=== PATIENT | male | born 1940 | race Caucasian/White ===

== ENCOUNTER 2016-11-23 11:50 | Emergency (ER) | payer MEDICARE, MEDICAID ==
[~2016-11-23] VITALS: Ht 182.9 cm; Wt 93.0 kg
[~2016-11-23 11:50] MED LIST: DUONEB 3 MG/3 ML3 ML IH; OMEPRAZOLE20 MG PO; SPIRIVA18 MCG; VICODIN 5/500 T1 TAB PO
[2016-11-23] MEDS ORDERED: LISINOPRIL20 MG PO (12:00)
[2016-11-23] MEDS ORDERED: CLONAZEPAM0.5 M1 PO (12:00)
[2016-11-23] MEDS ORDERED: POTASSIUM CHLO10 ME1 PO (12:01)
[2016-11-23] MEDS ORDERED: ISOSORBIDE MONO30 MG PO (12:01)
[2016-11-23] MEDS ORDERED: OMEPRAZOLE40 MG PO (12:01)
[2016-11-23] MEDS ORDERED: FUROSEMIDE 20MG20 MG PO (12:01)
[2016-11-23] MEDS ORDERED: SYMBICORT1 AE1 IH (12:02)
[2016-11-23] MEDS ORDERED: ATORVASTATIN CA20 M1 PO (12:02)
[2016-11-23] MEDS ORDERED: ASPIRIN 81MG TA81 MG PO (12:02)
[2016-11-23] MEDS ORDERED: TIZANIDINE HCL 44 MG PO (12:02)
[2016-11-23] MEDS ORDERED: IPRATROPIUM 2.2.5 ML INH (12:03)
--- NOTE | 2016-11-23 12:04 | Emergency Room Report ---
See Addendum History of Present Illness Time Seen by 1200 Presenting Problem in Triage Pt arrived:Walked Presenting Problem:PT REPORTS SWELLING IN GENITAL AREA X2 DAYS. PT REPORTS HE NOTICED ITCHING IN GENITAL AREA 2 DAYS AGO AND THEN SWELLING. PT DENIES ANY KNOWN INJURY. PT DENIES URINARY SYMPTOMS Onset of symptoms date/time:11/21/16/ or onset unknown for:MEDICAL HX UNKNOWN Treatment Prior to Arrival: [employer]MENT [employer] Provided by: Sepsis Risk Assessment: Temp: 97.9 B/P: 141/88 MAP: 105 Pulse: 87 Resp: 18 Recent fever? N Clinical Suspician of Infection? N Mental Status: 1 - Regular (Normal Baseline) Sepsis Risk:Low Sepsis Risk Have you (or family members/close friends) recently traveled outside the [place]? N If Yes, where/when: Have you had exposure to infectious disease within the past month? N TB? Other? Specify: Patient reports intense itching to scrotal area with edema over the past two days. Able to urinate. Not diabetic. No fever or vomiting. No urinary sx. ALLERGIES Coded Allergies: Macrolides (08/27/11) Home Medications Reported Medications Clonazepam (Clonazepam 0.5MG) 0.5 MG PO DAILY #30 Lisinopril 20 MG PO DAILY #30 Potassium Chloride 10 MEQ PO BID #60 Furosemide (Furosemide) 20 MG PO DAILY #30 Isosorbide Mononitrate (Isosorbide Mononitrate ER) 30 MG PO DAILY #30 Omeprazole (Omeprazole 40MG) 40 MG PO DAILY #30 TIZANIDINE HCL (Tizanidine Hcl 4 Mg Tablet) 4 MG PO BID #60 BUDESONIDE/FORMOTEROL FUMARATE (Symbicort 160-4.5 Mcg Inhaler) 1 PUFF IH BID #10 Atorvastatin Calcium 20 MG PO DAILY #30 ASPIRIN (Aspirin) 81 MG PO DAILY Ipratropium [place] (Ipratropium 0.5MG Neb Soln) 0.5 MG INH TID History Medical History General CAD? No Angina: Yes [place]: No Hypertension? No Hyperlipidemia? Yes CHF? No COPD? Yes Asthma? Yes Hernia? No Thyroid Problems? No Hypothyroidism? No CVA? No Seizures? No Diabetes? No UTI? No Stones? No GB Disease: Yes Hepatitis? No Arthritis? Yes Cataracts? No Glaucoma? No TB? No Cancer? No More? No Immunization Hx DT/Tetanus > 10 YRS Flu Refused Pneumonia Received In Past Surgical Hx Previous Surgery?Y LAP POPPY Family History Family Hx Diabetes No CAD Yes Hypertension Yes Hyperlipidemia No Cancer Yes TB No Social History Smoking Hx Smoker: Current Every Day Smoker Tobacco: Yes Type Cigarettes Packs/day 1 1/2 - 2 Packs Alcohol Alcohol: No Review of Systems All Other Systems Reviewed and Negative Genitourinary see HPI. Physical Exam Vital Signs Vital Signs Date Time Temp Pulse Resp B/P Pulse O2 O2 Flow FiO2 Ox Delivery Rate 11/23 1338 72 18 139/74 94 11/23 1153 97.9 87 18 141/88 96 General Appearance normal appearance, WD/WN, no apparent distress Eye Exam - bilateral eye normal exam, bilateral eye PERRL Respiratory Status No: respiratory distress. Cardiovascular no peripheral edema Male Genitalia grossly edematous scrotum with no klaudia masses or tenderness; no abscess or streaks; diffusely erythematous without any satellite lesions; genitals are eclipsed by edematous scrotum but no d/c or lesions noted. Neurologic alert, normal exam, no motor/sensory deficits (ambulatory) Medical Decision Making LABS/Meds/Orders Pt receiving controlled substance in ED? No Results/Orders Laboratory Tests 11/23/16 1205: Urine Color YELLOW, Urine Appearance CLEAR, Urine pH 6.0, Ur Specific [place] 1.015, Urine Protein NEGATIVE, Urine Ketones NEGATIVE, Urine Blood TRACE-INTACT, Urine Nitrate NEGATIVE, Urine Bilirubin NEGATIVE, Urine Urobilinogen 0.2, Ur Leukocyte Esterase TRACE H, Urine RBC OCC, Urine WBC OCC, Ur Squamous Epith Cells 3-5, Urine Bacteria 2+, Hyaline Casts 5-10, Urine Mucus 2+, Urine Glucose NEGATIVE Orders Procedure Date/time Status CULTURE, URINE 11/23 1205 Active US SCROTUM 11/23 1201 Active URINALYSIS/COMPLETE 11/23 1201 Complete XRAY/CT/US XRAY/CT/US Ultrasound scrotal US: good flow; bilateral hydroceles plus an area that is either walled off hydrocele or spermatocele per d/w Dr. Trejo; no hernia; not at all turbid. No free fluid in the pelvis. US Interpretation by reviewed by me, discussed w/radiologist US results normal (see above) Departure Departure Time of Disposition 3 Disposition DC Home or Self Care(routine) Clinical Impression Primary Impression: Hydrocele, bilateral Condition STABLE Referrals Radha GARCÍA,Andriy Vora Patient Instructions Hydrocele Additional Instructions Rx Doxycycline; see Dr. Garcia tomorrow at specialty clinic as you need a urology consult for the fluid in the scrotal area. Use jock strap for scrotal support. Appointment is at 11 AM on November 24, 2016. Discharge Counseling Counseled pt/family regarding diagnosis, test results, medications/RX, home care, follow up needs Prescriptions Current Visit Scripts Doxycycline Hyclate 100 MG PO BID #20 CAP ED Critical Care Critical Care No at 1436
[2016-11-23 12:08] LABS: URINE BILIRUBIN - DIPSTICK NEGATIVE (NEG); URINE BLOOD TRACE-INTACT (NEG)
--- OUTSIDE RECORDS SUMMARY | 2016-11-23 12:24 | External Medical Summary Rpt ---
Author Author , NATHANIEL ARMSTRONG Address Unknown Phone [email or web address] Providers Care Sustainability Coordinator Name Role Phone AHMED ADN, AHMED ADN Unavailable Unavailable ALI AMJ, ALI AMJ Unavailable Unavailable RAHMAN, RAHMAN Unavailable Unavailable [facility] Unavailable Unavailable [facility], [facility], [facility] Unavailable Unavailable [facility], Unavailable Unavailable [facility], Unavailable Unavailable [facility], Unavailable Unavailable [facility] LAITH DOWELL, LAITH Unavailable Unavailable [facility], Unavailable Unavailable [facility] DONAHUE LEONCIO, DONAHUE LEONCIO Unavailable Unavailable DONAHUE LEONCIO, DONAHUE LEONCIO Unavailable Unavailable VANESSA JR MATIAS, VANESSA Unavailable Unavailable JR MATIAS VANESSA JR MATIAS, VANESSA Unavailable Unavailable JR MATIAS CANDELARIA ASHWINI, Unavailable Unavailable CANDELARIA ASHWINI NIDA II, NIDA II Unavailable Unavailable TREVINO EDWARD, Unavailable Unavailable TREVINO EDWARD TREVINO EDWARD, Unavailable Unavailable TREVINO EDWARD ERUM WANG, Unavailable Unavailable LIBIACHNEIDER KATHLEEN WANG, Unavailable Unavailable HAGCHDANKIDER KATHLEEN DANIELSON, Unavailable Unavailable JOSE K, LIBIACHKAREN, JOSE K [facility] Unavailable Unavailable INC, [facility] ALAINA ERNST, FOLEY Unavailable Unavailable K[facility] WILLIAN FOLEY, Unavailable Unavailable WILLIAN FOLEY [facility], Unavailable Unavailable [facility], Unavailable Unavailable [facility] Unavailable Unavailable INC, [facility] OCHOA AUD, OCHOA AUD Unavailable Unavailable [facility] Unavailable Unavailable [facility], [facility] Unavailable Unavailable [facility], [facility] Unavailable Unavailable HOLDINGS, [facility] ZULETA, ZULETA Unavailable Unavailable [facility] Unavailable Unavailable ASSOCIAT, [facility] TOBIN, TOBIN Unavailable Unavailable 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 Unavailable Unavailable CO [facility], 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, Unavailable Unavailable [facility] LEONCIO DONAHUE MD Unavailable Unavailable CONSULTING SRV, LEONCIO DONAHUE MD CONSULT[facility]V SCALF, SCALF Unavailable Unavailable SCALF KLEVER, SCALF KLEVER Unavailable Unavailable LAURA, LAURA Unavailable Unavailable [facility], Unavailable Unavailable [facility] Unavailable Unavailable [facility], [facility] Unavailable Unavailable [facility], [facility] Unavailable Unavailable PHYSICIAN SERVI, [facility] SPEACH ALB, SPEACH Unavailable Unavailable ALB SPEACH ALB, SPEACH Unavailable Unavailable ALB TAMAREN VIKRAM, TAMAREN Unavailable Unavailable VIKRAM TAMAREN VIKRAM, TAMAREN Unavailable Unavailable VIKRAM АННАCHRISTOPHERN, KIMBERLY, Unavailable Unavailable [facility] Unavailable Unavailable [facility], Unavailable [facility], Unavailable [facility]available [facility] Purpose Continuity of Care Document - 08-11-2007 through 2016 Problems Code Diagnosis DOS Provider Status J449 CHRONIC 10-01-2016 [facility] DISEASE UNS I2510 ASHD RAMAH NAVAJO CHAPTER 05-14-2016 [facility]ARY [facility] ARTERY W/O INC ANGINA PECTORIS I509 HEART 05-14-2016 [facility] FAILURE [facility] UNSPECIFIED INC I272 OTHER 04-30-2016 [facility] HYPERTENSIO N 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 INC R0600 DYSPNEA 04-30-2016 [facility] UNSPECIFIED [facility] INC R0602 SHORTNESS 04-30-2016 [facility] OF BREATH PHYSIC[facility]ANS GROUP R9439 ABNORMAL 04-30-2016 [facility] RESULT OT PHYSICIANS CARDIOVASCU GROUP LR FUNCTION STUDY I10 ESSENTIAL 04-24-2016 [facility] HYP[facility] N I209 ANGINA 04-24-2016 [facility] PECT[facility]IS [facility] UNSPECIFIED INC I739 PERIPHERAL 04-24-2016 [place] [facility] DISEASE [facility]ING ASS UNSPECIFIED R0989 OTH SPEC SX 04-24-2016 [place] & SIGNS MEDICAL INVLV THE IMAGING ASS CIRC & RESP SYS Z720 TOBACCO USE 04-24-2016 [facility] I208 OTHER FORMS 04-15-2016 [facility] ANGINA PHYSICIANS PECTORIS GROUP I340 NONRHEUMATI 04-15-2016 [facility] INSUFFICIEN CY I517 CARDIOMEGAL 04-15-2016 [facility] J440 COPD WITH 04-08-2016 [facility] RESPIRATORY INFECTION R079 CHEST PAIN 04-08-2016 [facility] U[facility]PECIFIED SERV [facility] R4182 ALTERED 02-09-2016 [facility] STATUS UNSPECIFIED A25675 OTHER LONG 01-14-2016 [facility] TERM MIGUELANGEL CURRENT HOLDINGS DRUG THERAPY I5043 ACUTE ON 06-11-2015 [facility] DONAHUE CHRONIC COMB CONSULTING SYSTOLIC & SRV DIASTOLIC CHF D696 THROMBOCYTO 06-10-2015 [facility] PH[facility]ICIAN UNSPECIFIED SERVI J111 FLU D/T 06-10-2015 [facility] UNIDENTIFIE N PHYSICIAN D FLU VIRUS SERVI W/OTH RESP MANIF J441 CHRONIC 06-10-2015 [facility] OBSTRUCTIVE N PHYSICIAN PULMONARY SERVI DZ W/EXACERBAT ION N179 ACUTE 06-10-2015 [facility] KIDNEY N PHYSICIAN FAILURE SERVI UNSPECIFIED L48744 DECREASED 06-09-2015 [facility] BLOOD [facility] CELL COUNT [facility] UNSPECIFIED E785 HYPERLIPIDE 06-09-2015 [facility] UNSPECIFIED HOSPITAL 496 CHRONIC 12-24-2014 [facility] NEC 2720 PURE 11-09-2014 LEONCIO DONAHUE HYPERCHOLES TEROLEMIA CONSULTING SRV 4019 UNSPECIFIED 11-09-2014 LEON[facility]IO DONAHUE ESSENTIAL HYPERTENSIO CONSULTING N SRV 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 RAMAH NAVAJO CHAPTER CONSULTING CORONARY SRV ARTERY 66188 OTHER 09-18-2014 [place] NONSPECIFIC MEDICAL ABNORMAL IMAGING ASS FINDING OF LUNG FIELD 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 UNSPECIFIED 3899 UNSPECIFIED 04-30-2014 [facility] LOSS 5589 OTH&UNSPEC 05-03-2013 [facility] NONINFECTIO CLINIC US GASTROENTER ITIS&COLITI S 5781 BLOOD IN 05-03-2013 [facility] STOOL [facility]INIC 68443 ABDOMINAL 05-03-2013 [facility] PAIN, CLINIC UNSPECIFIED SITE 7823 EDEMA 10-11-2012 [facility] LEONCIO 7851 PALPITATION 09-01-2012 [facility] LE[facility] S 4280 CONGESTIVE 08-31-2012 [facility] HEART 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 FAILURE [facility] UNSPECIFIED [facility]OS 4293 CARDIOMEGAL 08-31-2012 [facility], Y AGRICULT[employer] 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 [facility] 4299 UNSPECIFIED 08-31-2012 [facility] HEART AGRICULTURE 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 [place]EASE [facility] 28597 OTHER 08-02-2012 [facility] DISEASES OF [place] KATHLEEN LUNG NOT ELSEWHERE CLASSIFIED 4928 OTHER 06-09-2012 [facility] EMPHYSEMA [facility] 75949 SHORTNESS 05-05-2012 [facility], OF BREATH AGRICULTURE 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 [facility] 7862 COUGH 02-22-2012 [facility], AGRICULTURE 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 [facility] 79966 OBSTRUCTIVE 02-08-2012 [facility] CHRONIC EDWARD BRONCHITIS WITH EXACERBATIO N 605 REDUNDANT 08-27-2011 [facility] PREPUCE AND MEM [facility] PHIMOSIS INC V5866 LONG-TERM 08-27-2011 [facility] USE OF MEM [facility] ASPIRIN INC 07086 UNSPECIFIED 08-20-2011 VANESSA HOLLAND URINARY MATIAS INCONTINENC E 71907 ESOPHAGEAL 08-18-2011 [facility] REFLUX 31118 ABDOMINAL 08-18-2011 [facility] PAIN, EPIGASTRIC 5780 HEMATEMESIS 08-14-2011 TAMAREN VIKRAM 25906 OTHER 08-13-2011 [place] DISEASES OF RADIOLOGY SPLEEN ASSOCIAT 47008 DIVERTICULO 08-13-[facility] COLON ASSOCIAT 5738 OTHER 08-13-[facility] SPECIFIED RADIOLOGY DISORDERS ASSOCIAT OF LIVER 50098 OTHER 08-13-[facility] SPECIFIED RADIOLOGY DISORDERS ASSOCIAT OF BLADDER 7245 UNSPECIFIED 08-13-2011 AHMED ADN BACKACHE 85461 CHEST PAIN 08-13-2011 AHMED ADN UNSPECIFIED 486 PNEUMONIA, 07-25-2011 TAMAREN VIKRAM ORGANISM UNSPECIFIED 49305 OTHER 07-23-2011 [facility] PAIN 99160 CHILLS 07-23-2011 [facility] WITHOUT HOSPITAL FEVER 55802 CLOSED 06-25-2011 [facility], FRACTURE OF [facility] RIB, [facility] UNSPECIFIED HOS 28690 CLOSED 06-25-2011 [place] FRACTURE OF RADIOLOGY ONE RIB ASSOCIAT E8889 UNSPECIFIED 06-25-2011 [place] [facility] ASSOCIAT 47182 GEN 04-22-2011 BEL[facility] OSTEOARTHRO EDWARD SIS INVOLVING MULTIPLE SITES 4619 ACUTE 02-23-2011 [facility] SINUSITIS, CLINIC PSC UNSPECIFIED 7080 ALLERGIC 01-30-2011 [facility] URTICARIA CLINIC PSC 9951 ANGIONEUROT 04-16-2010 MIN IC EDEMA CLINIC PSC NOT ELSEWHERE CLASSIFIED 4139 OTHER AND 01-13-2010 [facility] UNSPECIFIED CLINIC PSC ANGINA PECTORIS 52895 OSTEOARTHRO 10-24-2009 MIN S UNSPEC CLINIC PSC WHETHER GEN/LOC UNSPEC SITE 05223 COR 05-29-2009 [place] [facility] UNSPEC ASSOCIATES TYPE VESSEL PSC RAMAH NAVAJO CHAPTER/JESSICA T 7931 NONSPEC 05-29-2009 [facility] OT EXAM BODY STRUCT LUNG FIELD V1582 PERS HX 05-29-2009 [facility] TOBACCO USE HOSPITAL PRESENTING [facility] 7863 HEMOPTYSIS 12-05-2008 [facility] HOSPITAL 27973 OSTEOARTHRO 07-26-2008 [facility] SIS UNSPEC CLINIC PSC WHETHER GEN/LOC LOWER LEG 490 BRONCHITIS 04-27-2008 MIN NOT CLINIC PSC SPECIFIED ACUTE OR CHRONIC 59227 OTHER 04-27-2008 [facility] [place] [address] ABDOMINAL 01-17-2008 [facility] PAIN RIGHT HOSPITAL UPPER QUADRANT V4589 OTHER 01-17-2008 [facility] L STATUS OTHER V5869 LONG-TERM 01-17-2008 [facility] (CURRENT) HOSPITAL USE OF OTHER MEDICATIONS 6918 OTHER 08-11-2007 [facility] DERMATITIS AND RELATED CONDITIONS R06.02 SHORTNESS OF BREATH R07.9 CHEST PAIN, UNSPECIFIED Medications Na ND Rx Da Fi Fi Am Da Di Ph RX Ph St me C No te ll ll ou ys ag ar # ys at rm s nt no ma ic us Or Da si cy ia de te s n re d BE 68 10 10 1 40 13 SO 38 TA Ac NZ 38 -3 -3 .0 PE 85 MA ti ON 20 RS 05 RE ve AT 24 20 20 N AT 80 11 11 FA JA E 1 MS NE 20 LY T [address] UG CA PS UL E AL 24 10 10 0 24 24 SO 38 TA Ac LE 38 -0 -0 .0 PE 62 MA ti RG 50 7- 7- 00 RS 80 RE ve Y 46 20 20 N 25 26 11 11 FA JA 2 MS NE MG LY T CA DR PS UG UL E 00 10 10 0 30 30 SO 38 TA Ac 90 -0 -0 .0 PE 62 MA ti 45 7- 7- 00 RS 81 RE ve 82 20 20 N 94 11 11 FA JA 6 MS NE LY T DR UG CL 00 09 09 2 60 30 SO 38 TA Ac ON 22 -2 -2 .0 PE 50 MA ti AZ 83 3- 3- 00 RS 53 RE ve EP 00 20 20 N AM 35 11 11 FA JA 0 MS NE 0. LY T [address] UG TA BL ET DE 50 08 08 0 12 3 SO 38 TA Ac OM 38 -0 -0 0. PE 03 MA ti ET 30 4- 4- 00 RS 83 RE ve HAMPT[place] 80 20 20 0 N ZI 41 11 11 FA JA NE 6 MS NE -C LY T OD EI DR NE UG SY RU P CL 00 07 07 2 30 30 SO 37 TA Ac ON 22 -0 -0 .0 PE 77 MA ti AZ 83 5- 5- 00 RS 43 RE ve EP 00 20 20 N AM 35 11 11 FA JA 0 MS NE 0. LY T [address] UG TA BL ET 00 07 07 0 24 4 SO 37 TA Ac 12 -0 -0 0. PE 77 MA ti 10 5- 5- 00 RS 60 RE ve 63 20 20 0 N 81 11 11 FA JA 6 MS NE LY T DR UG DE 50 06 06 0 24 6 SO 37 TA Ac OM 38 -0 -0 0. PE 51 MA ti ET 30 2- 2- 00 RS 85 RE ve HAMPTON 80 20 20 0 N ZI 41 11 11 FA JA NE 6 MS NE -C LY T OD EI DR NE UG SY RU P CL 00 02 02 2 30 30 HO 10 TA Ac ON 22 -2 -2 .0 PK 15 MA ti AZ 83 4- 4- 00 IN 30 RE ve EP 00 20 20 S 9 N AM [address] JA 0 UG NE 0. T 5 CO MG MP AN TA Y BL IN ET C CL 00 09 01 2 30 30 HO 10 TA Ac ON 22 -2 -2 .0 PK 10 MA ti AZ 83 7- 1- 00 IN 97 RE ve EP 00 20 20 S 5 N AM [address] JA 0 UG NE 0. T 5 CO MG MP AN TA Y BL IN ET C DE 00 09 09 24 6 HO 10 TA Ac OM 60 -2 -2 0. PK 10 MA ti ET 31 7- 7- 00 IN 96 RE ve [place]AM[place] 58 20 20 0 S 2 N ZI [address] JA NE 8 UG NE -C T OD CO EI MP NE AN Y SY IN RU C P CL 00 09 09 2 30 30 HO 10 TA Ac ON 22 -2 -2 .0 PK 10 MA ti AZ 83 7- 7- 00 IN 97 RE ve EP 00 20 20 S 5 N AM [address] JA 0 UG NE 0. T 5 CO MG MP AN TA Y BL IN ET C PE 00 08 [address] Ac RM 47 -0 -0 .0 PK 09 ON ti ET 25 9- 9- 00 IN 62 E ve HR 24 20 20 S 0 DI IN [address] VIVIANA 7 UG E 1% D CO LO MP TI AN ON Y IN C CL 00 06 07 2 30 30 HO 10 TA Ac ON 22 -0 -2 .0 PK 07 MA ti AZ 83 1- 9- 00 IN 83 RE ve EP 00 20 20 S 0 N AM [address] CHRIS 0 UG NE 0. T 5 CO MG MP AN TA Y BL IN ET C CL 00 06 07 2 30 30 HO 10 TA Ac ON 22 -0 -0 .0 PK 07 MA ti AZ 83 1- 1- 00 IN 83 RE ve EP 00 20 20 S 0 N AM [address] PEREZ 0 UG NE 0. T 5 CO MG MP AN TA Y BL IN ET C CL 00 06 06 2 30 30 HO 10 TA Ac ON 22 -0 -0 .0 PK 07 MA ti AZ 83 1- 1- 00 IN 83 RE ve EP 00 20 20 S 0 N AM [address] CHRIS 0 UG NE 0. T 5 CO MG MP AN TA Y BL IN ET C CL 00 11 04 2 30 30 HO 10 TA Ac ON 22 -1 -2 .0 PK 01 MA ti AZ 83 9- 3- 00 IN 76 RE ve EP 00 20 20 S 8 N AM [address] PEREZ 0 UG NE 0. T 5 CO MG MP AN TA Y BL IN ET C CL 00 11 03 2 30 30 HO 10 TA Ac ON 22 -1 -0 .0 PK 01 MA ti AZ 83 9- 3- 00 IN 76 RE ve EP 00 20 20 S 8 N AM [address] CHRIS 0 UG NE 0. T 5 CO MG MP AN TA Y BL IN ET C CL 00 11 12 00 30 30 HO 10 TA Ac ON 22 -1 -0 .0 PK 01 MA ti AZ 83 9- 3- 00 IN 76 RE ve EP 00 20 20 S 8 N AM [address] PEREZ 0 UG NE 0. T 5 CO MG IN TA C BL ET CL 00 04 08 02 30 30 HO 99 TA Ac ON 18 -0 -1 .0 PK 43 MA ti AZ 50 2- 3- 00 IN 73 RE ve EP 06 20 20 S N AM [address] PEREZ 5 UG NE 0. T 5 CO MG IN TA C BL ET 53 08 08 00 12 12 HO 99 TA Ac 01 -0 -1 0. PK 79 MA ti 40 5- 3- 00 IN 82 RE ve 54 20 20 0 S N [address] PEREZ 7 UG NE T CO IN C CL 00 04 06 01 30 30 HO 99 TA Ac ON 18 -0 -0 .0 PK 43 MA ti AZ 50 2- 4- 00 IN 73 RE ve EP 06 20 20 S N AM [address] PEREZ 5 UG NE 0. T 5 CO MG IN TA C BL ET 53 04 05 00 12 12 HO 99 TA Ac 01 -2 -0 0. PK 50 MA ti 40 3- 7- 00 IN 65 RE ve 54 20 20 0 S N [address] PERE[facility] 7 UG NE T CO IN C CL 00 04 04 00 30 30 HO 99 TA Ac ON 18 -0 -0 .0 PK 43 MA ti AZ 50 2- 9- 00 IN 73 RE ve EP 06 20 20 S N AM [address] PEREZ 5 UG NE 0. T 5 CO MG IN TA C BL ET 53 01 01 00 12 12 HO 99 TA Ac 01 -2 -3 0. PK 21 MA ti 40 2- 0- 00 IN 64 RE ve 54 20 20 0 S N [address] PEREZ 7 UG NE T CO IN C CL 00 01 01 00 15 30 HO 99 TA Ac ON 09 -0 -1 .0 PK 15 MA ti AZ 30 5- 5- 00 IN 74 RE ve EP 83 20 20 S N AM [address] PEREZ 1 1 UG NE T MG CO TA IN BL C ET 63 01 01 [address] Ac 82 -0 -1 .0 PK 15 ON ti 40 2- 5- 00 IN 18 E ve 05 20 20 S DI [address] MICHELLE 0 UG E D CO IN C CL 00 10 10 00 30 30 HO 98 No Ac ON 18 -1 -2 .0 PK 89 t ti AZ 50 6- 3- 00 IN 99 Av ve EP 06 20 20 S ai AM [address] rascon 1 UG bl 0. e 5 CO MG IN TA C BL ET CL 00 07 09 01 30 30 HO 98 No Ac ON 18 -1 -2 .0 PK 62 t ti AZ 50 7- 6- 00 IN 23 Av ve EP 06 20 20 S ai AM [address] rascon 1 UG bl 0. e 5 CO MG IN TA C BL ET CL 00 07 08 00 30 30 HO 98 No Ac ON 18 -1 -0 .0 PK 62 t ti AZ 50 7- 1- 00 IN 23 Av ve EP 06 20 20 S ai AM [address] rascon 1 UG bl 0. e 5 CO MG IN TA C BL ET BE 68 04 04 00 90 30 HO 98 No Ac NZ 38 -1 -2 .0 PK 34 t ti ON 20 7- 4- 00 IN 26 Av ve AT 24 20 20 S ai AT [address] León 1 UG bl 20 e 0 CO MG IN CA C PS UL E Procedures Procedure DOS Code Location Performer Comment ADMN SET A7003 YOUR YOUR VOL 7 PHARMACY PHARMACY NONFILTR [employer] PNEUMAT NEBULIZR DISPBL ADMN SET A7003 YOUR YOUR VOL 7 PHARMACY PHARMACY NONFIL [employer] PNEUMAT NEBULIZR DISPBL IPRATROPI J7644 YOUR YOUR UM 7 PHARMACY PHARMACY BR[facility] [employer] INHAL NON-CP U DOSE PER MG PRESSURIZ 18412 [facility] ED/NONPRE 7 [facility] SS[facility]ED [facility] INC INHALATIO N TREATMENT BRNCDILAT 36951 [facility] RSPSE 7 [facility] SPMTRY INC INC PRE&POST- BRNCDILAT ADMN GAS 49378 [facility] DILUT/WAS 7 [facility] HOUT LUNG INC INC VOL W/[place] DISTRIB VENT&[place] [address] [facility] DIFFUSING 7 [facility] CAPACITY INC INC NONINVASI 03678 [facility] VE 7 [facility] EAR/PULSE INC INC OXIMETRY MULTIPLE DETER ADMN SET A7003 YOUR YOUR VOL 7 PHARMACY PHARMACY NONFILTR [employer] PNEUMAT NEBULIZR DISPBL IPRATROPI J7644 YOUR YOUR UM 7 PHARMACY PHARMACY BR[facility]IDE [employer] INHAL NON-CP U DOSE PER MG NEBULIZER E0570 [facility] WITH 7 HOME HOME [facility] R EQUIPME EQUIPME ADMN SET A7003 YOUR YOUR VOL 7 PHARMACY PHARMACY [facility] PNEUMAT NEBULIZR DISPBL IPRATROPI J7644 YOUR YOUR UM 7 PHARMACY PHARMACY [facility] INHAL NON-CP U DOSE PER MG PHRM Q0513 YOUR YOUR DISPENSIN 7 PHARMACY PHARMACY G FEE [facility] INHALATIO N RX; PER 30 DAYS ECG 23705 [facility] ROUTINE 7 [facility] ECG INC INC W/LEAST 12 LDS TRCG ONLY W/O I&R NEBULIZER E0570 AXEL REYNA WITH 7 [facility] R EQUIPME EQUIPME LOCM Q9967 [facility] 300-399 7 [facility] MG/ML INC INC IODINE CONCENTRA TION PER ML BASIC 04973 [facility] METABOLIC 7 [facility] PANEL INC INC CALCIUM TOTAL GASES 07860 [facility] BLOOD O2 7 [facility] SATURATIO INC INC N ONLY DIRECT JOSÉ INTRDUCR/ C1894 [facility] SHEATH 7 [facility] NOT GUID INC INC INTRACARD EP NON-LASR R & L HRT 72607 [facility] CATH 7 PHYSICIAN WINJX HRT S GROUP ART& L VENTR IMG GUIDE C1769 [facility] WIRE 7 [facility] INC INC CATHETER C1725 [facility] TRANSLUMI 7 [facility] NAL INC INC ANGIOPLAS TY NON-LASER INJECTION J1644 [facility] HEPARIN 7 [facility] SODIUM INC INC PER 1000 UNITS BLOOD 44431 [facility] COUNT 7 [facility] COMPLETE INC INC AUTO&AUTO DIFRNTL WBC ECG 26170 [facility] ROUTINE 7 [facility] ECG INC INC W/LEAST 12 LDS TRCG ONLY W/O I&R NON-INVAS 14155 [place] [facility] NIC 6 MEDICAL PHYSIOLOG IMAGING IC STUDY ASS EXTREMITY 3 LEVLS DUPLEX 33714 [facility] SCAN 6 MEDICAL EXTRACRAN IMAGING IAL ART ASS COMPL BI STUDY TECHNETIU A9500 [facility] M TC-99M 6 [facility] SESTAMIBI INC INC DX PER STUDY DOSE CV STRS 86867 [facility] TST 6 [facility] XERS&/OR INC INC RX CONT ECG TRCG ONLY MYOCARDIA 21557 [facility] L SPECT 6 [facility] MULTIPLE INC INC STUDIES ECHO 07781 [facility] TTHRC R-T 6 MEM H[facility]OS[facility] 2D INC INC W/WOM-MOD E COMPL SPEC&COLR D ECHO 39655 [place] [facility] TRANSTHOR 6 MEDICAL C R-T 2D SERV W/WO FOUNDATIO M-MODE N REC F-UP/LMTD INJECTION J2785 [facility] 6 [facility] REGADENOS INC INC ON 0.1 MG NEBULIZER E0570 AXEL REYNA WITH 6 HOME HOME [facility] MEDICAL MEDICAL R EQUIPME EQUIPME ECG 45813 [facility] ROUTINE 6 [facility] ECG INC INC W/LEAST 12 LDS TRCG ONLY W/O I&R IPRATROPI J7644 YOUR YOUR UM 6 PHARMACY PHARMACY BROMIDE [employer] INHAL NON-CP U DOSE PER MG PHRM Q0513 YOUR YOUR DISPENSIN 6 PHARMACY PHARMACY G FEE [employer] INHALATIO N RX; PER 30 DAYS ADMN SET A7003 YOUR YOUR SM VOL 6 PHARMACY PHARMACY [facility] [place] [address] [facility] [place] SEBASTIAN HEAD/BRAI 6 RADIOLOGY N W/O CONTRAST MATERIAL RADIOLOGI 07196 [facility] [place] SCALF C EXAM 6 RADIOLOGY CHEST 2 VIEWS FRONTAL&L ATERAL IPRATROPI J7644 YOUR YOUR UM 6 PHARMACY PHARMACY BROMIDE [employer] INHAL NON-CP U DOSE PER MG PHRM Q0513 YOUR YOUR DISPENSIN 6 PHARMACY PHARMACY G FEE [employer] INHALATIO N RX; PER 30 DAYS ADMN SET A7003 YOUR YOUR SM VOL 6 PHARMACY PHARMACY NONFIL[employer] LLC PNEUMAT NEBULIZR DISPBL DRUG TST G0483 [facility] DEFINITV [address] [place] [employer] HOLDINGS METH P DAY 22/MORE DR TAYLOR ADMN SET A7003 AXEL REYNA SM VOL 6 HOME HOME NONFILTR MEDICAL MEDICAL PNEUMAT EQUIPME EQUIPME NEBULIZR DISPBL NEBULIZER E0570 AXEL REYNA WITH 6 HOME HOME COMPRESSO MEDICAL MEDICAL R EQUIPME EQUIPME ADMN SET A7003 YOUR OCHOA AUD SM VOL 6 PHARMACY NONFILTR LLC PNEUMAT NEBULIZR DISPBL PHRM Q0513 YOUR [place] AUD DISPENSIN 6 PHARMACY G FEE LLC INHALATIO N RX; PER 30 DAYS IPRATROPI J7644 YOUR [place]CHOA AUD UM 6 PHARMACY BROMIDE LLC INHAL NON-CP U DOSE PER MG IPRATROPI J7644 YOUR YOUR UM 6 PHARMACY PHARMACY [facility] LLC LLC INHAL NON-CP U DOSE PER MG PHRM Q0513 YOUR YOUR DISPENSIN 6 PHARMACY PHARMACY G FEE LLC LLC INHALATIO N RX; PER 30 DAYS ADMN SET A7003 YOUR YOUR VOL 6 PHARMACY PHARMACY NONFILTR LLC LLC PNEUMAT NEBULIZR [facility] [address] [facility] 6 PREMA DAY PHYSICIAN MANAGEMEN SERVI T > 30 MIN SBSQ 96431 [place] [address] PREMA CARE/DAY PHYSICIAN 25 SERVI MINUTES SBSQ 11923 [place] [address] PREMA CARE/DAY PHYSICIAN 25 SERVI MINUTES ECHO 12635 LEONCIO DONAHUE DONAHUE LEONCIO TTHRC R-T 6 2D CONSULTIN W/WOM-MOD G SRV E COMPL SPEC&COLR D SBSQ 74031 [place] [address] PREMA CARE/DAY PHYSICIAN 35 SERVI MINUTES INITIAL 36506 [facility] 6 [facility] C[facility]/DAY PHYSICIAN 70 SERVI MINUTES RADIOLOGI 27326 [facility] [place] SCALF KLEVER C EXAM 6 RADIOLOGY CHEST 2 VIEWS FRONTAL&L ATERAL IPRATROPI J7644 YOUR YOUR UM 5 PHARMACY PHARMACY [facility] LLC LLC INHAL NON-CP U DOSE PER MG PHRM Q0513 YOUR YOUR DISPENSIN 5 PHARMACY PHARMACY G FEE LLC LLC INHALATIO N RX; PER 30 DAYS PHRM Q0513 YOUR YOUR DISPENSIN 5 [facility] INHALATIO N RX; PER 30 DAYS IPRATROPI J7644 YOUR YOUR 5 [facility] INHAL NON-CP U DOSE PER MG ECG 58075 LEONCIO DONAHUE DONAHUE LEONCIO ROUTINE 5 MD ECG CONSULTIN W/LEAST G SRV 12 LDS W/I&R IPRATROPI J7644 YOUR YOUR 5 [facility] INHAL NON-CP U DOSE PER MG PHRM Q0513 YOUR YOUR DISPENSIN 5 [facility] INHALATIO N RX; PER 30 DAYS PHRM Q0513 YOUR YOUR DISPENSIN 5 [facility] INHALATIO N RX; PER 30 DAYS IPRATROPI J7644 YOUR YOUR 5 [facility] INHAL NON-CP U DOSE PER MG CT THORAX 00129 [facility] ASHWINI CONTRAST IMAGING MATERIAL ASS IPRATROPI J7644 YOUR YOUR 5 [facility] INHAL NON-CP U DOSE PER MG PHRM Q0513 YOUR YOUR DISPENSIN 5 [facility] INHALATIO N RX; PER 30 DAYS COMPRE 66401 SPEACH SPEACH AUDIOMETR 5 ALB ALB Y THRESHOLD EVAL SP RECOGNIJ COLLECTIO 69837 MIN [facility] N VENOUS 5 CLINIC CLINIC BLOOD VENIPUNCT URE IPRATROPI J7644 YOUR YOUR 4 [facility] INHAL NON-CP U DOSE PER MG PHRM Q0513 YOUR YOUR DISPENSIN 4 [facility] INHALATIO N RX; PER 30 DAYS PHRM Q0513 YOUR YOUR DISPENSIN 4 [facility] INHALATIO N RX; PER 30 DAYS IPRATROPI J7644 YOUR YOUR 4 [facility] INHAL NON-CP U DOSE PER MG IPRATROPI J7644 YOUR YOUR 4 [facility] INHAL NON-CP U DOSE PER MG PHRM Q0513 YOUR YOUR DISPENSIN 4 [facility] INHALATIO N RX; PER 30 DAYS IPRATROPI J7644 YOUR YOUR 4 [facility] INHAL NON-CP U DOSE PER MG PHRM Q0513 YOUR YOUR DISPENSIN 4 [facility] INHALATIO N RX; PER 30 DAYS IPRATROPI J7644 YOUR YOUR 4 [facility] INHAL NON-CP U DOSE PER MG PHRM Q0513 YOUR YOUR DISPENSIN 4 [facility] INHALATIO N RX; PER 30 DAYS IPRATROPI J7644 YOUR YOUR 4 [facility] INHAL NON-CP U DOSE PER MG PHRM Q0513 YOUR YOUR DISPENSIN 4 [facility] INHALATIO N RX; PER 30 DAYS IPRATROPI J7644 YOUR YOUR 4 [facility] INHAL NON-CP U DOSE PER MG PHRM Q0513 YOUR YOUR DISPENSIN 4 [facility] INHALATIO N RX; PER 30 DAYS PHRM Q0513 YOUR YOUR DISPENSIN 4 [facility] INHALATIO N RX; PER 30 DAYS IPRATROPI J7644 YOUR YOUR 4 [facility] INHAL NON-CP U DOSE PER MG ADMN SET A7003 YOUR YOUR VOL 4 [facility] PNEUMAT NEBULIZR DISPBL IPRATROPI J7644 YOUR YOUR 3 [facility] INHAL NON-CP U DOSE PER MG PHRM Q0513 YOUR YOUR DISPENSIN 3 [facility] INHALATIO N RX; PER 30 DAYS PHRM Q0513 YOUR YOUR DISPENSIN 3 [facility] INHALATIO N RX; PER 30 DAYS IPRATROPI J7644 YOUR YOUR 3 PHARMACY PHARMACY [employer] [facility] INHAL NON-CP U DOSE PER MG DUP-SCAN 82497 DONAHUE LEONCIO DONAHUE LEONCIO XTR VEINS 3 COMPLETE BILATERAL STUDY IPRATROPI J7644 YOUR YOUR 3 [facility] INHAL NON-CP U DOSE PER MG PHRM Q0513 YOUR YOUR DISPENSIN 3 PHARMACY PHARMACY [facility] INHALATIO N RX; PER 30 DAYS IPRATROPI J7644 YOUR YOUR 3 [facility] INHAL NON-CP U DOSE PER MG PHRM Q0513 YOUR YOUR DISPENSIN 3 [facility]Y [facility] INHALATIO N RX; PER 30 DAYS ECHO 85497 DONAHUE LEONCIO DONAHUE LEONCOI TTHRC R-T 3 2D W/WOM-MOD E COMPL SPEC&COLR D ECHO 58472 [employer], 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 2D PEREZ PEREZ W/WOM-MOD CO HOS CO HOS E COMPL SPEC&COLR D ECG 45779 DONAHUE LEONCIO DONAHUE LEONCIO ROUTINE 3 ECG W/LEAST 12 LDS I&R ONLY ECG 57881 [employer], ROUTINE 3 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 ECG PEREZ PEREZ W/LEAST CO HOS CO HOS 12 LDS TRCG ONLY W/O I&R IPRATROPI J7644 YOUR YOUR 3 [facility] INHAL NON-CP U DOSE PER MG PHRM Q0513 YOUR YOUR DISPENSIN 3 [facility]ARMACY PHARMAC[facility] INHALATIO N RX; PER 30 DAYS RADIOLOGI 16814 FABIAN PERALTA C EXAM 3 EIDER KATHLEEN EIDER KATHLEEN CHEST 2 VIEWS FRONTAL&L ATERAL BLOOD 38888 [employer], COUNT 3 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 COMPLETE PEREZ TODD AUTO&AUTO CO HOS CO HOS DIFRNTL WBC COMPREHEN 22581 [employer], SIVE 3 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 METABOLIC PEREZ TODD PANEL CO HOS CO HOS IPRATROPI J7644 YOUR YOUR 3 PHARMACY PHARMAC[facility] INHAL NON-CP U DOSE PER MG PHRM Q0513 YOUR YOUR DISPENSIN 3 [facility]ARMACY PHARMACY [facility] INHALATIO N RX; PER 30 DAYS 3D 69393 SHAYY LUCAS RENDERING 3 [facility] INC INC W/INTERP& POSTPROC DIFF WORK STATION CT THORAX 64218 CANDELARIA GAONA W/O 3 ASHWINI ASHWINI CONTRAST MATERIAL NONINVASI 39930 [facility] LUCAS VE 3 [facility] EAR/PULSE INC INC OXIMETRY SINGLE DETER SPMTRY 88221 SHAYY LUCAS W/VC 3 [facility] EXPIRATOR INC INC Y SHAWNA W/WO MXML VOL VNTJ RADIOLOGI 48160 LAITH OZUNA C EXAM 3 MAGALYS MAGALYS CHEST 2 VIEWS FRONTAL&L ATERAL ADMN SET A7003 YOUR YOUR SM VOL 2 PHARMACY PH[facility]ACY [facility] PNEUMAT NEBULIZR DISPBL ALBUTEROL J7620 YOUR YOUR TO 2.5 2 PHARMACY PHARMACY MG IPRATROPI UM BROM TO 0.5 MG RADIOLOGI 52147 [facility], MHC INC, C EXAM 2 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 CHEST 2 PEREZ PEREZ VIEWS CO HOS CO HOS FRONTAL&L ATERAL INJECTION J0696 BELINDA TREVINO 2 [facility] CEFTRIAXO NE SODIUM PER 250 MG INJECTION J1030 BELINDA TREVINO 2 [facility] METHYLPRE DNISOLONE ACETATE 40 MG ALBUTEROL J7620 YOUR YOUR TO 2.5 2 PHARMACY PHARMACY [facility] IPRATROPI UM BROM TO 0.5 MG ADMN SET A7003 YOUR YOUR SM VOL [address] [facility] PNEUMAT NEBULIZR DISPBL ADMN SET A7003 YOUR YOUR SM VOL [address] [facility] PNEUMAT NEBULIZR DISPBL ALBUTEROL J7620 YOUR YOUR TO 2.5 2 PHARMACY PHARMACY [facility] IPRATROPI UM BROM TO 0.5 MG ALBUTEROL J7620 YOUR YOUR TO 2.5 2 PHARMACY PHARMACY [facility] IPRATROPI UM BROM TO 0.5 MG ADMN SET A7003 YOUR YOUR SM VOL [address] [facility] PNEUMAT NEBULIZR DISPBL ALBUTEROL J7620 YOUR YOUR TO 2.5 2 PHARMACY PHARMACY [facility] IPRATROPI UM BROM TO 0.5 MG ADMN SET A7003 YOUR YOUR SM VOL 2 PHARMACY PHARMACY [facility] PNEUMAT NEBULIZR DISPBL ADMN SET A7003 YOUR YOUR SM VOL 2 [facility] PNEUMAT NEBULIZR DISPBL ALBUTEROL J7620 YOUR YOUR TO 2.5 2 PHARMACY PHARMACY [facility] IPRATROP[place] 0[place] [address] SHAYY LUCAS INFUSION 2 [facility] THERAPY/P INC INC ROPHYLAXI S /DX 1ST TO 1 HR THERAPEUT 52312 SHAYY LUCAS IC 2 [facility] INJECTION INC [place] [address] SHAYY LUCAS INFUSION 2 [facility] THERAPY INC INC PROPHYLAX IS/DX EA HOUR CIRCUMCIS 62861 SHAYY LUCAS ION AGE 2 [facility] >28 DAYS INC INC ECG 96054 DONAHUE LEONCIO DONAHUE LEONCIO ROUTINE 2 ECG W/LEAST 12 LDS I&R ONLY OBSERVATI 18897 LAUREN AGUILAR ON CARE 2 Apr DISCHARGE MANAGEMEN T RADEX ABD 17537 [facility] COMPL 2 EIDER KATHLEEN AQT ABD RADIOLOGY W/S/E/D ASSOCI[place] [place] [address] [facility] ABDOMEN & 2 MAGALYS PELVIS RADIOLOGY W/O ASSOCIAT CONTRST 1/> [facility] 01617 LAUREN AGUILAR DISCHARGE 2 Apr DAY MANAGEMEN T 30 MIN/< RADIOLOGI 93672 [facility] C 2 KLEVER EXAMINATI RADIOLOGY ON CHEST ASSOCIAT SING[place]IEW FRONTAL RADEX 38448 [facility] RIBS UNI 2 EIDER KATHLEEN W/POSTERO RADIOLOGY ANT CH ASSOCIAT MINIMUM 3 VIEWS RADIOLOGI 22517 [facility] C EXAM 2 EIDER KATHLEEN CHEST 2 RADIOLOGY VIEWS ASSOCIAT FRONTAL&L ATERAL ALBUTEROL J7620 YOUR YOUR TO 2.5 2 PHARMACY PHARMACY [facility] IPRATROPI UM BROM TO 0.5 MG ADMN SET A7003 YOUR YOUR SM VOL 2 PHARMACY PHARMACY [facility] PNEUMAT NEBULIZR DISPBL INJECTION J0696 BELINDA TREVINO 2 [facility] CEFTRIAXO NE SODIUM PER 250 MG INJECTION J1030 BELINDA TREVINO 2 [facility] METHYLPRE DNISOLONE ACETATE 40 MG ALBUTEROL J7620 YOUR YOUR TO 2.5 2 PHARMACY PHARMACY [facility] IPRATROPI UM BROM TO 0.5 MG ADMN SET A7003 YOUR YOUR SM VOL 2 PHARMACY PHARMACY [facility] PNEUMAT NEBULIZR DISPBL ADMN SET A7003 YOUR YOUR SM VOL 1 PHARMACY PHARMACY [facility] PNEUMAT NEBULIZR DISPBL ALBUTEROL J7620 YOUR YOUR TO 2.5 1 PHARMACY PHARMACY MG IPRATROPI UM BROM TO 0.5 MG INJECTION J1100 BELINDA TREVINO 1 [facility] DEXAMETHO SONE SODIUM PHOSPHATE 1 MG INJECTION J1030 BELINDA TREVINO 1 [facility] METHYLPRE DNISOLONE ACETATE 40 MG INJECTION J0696 BELINDA TREVINO 1 [facility] CEFTRIAXO NE SODIUM PER 250 MG INJECTION J1100 BELINDA TREVINO 1 [facility] DEXAMETHO SONE SODIUM PHOSPHATE 1 MG ALBUTEROL J7620 YOUR YOUR TO 2.5 1 PHARMACY PHARMACY [facility] IPRATROPI UM BROM TO 0.5 MG ADMN SET A7003 YOUR YOUR SM VOL [address] [facility] PNEUMAT NEBULIZR DISPBL ADMN SET A7003 YOUR YOUR SM VOL [address] [facility] PNEUMAT NEBULIZR DISPBL ALBUTEROL J7620 YOUR YOUR TO 2.5 1 PHARMACY PHARMACY [facility] IPRATROPI UM BROM TO 0.5 MG PHRM Q0513 YOUR YOUR DISPENSIN 1 PHARMACY PHARMACY [facility] [employer] [facility] INHALATIO N RX; PER 30 DAYS INJECTION J1100 MIN TREVINO 1 CLINIC [facility] DEXAMETHO PSC SONE SODIUM PHOSPHATE 1 MG RADIOLOGI 16342 PEREZ Stahl EXAM 1 CO CO CHEST 2 HOSPITAL HOSPITAL VIEWS FRONTAL&L ATERAL INJECTION J1100 MIN TREVINO 1 CLINIC [facility] DEXAMETHO PSC SONE SODIUM PHOSPHATE 1 MG ALBUTEROL J7620 YOUR YOUR TO 2.5 1 PHARMACY PHARMACY [facility] IPRATROPI UM BROM TO 0.5 MG ADMN SET A7003 YOUR YOUR SM VOL 1 [facility] PNEUMAT NEBULIZR DISPBL PHRM Q0513 YOUR YOUR DISPENSIN 1 PHARMACY PHARMACY [facility] INHALATIO N RX; PER 30 DAYS PHRM Q0513 YOUR YOUR DISPENSIN 1 PHARMACY PHARMACY [facility] INHALATIO N RX; PER 30 DAYS ALBUTEROL J7620 YOUR YOUR TO 2.5 1 PHARMACY PHARMACY [facility] IPRATROPI UM BROM TO 0.5 MG ADMN SET A7003 YOUR YOUR SM VOL 1 [facility] [employer] [facility] PNEUMAT NEBULIZR DISPBL ADMN SET A7003 YOUR YOUR SM VOL 0 [facility] PNEUMAT NEBULIZR DISPBL ALBUTEROL J7620 YOUR YOUR TO 2.5 0 PHARMACY PHARMACY [facility] IPRATROPI UM BROM TO 0.5 MG PHRM Q0513 YOUR YOUR DISPENSIN 0 PHARMACY PHARMACY [facility] INHALATIO N RX; PER 30 DAYS INJECTION J1030 MIN TAMAREN 0 CLINIC VIKRAM METHYLPRE PSC DNISOLONE ACETATE 40 MG INJECTION J1100 MIN TAMAREN 0 CLINIC VIKRAM DEXAMETHO PSC SONE SODIUM PHOSPHATE 1 MG ADMN SET A7003 YOUR YOUR SM VOL 0 PHARMACY PHARMACY [facility] PNEUMAT NEBULIZR DISPBL PHRM Q0513 YOUR YOUR DISPENSIN 0 PHARMACY PHARMACY [facility] INHALATIO N RX; PER 30 DAYS ALBUTEROL J7620 YOUR YOUR TO 2.5 0 PHARMACY PHARMACY [facility] IPRATROPI UM BROM TO 0.5 MG PHRM Q0513 YOUR YOUR DISPENSIN 0 PHARMACY PHARMACY [facility] INHALATIO N RX; PER 30 DAYS ALBUTEROL J7620 YOUR YOUR TO 2.5 0 PHARMACY PHARMACY MG & LLC LLC IPRATROPI UM BROM TO 0.5 MG ADMN SET A7003 YOUR YOUR SM VOL 0 PHARMACY PHARMACY NON[facility] LLC LLC PNEUMAT NEBULIZR DISPBL CREATINE 77928 PEREZ TODD KINASE 0 [facility] MYOGLOBIN 72975 [facility] BASIC 88717 [facility]EREZ TODD METABOLIC 0 [facility] CALCIUM TOTAL CREATINE 89139 PEREZ TODD KINASE MB 0 [facility] ONLY COLLECTIO 33327 PEREZ TODD N VENOUS 0 CO CO BLOOD [facility] VENIPUNCT URE BLOOD 85254 PEREZ TODD COUNT 0 CO CO SMEAR [facility] MCRSCP W/MNL DIFRNTL WBC COUNT LIPID 24054 PEREZ TODD PANEL 0 CO [place] [facility] [address] PEREZ TODD TROPONIN 0 CO CO QUANTITAT [facility] NIC BLOOD 50598 PEREZ TODD COUNT 0 CO CO COMPLETE [facility] AUTO&AUTO DIFRNTL WBC PHRM Q0513 YOUR YOUR DISPENSIN 0 PHARMACY PHARMACY G FEE INHALATIO N RX; PER 30 DAYS ADMN SET A7003 YOUR YOUR SM VOL 0 PHARMACY PHARMACY NONFILTR PNEUMAT NEBULIZR DISPBL ALBUTEROL J7620 YOUR YOUR TO 2.5 0 PHARMACY PHARMACY MG & IPRATROPI UM BROM TO 0.5 MG COLLECTIO 14767 PEREZ TODD N VENOUS 0 CO CO BLOOD [facility] VENIPUNCT URE CT THORAX 06506 PEREZ TODD 0 CO CO W/[facility] T MATERIAL 3D 01290 PEREZ TODD RENDERING 0 CO CO W/[facility] & POSTPROCE SS SUPERVISI ON ALBUTEROL J7620 YOUR YOUR TO 2.5 0 PHARMACY PHARMACY MG & IPRATROPI UM BROM TO 0.5 MG PHRM Q0513 YOUR YOUR DISPENSIN 0 PHARMACY PHARMACY G FEE INHALATIO N RX; PER 30 DAYS NEBULIZER E0570 AXEL REYNA WITH 0 HOME MED HOME MED COMPRESSO EQUIP. EQUIP. R LLC LLC NEBULIZER E0570 AXEL REYNA WITH 9 HOME MED HOME MED COMPRESSO EQUIP. EQUIP. R LLC [facility] ADMN SET A7003 AXEL REYNA VOL 9 HOME MED HOME MED NONFILTR EQUIP. EQUIP. PNEUMAT [facility] NEBULIZR DISPBL ALBUTEROL J7620 YOUR YOUR TO 2.5 9 PHARMACY PHARMACY & [employer] [facility] IPRATROPI UM BROM TO 0.5 MG PHRM Q0513 YOUR YOUR DISPENSIN 9 PHARMACY PHARMACY [facility] [employer] [facility] INHALATIO N RX; PER 30 DAYS NEBULIZER E0570 AXEL REYNA WITH 9 HOME MED HOME MED COMPRESSO EQUIP. EQUIP. R [employer] [facility] ALBUTEROL J7620 YOUR YOUR TO 2.5 9 PHARMACY PHARMACY [facility] IPRATROPI UM BROM TO 0.5 MG PHRM Q0513 YOUR YOUR DISPENSIN 9 PHARMACY PHARMACY [facility] [employer] [facility] INHALATIO N RX; PER 30 DAYS NEBULIZER E0570 AXEL REYNA WITH 9 HOME MED HOME MED COMPRESSO EQUIP. EQUIP. R [employer] [facility] ALBUTEROL J7620 YOUR YOUR TO 2.5 9 PHARMACY PHARMACY MG & IPRATROPI UM BROM TO 0.5 MG PHRM Q0513 YOUR YOUR DISPENSIN 9 PHARMACY PHARMACY [facility] INHALATIO N RX; PER 30 DAYS NEBULIZER E0570 AXEL REYNA WITH 9 HOME MED HOME MED COMPRESSO EQUIP. EQUIP. R [employer] [facility] ALBUTEROL J7620 YOUR YOUR TO 2.5 9 PHARMACY PHARMACY & [employer] [facility] IPRATROPI UM BROM TO 0.5 MG CREATININ 53118 PEREZ TODD E BLOOD 9 [facility] ADMN SET A7005 YOUR YOUR W/SM VOL 9 [facility] [place] [address] PEREZ TODD UREA 9 [facility] QUANTITAT NIC COLLECTIO 51874 PEREZ TODD N VENOUS 9 CO [facility] BLOOD [facility] VENIPUNCT URE PHRM Q0513 YOUR YOUR DISPENSIN [address] [facility] INHALATIO N RX; PER [address] THORAX 56867 PEREZ TODD 9 CO [facility] T MATERIAL 3D 52538 PEREZ TODD RENDERING 9 CO VA W/[facility] & POSTPROCE SS SUPERVISI ON RADIOLOGI 98291 Favio ALVES EXAM 9 WILLIAN S CHEST 2 RADIOLOGY VIEWS FRONTAL&L ASSOCIATE ALEXI Freeman PSC NEBULIZER E0570 AXEL AXEL WITH 9 HOME MED HOME MED COMPRESSO EQUIP. EQUIP. R [employer] LLC ALBUTEROL J7620 YOUR YOUR TO 2.5 9 PHARMACY PHARMACY [facility] IPRATROPI UM BROM TO 0.5 MG ADMN SET A7003 YOUR YOUR SM VOL 9 PHARMACY PHARMACY [facility] [employer] [facility] PNEUMAT NEBULIZR DISPBL PHRM Q0513 YOUR YOUR DISPENSIN 9 PHARMACY PHARMACY [facility] INHALATIO N RX; PER 30 DAYS NEBULIZER E0570 AXEL BANGRELL WITH 9 HOME MED HOME MED COMPRESSO EQUIP. EQUIP. R [employer] LLC ALBUTEROL J7620 YOUR YOUR TO 2.5 9 PHARMACY PHARMACY [facility] IPRATROPI UM BROM TO 0.5 MG ADMN SET A7003 YOUR YOUR SM VOL 9 [facility] [employer] [facility] PNEUMAT NEBULIZR DISPBL PHRM Q0513 YOUR YOUR DISPENSIN 9 PHARMACY PHARMACY [employer] [facility] INHALATIO N RX; PER 30 DAYS NEBULIZER E0570 AXEL REYNA WITH 9 HOME MED HOME MED COMPRESSO EQUIP. EQUIP. R LLC LLC NEBULIZER E0570 AXEL AXEL WITH 9 HOME MED HOME MED COMPRESSO EQUIP. EQUIP. R [employer] LLC ALBUTEROL J7620 YOUR YOUR TO 2.5 9 PHARMACY PHARMACY [facility] LLC IPRATROPI UM BROM TO 0.5 MG ADMN SET A7003 YOUR YOUR SM VOL 9 PHARMACY PHARMACY [facility] LLC PNEUMAT NEBULIZR DISPBL PHRM Q0513 YOUR YOUR DISPENSIN 9 PHARMACY PHARMACY [employer] LLC INHALATIO N RX; PER 30 DAYS NEBULIZER E0570 AXEL REYNA WITH 9 HOME MED HOME MED COMPRESSO EQUIP. EQUIP. R LLC LLC ADMN SET A7003 YOUR YOUR SM VOL 9 PHARMACY PHARMACY [employer] PNEUMAT NEBULIZR DISPBL ALBUTEROL J7620 YOUR YOUR TO 2.5 9 PHARMACY PHARMACY [facility] LLC IPRATROPI UM BROM TO 0.5 MG PHRM Q0513 YOUR YOUR DISPENSIN 9 PHARMACY PHARMACY [employer] LLC INHALATIO N RX; PER 30 DAYS NEBULIZER E0570 AXEL REYNA WITH 9 HOME MED HOME MED COMPRESSO EQUIP. EQUIP. R LLC LLC ADMN SET A7003 YOUR YOUR SM VOL 9 PHARMACY PHARMACY [employer] LLC PNEUMAT NEBULIZR DISPBL ALBUTEROL J7620 YOUR YOUR TO 2.5 9 PHARMACY PHARMACY [facility] LLC IPRATROPI UM BROM TO 0.5 MG PHRM Q0513 YOUR YOUR DISPENSIN 9 PHARMACY PHARMACY [employer] LLC INHALATIO N RX; PER 30 DAYS NEBULIZER E0570 AXEL REYNA WITH 9 HOME MED HOME MED COMPRESSO EQUIP. EQUIP. R LLC LLC NEBULIZER E0570 AXEL REYNA WITH 9 HOME MED HOME MED COMPRESSO EQUIP. EQUIP. R LLC LLC ADMN SET A7003 AXEL REYNA SM VOL 9 HOME MED HOME MED NONFILTR EQUIP. EQUIP. PNEUMAT [employer] LLC NEBULIZR DISPBL ALBUTEROL J7620 YOUR YOUR TO 2.5 9 PHARMACY PHARMACY [facility] [employer] LLC IPRATROPI UM BROM TO 0.5 MG PHARM G0333 YOUR YOUR DISPEN 9 PHARMACY PHARMACY FEE INHAL LLC LLC RX; [place]IT[place] [address] PEREZ TODD LIPASE 8 CO CO [facility] BASIC 77914 PEREZ TODD METABOLIC 8 CO CO [facility] [place] [address] PEREZ TODD AMYLASE 8 CO CO [facility] ANTIBODY 63182 PEREZ TODD HELICOBAC [address] [facility] PYLORI COLLECTIO 00508 PEREZ TODD N VENOUS 8 CO [facility] BLOOD [facility] VENIPUNCT URE BLOOD 25316 PEREZ TODD COUNT 8 CO CO COMPLETE [facility] AUTO&AUTO DIFRNTL WBC HEPATIC 08651 PEREZ TODD FUNCTION 8 CO CO PANEL [facility] RADEX 58990 PEREZ TODD ABDOMEN 8 CO CO [facility] W/DCBTS&/ ERC VIEWS Encounters Encounter Start End Date Code Location Performer Type Date [facility] SHAYY - 7 7 [facility] 7 7 [facility] - 7 7 [facility] - 7 7 [facility] - 6 6 [facility] - 6 6 [facility] SHAYY - 6 6 [facility] [address] [facility] 6 6 MEDICAL T VISIT SERV 25 FOUNDATIO MINUTES N EMERGENCY 22683 [facility] DEPT 6 6 PREMA VISIT EMERGENCY HIGH PHYS SEVERITY& THREAT [facility] - [address] [facility] SHAYY - 5 5 [facility]IEN [facility] CLINIC, [facility] 4 4 CLINIC HEALTH OFFICE 63493 [facility] 4 4 CLINIC T VISIT 15 MINUTES CRITICAL [facility], ACCESS 3 3 [facility]OS CR[facility]ICAL [facility], ACCESS 3 3 [facility], ACCESS 3 3 [facility] SHAYY - 3 3 [facility] SHAYY - 3 3 [facility] INC T CRITICAL [facility] ACCESS 3 3 [facility] CR[facility]ICAL [facility], ACCESS 2 2 [facility] SHAYY - 2 2 [facility] OUTPATIEN INC T OFFICE 26347 VANESSA MENDEZ JR OUTPATIEN 2 2 MATIAS MATIAS T NEW 30 MINUTES CRITICAL [facility], ACCESS 2 2 [facility] CLINIC, MIN RURAL 1 1 [facility] CLINIC, MIN RURAL 1 1 [facility] CLINIC[facility] MIN RURAL 1 1 [facility] CRITICAL PEREZ ACCESS 1 1 [facility] CLINIC, MIN RURAL 1 1 [facility] CLINIC, MIN RURAL 1 1 [facility] CLINIC, MIN RURAL 1 1 [facility] OFFICE 88133 MIN OUTPATIEN 1 1 CLINIC T VISIT PSC 15 MINUTES CLINIC, MIN RURAL 1 1 [facility] CLINIC, MIN RURAL 0 0 [facility] OFFICE 46497 MIN OUTPATIEN 0 0 CLINIC T VISIT PSC 15 MINUTES OFFICE 93345 MIN OUTPATIEN 0 0 CLINIC T VISIT PSC 15 MINUTES CLINIC, MIN RURAL 0 0 [facility] CLINIC, MIN RURAL 0 0 [facility] OFFICE 41802 MIN OUTPATIEN 0 0 CLINIC T VISIT PSC 25 MINUTES CRITICAL PEREZ ACCESS 0 0 [facility] OFFICE 65624 MIN OUTPATIEN 0 0 CLINIC T VISIT PSC 25 MINUTES CLINIC, MIN RURAL 0 0 [facility] OFFICE 54438 MIN OUTPATIEN 0 0 CLINIC T VISIT PSC 25 MINUTES OFFICE 42916 MIN OUTPATIEN 0 0 CLINIC T VISIT PSC 15 MINUTES CLINIC, MIN RURAL 0 0 [facility] CRITICAL PEREZ ACCESS 0 0 [facility] OFFICE 16432 MIN OUTPATIEN 0 0 CLINIC T VISIT PSC 15 MINUTES CLINIC, MIN RURAL 0 0 [facility] OFFICE 64104 MIN OUTPATIEN 0 0 CLINIC T VISIT PSC 15 MINUTES CLINIC, MIN RURAL 0 0 [facility] CRITICAL PEREZ ACCESS 9 9 [facility] CLINIC, MIN RURAL 9 9 [facility] OFFICE 28270 MIN TAMAREN, OUTPATIEN 9 9 CLINIC KIMBERLY T VISIT PSC 25 MINUTES CLINIC, MIN RURAL 9 9 [facility] OFFICE 11047 MIN OUTPATIEN 9 9 CLINIC T VISIT PSC 15 MINUTES OFFICE 41029 MIN TAMAREN, OUTPATIEN 9 9 CLINIC KIMBERLY T VISIT PSC 15 MINUTES OFFICE 98545 MIN TAMAREN, OUTPATIEN 9 9 CLINIC KIMBERLY T VISIT PSC 15 MINUTES OFFICE 59945 MOIRA MOFFETT 9 9 CLINIC KIMBERLY T VISIT PSC 15 MINUTES OFFICE 06808 MOIRA MOFFETT 8 8 CLINIC KIMBERLY T VISIT PSC 25 MINUTES [facility] 8 8 [facility] OFFICE 22217 MOIRA MOFFETT 8 8 CLINIC KIMBERLY T VISIT PSC 25 MINUTES OFFICE 85210 MOIRA MOFFETT 8 8 CLINIC KIMBERLY T VISIT PSC 15 MINUTES
--- OUTSIDE RECORDS SUMMARY | 2016-11-23 12:24 | External Medical Summary Rpt ---
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 Name Role Phone AHMED ADN, AHMED ADN Unavailable Unavailable ALI AMJ, ALI AMJ Unavailable Unavailable RAHMAN, RAHMAN Unavailable Unavailable [facility] Unavailable Unavailable [facility], [facility], [facility] Unavailable Unavailable [facility], Unavailable Unavailable [facility], Unavailable Unavailable [facility], Unavailable Unavailable [facility] LAITH DOWELL, LAITH Unavailable Unavailable [facility], Unavailable Unavailable [facility] DONAHUE LEONCIO, DONAHUE LEONCIO Unavailable Unavailable DONAHUE LEONCIO, DONAHUE LEONCIO Unavailable Unavailable VANESSA JR MATIAS, VANSESA Unavailable Unavailable JR MATIAS VANESSA JR MATIAS, [...] KLEVER WILLIAN FOLEY, Unavailable Unavailable WILLIAN FOLEY [facility], Unavailable Unavailable [facility], Unavailable Unavailable [facility] Unavailable Unavailable INC, [facility] OCHOA AUD, OCHOA AUD Unavailable Unavailable [facility] Unavailable Unavailable [facility], [facility] Unavailable [facility] Unavailable Unavailable [facility]INGS, [facility] ZULETA, ZULETA Unavailable Unavailable [facility] Unavailable Unavailable ASSOCIAT, [facility] TOBIN, TOBIN Unavailable Unavailable [facility] Unavailable Unavailable CO [facility], [facility], Unavailable Unavailable [facility] LEONCIO DONAHUE MD Unavailable Unavailable CONSULTING SRV, LEONCIO DONAHUE MD CONSULTING SRV SCALF, SCALF Unavailable Unavailable SCALF KLEVER, SCALF KLEVER Unavailable Unavailable LAURA, LAURA Unavailable Unavailable [facility], Unavailable Unavailable [facility] Unavailable Unavailable [facility], 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 INC R0600 DYSPNEA 04-30-2016 [facility] UNSPECIFIED [facility] INC R0602 SHORTNESS 04-30-2016 [facility] OF BREATH PHYSICIANS GROUP R9439 ABNORMAL 04-30-2016 [facility] RESULT OT PHYSICIANS CARDIOVASCU GROUP LR FUNCTION STUDY I10 ESSENTIAL 04-24-2016 [facility] [place] HYPERTENSIO IMAGING ASS N I209 ANGINA 04-24-2016 [facility] PECTORIS [facility] UNSPECIFIED INC I739 PERIPHERAL 04-24-2016 [place] VASCULAR [facility]ICAL DISEASE IMAGING ASS UNSPECIFIED R0989 OTH SPEC SX 04-24-2016 [place] & SIGNS MEDICAL INVLV THE IMAGING ASS CIRC & RESP SYS Z720 TOBACCO USE 04-24-2016 [facility] I208 OTHER FORMS 04-15-2016 [facility] OF ANGINA PHYSICIANS PECTORIS GROUP I340 NONRHEUMATI 04-15-2016 [facility] INSUFFICIEN CY I517 CARDIOMEGAL 04-15-2016 [facility] J440 COPD WITH 04-08-2016 [facility] RESPIRATORY INFECTION R079 CHEST PAIN 04-08-2016 [place] [facility]PEC[facility] SERV [facility] R4182 ALTERED 02-09-2016 [facility] [place] [facility] STATUS UNSPECIFIED V36112 OTHER LONG 01-14-2016 [facility] TERM [facility] CURRENT HOLDINGS DR[facility] THERAPY I5043 ACUTE ON 06-11-2015 LEONCIO DONAHUE CHRONIC COMB CONSULTING SYSTOLIC & SRV DIASTOLIC CHF D696 THROMBOCYTO 06-10-2015 [facility] UNSPECIF[facility] SERVI J111 FLU D/T 06-10-2015 [facility] UNIDENTIFIE N PHYSICIAN D FLU VIRUS SERVI W/OTH RESP MANIF J441 CHRONIC 06-10-2015 [facility] OBSTRUCTIVE N PHYSICIAN PULMONARY SERVI DZ W/EXACERBAT ION N179 ACUTE 06-10-2015 [facility] KIDNEY N PHYSICIAN FAILURE SERVI UNSPECIFIED K87670 DECREASED 06-09-2015 [facility] BLOOD [facility] CELL COUNT [facility] UNSPECIFIED E785 HYPERLIPIDE 06-09-2015 [facility] UNSPECIFIED HOSPITAL 496 CHRONIC 12-24-2014 [facility] NEC 2720 PURE 11-09-2014 LEONCIO DONAHUE HYPERCHOLES TEROLEMIA CONSULTING SRV 4019 UNSPECIFIED 11-09-2014 LEONCIO DONAHUE ESSENTIAL HYPERTENSIO CONSULTING N SRV 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 DONAHUE ATHEROSCLER OSIS [place] CONSULTING CORONARY SRV ARTERY 01461 OTHER 09-18-2014 [place] NONSPECIFIC MEDICAL ABNORMAL IMAGING ASS FINDING OF LUNG FIELD 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 UNSPECIFIED 3899 UNSPECIFIED 04-30-2014 [facility] LOSS 5589 OTH&UNSPEC 05-03-2013 [facility] NONINFECTIO CLINIC US GASTROENTER ITIS&COLITI S 5781 BLOOD IN 05-03-2013 [facility] STOOL [facility]INIC 41136 ABDOMINAL 05-03-2013 [facility] PAIN, CLINIC UNSPECIFIED SITE 7823 EDEMA 10-11-2012 [facility] LEONCIO 7851 PALPITATION 09-01-2012 [facility] LEONCIO S 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 [facility] UNSPECIFIED HOS 4293 CARDIOMEGAL 08-31-2012 [facility] Y CORPORATE PL[facility]NER [facility] 4299 UNSPECIFIED 08-31-2012 [facility] HEART CORPORATE PLANNER DISEASE [facility] 31895 OTHER 08-02-2012 [facility] DISEASES OF [place] KATHLEEN LUNG NOT ELSEWHERE CLASSIFIED 4928 OTHER 06-09-2012 [facility] EMPHYSEMA [facility] INC 66714 SHORTNESS 05-05-2012 [facility], OF BREATH [facility]PORATE [facility] [place] [facility] 7862 COUGH 02-22-2012 [facility] [place] [facility] 40200 OBSTRUCTIVE 02-08-2012 BELINDA CHRONIC EDWARD BRONCHITIS WITH EXACERBATIO N 605 REDUNDANT 08-27-2011 [facility] PREPUCE AND MEM [facility] PHIMOSIS INC V5866 LONG-TERM 08-27-2011 [facility] USE OF MEM [facility]IRIN INC 10823 UNSPECIFIED 08-20-2011 VANESSA HOLLAND URINARY MATIAS INCONTINENC E 68448 ESOPHAGEAL 08-18-2011 [facility] LEONCIO REFLUX 70277 ABDOMINAL 08-18-2011 [facility] LEONCIO PAIN, EPIGASTRIC 5780 HEMATEMESIS 08-14-2011 TAMAREN VIKRAM 80437 OTHER 08-13-2011 [facility] DISEASES OF RADIOLOGY SPLEEN ASSOCIAT 43033 DIVERTICULO 08-13-[facility] OF RADI[facility] COLON ASSOCIAT 5738 OTHER 08-13-[facility] SPECIFIED RADIOLOGY DISORDERS ASSOCIAT OF LIVER 63494 OTHER 08-13-[facility] SPECIFIED RADIOLOGY DISORDERS ASSOCIAT OF BLADDER 7245 UNSPECIFIED 08-13-2011 AHMED ADN BACKACHE 39911 CHEST PAIN 08-13-2011 AHMED ADN UNSPECIFIED 486 PNEUMONIA, 07-25-2011 TAMAREN VIKRAM ORGANISM UNSPECIFIED 85572 OTHER 07-23-2011 [facility] PAIN 83939 CHILLS 07-23-2011 [facility] WITHOUT [facility]OSPITAL FEVER 82924 CLOSED 06-25-2011 [facility], FRACTURE OF [facility] RIB, [facility] UNSPECIFIED HOS 00487 CLOSED 06-25-2011 [facility] FRACTURE OF RADIOLOGY ONE RIB ASSOCIAT E8889 UNSPECIFIED 06-25-2011 [facility] ASSOCIAT 97171 GEN 04-22-2011 BELINDA OSTEOARTHRO EDWARD SIS INVOLVING MULTIPLE SITES 4619 ACUTE 02-23-2011 [facility] SINUSITIS, CLINIC PSC UNSPECIFIED 7080 ALLERGIC 01-30-2011 [facility] URTICARIA [facility]INIC P[facility] 9951 ANGIONEUROT 04-16-2010 MIN IC EDEMA CLINIC PSC NOT ELSEWHERE CLASSIFIED 4139 OTHER AND 01-13-2010 [facility] UNSPECIFIED CLINIC PSC ANGINA PECTORIS 31969 OSTEOARTHRO 10-24-2009 MIN S UNSPEC CLINIC PSC WHETHER GEN/LOC UNSPEC SITE 74244 COR 05-29-2009 [facility]OSL[facility] UNSPEC ASSOCIATES TYPE VESSEL PSC [place]/JESSICA T 7931 NONSPEC 05-29-2009 [facility] OT EXAM BODY STRUCT LUNG FIELD V1582 PERS HX 05-29-2009 [facility] TOBACCO USE HOSPITAL PRESENTING [facility] 7863 HEMOPTYSIS 12-05-2008 [facility] HOSPITAL 58553 OSTEOARTHRO 07-26-2008 MIN SIS UNSPEC CLINIC PSC WHETHER GEN/LOC LOWER LEG 490 BRONCHITIS 04-27-2008 MIN NOT CLINIC PSC SPECIFIED ACUTE OR CHRONIC 31961 OTHER 04-27-2008 [facility] [place] [address] ABDOMINAL 01-17-2008 [facility] PAIN RIGHT HOSPITAL UPPER QUADRANT V4589 OTHER 01-17-2008 [facility] L STATUS OTHER V5869 LONG-TERM 01-17-2008 [facility] (CURRENT) HOSPITAL USE OF OTHER MEDICATIONS 6918 OTHER 08-11-2007 [facility] PSC DERMATITIS AND RELATED CONDITIONS [...] 80 11 11 FA JA E 1 IN NE 20 LY T [address] UG CA PS UL E AL 24 10 10 0 24 24 SO 38 TA Ac LE 38 -0 -0 .0 PE 62 MA ti RG 50 7- 7- 00 RS 80 RE ve Y 46 20 20 N 25 26 11 11 FA JA 2 IN NE MG LY T CA DR PS UG UL E 00 10 10 0 30 30 SO 38 TA Ac 90 -0 -0 .0 PE 62 MA ti 45 7- 7- 00 RS 81 RE ve 82 20 20 N 94 11 11 FA JA 6 IN NE LY T DR UG CL 00 09 09 2 60 30 SO 38 TA Ac ON 22 -2 -2 .0 PE 50 MA ti AZ 83 3- 3- 00 RS 53 RE ve EP 00 20 20 N AM 35 11 11 FA JA 0 IN NE 0. LY T [address] UG TA BL ET VA 50 08 08 0 12 3 SO 38 TA Ac OM 38 -0 -0 0. PE 03 MA ti ET 30 4- 4- 00 RS 83 RE ve [place] 80 20 20 0 N ZI 41 11 11 FA JA NE 6 IN NE -C LY T OD EI DR NE UG SY RU P CL 00 07 07 2 30 30 SO 37 TA Ac ON 22 -0 -0 .0 PE 77 MA ti AZ 83 5- 5- 00 RS 43 RE ve EP 00 20 20 N AM 35 11 11 FA JA 0 IN NE 0. LY T [address] UG TA BL ET 00 07 07 0 24 4 SO 37 TA Ac 12 -0 -0 0. PE 77 MA ti 10 5- 5- 00 RS 60 RE ve 63 20 20 0 N 81 11 11 FA JA 6 IN NE LY T DR UG VA 50 06 06 0 24 6 SO 37 TA Ac OM 38 -0 -0 0. PE 51 MA ti ET 30 2- 2- 00 RS 85 RE ve [place] 80 20 20 0 N ZI 41 11 11 FA JA NE 6 IN NE -C LY T OD EI DR [...] AN TA Y BL IN ET C VA 00 09 09 24 6 HO 10 [...] YOUR YOUR VOL 7 PHARMACY PHARMACY NONFILTR [employer] [facility] PNEUMAT NEBULIZR DISPBL ADMN SET A7003 YOUR YOUR VOL 7 PHARMACY PHARMACY NONFIL [employer] [facility] PNEUMAT NEBULIZR DISPBL IPRATROPI J7644 YOUR YOUR UM 7 PHARMACY PHARMACY [facility] [employer] [facility] INHAL NON-CP U DOSE PER MG PRESSURIZ 51192 [facility] ED/NONPRE 7 [facility] SSURIZED INC INC INHALATIO N TREATMENT BRNCDILAT 83622 [facility] RSPSE 7 [facility] SPMTRY INC INC PRE&POST- BRNCDILAT ADMN GAS 81910 [facility] DILUT/WAS 7 [facility] HOUT LUNG INC INC VOL W/[place] DISTRIB [place] [address] [facility] DIFFUSING 7 [facility] CAPACITY INC INC NONINVASI 76491 [facility] L[facility] VE 7 [facility] EAR/PULSE INC INC OXIMETRY MULTIPLE DETER ADMN SET A7003 YOUR YOUR VOL 7 PHARMACY PHARMACY NONFILTR [employer] PNEUMAT NEBULIZR DISPBL IPRATROPI J7644 YOUR YOUR UM 7 PHARMACY PHARMACY [facility] [employer] INHAL NON-CP U DOSE PER MG NEBULIZER E0570 AXEL REYNA WITH 7 HOME HOME [facility] R EQUIPME EQUIPME ADMN SET A7003 YOUR YOUR VOL 7 PHARMACY PHARMACY [employer] PNEUMAT NEBULIZR DISPBL IPRATROPI J7644 YOUR YOUR UM 7 PHARMACY PHARMACY [facility] INHAL NON-CP U DOSE PER MG PHRM Q0513 YOUR YOUR DISPENSIN 7 PHARMACY PHARMACY G FEE [facility] INHALATIO N RX; PER 30 DAYS ECG 09967 [facility] LUC[facility] ROUTINE 7 [facility] ECG INC INC W/LEAST 12 LDS TRCG ONLY W/O I&R NEBULIZER E0570 AXEL REYNA WITH 7 [facility] R EQUIPME EQUIPME LOCM Q9967 [facility] LUCAS [phone] 7 [facility] MG/ML INC INC IODINE CONCENTRA TION PER ML BASIC 05599 [facility] METABOLIC 7 [facility] PANEL INC INC CALCIUM TOTAL GASES 39885 [facility] BLOOD O2 7 [facility] SATURATIO INC INC N ONLY DIRECT JOSÉ INTRDUCR/ C1894 [facility] LUC[facility] SHEATH 7 [facility] NOT GUID INC INC INTRACARD EP NON-LASR R & L HRT 20586 [facility] CATH 7 PHYSICIAN WINJX HRT S GROUP ART& L VENTR IMG GUIDE C1769 [facility] LUCAS WIRE 7 [facility] INC INC CATHETER C1725 [facility] LUC[facility] TRANSLUMI 7 [facility] NAL INC INC ANGIOPLAS TY NON-LASER INJECTION J1644 [facility] HEPARIN 7 [facility] SODIUM INC INC PER 1000 UNITS BLOOD 12727 [facility] LUC[facility] COUNT 7 [facility] COMPLETE INC INC AUTO&AUTO DIFRNTL WBC ECG 62768 [facility] LUCAS ROUTINE 7 [facility] ECG INC INC W/LEAST 12 LDS TRCG ONLY W/O I&R NON-INVAS 28255 [place] RAHMAN NIC 6 MEDICAL PHYSIOLOG IMAGING IC STUDY ASS EXTREMITY 3 LEVLS DUPLEX 69024 [facility] SCAN 6 MEDICAL EXTRACRAN IMAGING IAL ART ASS COMPL BI STUDY TECHNETIU A9500 [facility] M TC-99M 6 [facility] SESTAMIBI INC INC DX PER STUDY DOSE CV STRS 15551 [facility] TST 6 [facility] XERS&/OR INC INC RX CONT ECG TRCG ONLY MYOCARDIA 26318 [facility] L SPECT 6 [facility] MULTIPLE INC INC STUDIES ECHO 80285 [facility] TTHRC R-T 6 [facility] 2D INC INC W/WOM-MOD E COMPL SPEC&COLR D ECHO 05424 [place] [facility] TRANSTHOR 6 MEDICAL C R-T 2D SERV W/WO FOUNDATIO M-MODE N REC F-UP/LMTD INJECTION J2785 [facility] LUCAS 6 [facility] REGADENOS INC INC ON 0.1 MG NEBULIZER E0570 AXEL REYNA WITH 6 HOME [facility]ICAL R EQUIPME EQUIPME ECG 18181 [facility] LUC[facility] ROUTINE 6 [facility] ECG INC INC W/LEAST 12 LDS TRCG ONLY W/O I&R IPRATROPI J7644 YOUR YOUR UM 6 PHARMACY PHARMACY [facility] [employer] INHAL NON-CP U DOSE PER MG PHRM Q0513 YOUR YOUR DISPENSIN 6 PHARMACY PHARMACY G FEE [employer] INHALATIO N RX; PER 30 DAYS ADMN SET A7003 YOUR YOUR SM VOL 6 PHARMACY PHARMACY [employer] [place] [address] [facility] [place] SEBASTIAN HEAD/BRAI 6 RADIOLOGY N W/O CONTRAST MATERIAL RADIOLOGI 20647 [facility] [place] SCALF C EXAM 6 RADIOLOGY CHEST 2 VIEWS FRONTAL&L ATERAL IPRATROPI J7644 YOUR YOUR UM 6 PHARMACY PHARMACY [facility] [employer] INHAL NON-CP U DOSE PER MG PHRM Q0513 YOUR YOUR DISPENSIN 6 PHARMACY PHARMACY G FEE [employer] INHALATIO N RX; PER 30 DAYS ADMN SET A7003 YOUR YOUR SM VOL 6 PHARMACY PHARMACY [employer] LLC PNEUMAT NEBULIZR DISPBL DRUG TST G0483 [...] PHARMACY PHARMACY NONFILTR LLC LLC PNEUMAT NEBULIZR [facility] [address] [facility] 6 PREMA DAY PHYSICIAN MANAGEMEN SERVI T > 30 MIN SBSQ 41146 [place] [address] PREMA CARE/DAY PHYSICIAN 25 SERVI MINUTES SBSQ 80253 [place] [address] PREMA CARE/DAY PHYSICIAN 25 SERVI MINUTES ECHO 62072 LEONCIO DONAHUE DONAHUE LEONCIO TTHRC R-T 6 2D CONSULTIN W/WOM-MOD G SRV E COMPL SPEC&COLR D SBSQ 55680 [place] [address] PREMA CARE/DAY PHYSICIAN 35 SERVI MINUTES INITIAL 44338 [facility] 6 [facility] C[facility]/DAY PHYSICIAN 70 SERVI MINUTES RADIOLOGI 35351 [facility] [place] SCALF KLEVER C EXAM 6 [...] INHAL NON-CP U DOSE PER MG ECG 20539 LEONCIO DONAHUE DONAHUE LEONCIO ROUTINE 5 MD [...] NON-CP U DOSE PER MG CT THORAX 74245 [facility] MEDICAL ASHWINI CONTRAST IMAGING MATERIAL ASS IPRATROPI J7644 YOUR YOUR 5 PHARMACY PHARMACY [facility] LLC LLC INHAL NON-CP U DOSE PER MG PHRM Q0513 YOUR YOUR DISPENSIN 5 PHARMACY PHARMACY G FEE LLC LLC INHALATIO N RX; PER 30 DAYS COMPRE 08037 SPEACH SPEACH AUDIOMETR 5 ALB ALB Y THRESHOLD EVAL SP RECOGNIJ COLLECTIO 48073 MIN COPELAND N VENOUS 5 CLINIC CLINIC [...] INHAL NON-CP U DOSE PER MG DUP-SCAN 16058 DONAHUE LEONCIO DONAHUE LEONCIO XTR VEINS 3 [...] INHALATIO N RX; PER 30 DAYS ECHO 47744 DONAHUE LEONCIO DONAHUE LEONCIO TTHRC R-T 3 2D W/WOM-MOD E COMPL SPEC&COLR D ECHO 58873 [employer], TTHRC R-T 3 CORPORATE PLANNER CORPORATE PLANNER 2D [facility] W/WOM-MOD CO HOS CO HOS E COMPL SPEC&COLR D ECG 07914 DONAHUE LEONCIO DONAHUE LEONCIO ROUTINE 3 ECG W/LEAST 12 LDS I&R ONLY ECG 48937 [employer], ROUTINE 3 CORPORATE PLANNER CORPORATE PLANNER ECG [facility] W/LEAST CO HOS CO HOS 12 LDS TRCG ONLY W/O I&R IPRATROPI J7644 YOUR YOUR 3 PHARMACY PHARMACY [facility] LLC LLC INHAL NON-CP U DOSE PER MG PHRM Q0513 YOUR YOUR DISPENSIN 3 PHARMACY PHARMACY G FEE LLC LLC INHALATIO N RX; PER 30 DAYS RADIOLOGI 11494 FABIAN PERALTA C EXAM 3 EIDER KATHLEEN EIDER KATHLEEN CHEST 2 VIEWS FRONTAL&L ATERAL BLOOD 10995 [employer], COUNT 3 CORPORATE PLANNER CORPORATE PLANNER COMPLETE [facility] TODD AUTO&AUTO CO HOS CO HOS DIFRNTL WBC COMPREHEN 46042 [employer], SIVE 3 CORPORATE PLANNER CORPORATE PLANNER METABOLIC [facility] TODD PANEL CO HOS CO HOS IPRATROPI J7644 YOUR YOUR 3 PHARMACY PHARMACY [facility] LLC LLC INHAL NON-CP U DOSE PER MG PHRM Q0513 YOUR YOUR DISPENSIN 3 PHARMACY PHARMACY G FEE LLC LLC INHALATIO N RX; PER 30 DAYS 3D 37482 [facility] RENDERING 3 [facility] INC INC W/INTERP& POSTPROC DIFF WORK STATION CT THORAX 08455 CANDELARIA GAONA W/O 3 ASHWINI ASHWINI CONTRAST MATERIAL NONINVASI 27929 [facility] VE 3 [facility] EAR/PULSE INC INC OXIMETRY SINGLE DETER SPMTRY 86591 [facility] W/VC 3 [facility] EXPIRATOR INC INC Y SHAWNA W/WO MXML VOL VNTJ RADIOLOGI 44682 LAITH OZUNA C EXAM 3 MAGALYS MAGALYS CHEST 2 VIEWS FRONTAL&L ATERAL ADMN SET A7003 YOUR YOUR SM VOL 2 PHARMACY PHARMACY [facility] PNEUMAT NEBULIZR DISPBL ALBUTEROL J7620 YOUR YOUR TO 2.5 2 PHARMACY PHARMACY MG IPRATROPI UM BROM TO 0.5 MG RADIOLOGI 31224 [facility], [facility], C EXAM 2 CORPORATE PLANNER CORPORATE PLANNER CHEST 2 [facility] VIEWS CO HOS CO HOS FRONTAL&L ATERAL INJECTION J0696 BELINDA TREVINO 2 [facility] CEFTRIAXO NE SODIUM PER 250 MG INJECTION J1030 BELINDA TREVINO 2 [facility] METHYLPRE DNISOLONE ACETATE 40 MG ALBUTEROL J7620 YOUR YOUR TO 2.5 2 PHARMACY PHARMACY [employer] [facility] IPRATROPI UM BROM TO 0.5 MG ADMN SET A7003 YOUR YOUR SM VOL 2 PHARMACY PHARMACY [facility] PNEUMAT NEBULIZR DISPBL ADMN SET A7003 YOUR YOUR SM VOL 2 PHARMACY PHARMACY [facility] PNEUMAT NEBULIZR DISPBL ALBUTEROL J7620 YOUR YOUR TO 2.5 2 PHARMACY PHARMACY [employer] [facility] IPRATROPI UM BROM TO 0.5 MG ALBUTEROL J7620 YOUR YOUR TO 2.5 2 PHARMACY PHARMACY [employer] [facility] IPRATROPI UM BROM TO 0.5 MG ADMN SET A7003 YOUR YOUR SM VOL 2 PHARMACY PHARMACY [facility] PNEUMAT NEBULIZR DISPBL ALBUTEROL J7620 YOUR YOUR TO 2.5 2 PHARMACY PHARMACY [employer] [facility] IPRATROPI UM BROM TO 0.5 MG ADMN SET A7003 YOUR YOUR SM VOL 2 PHARMACY PHARMACY [employer] [facility] PNEUMAT NEBULIZR DISPBL ADMN SET A7003 YOUR YOUR SM VOL 2 PHARMACY PHARMACY [employer] [facility] PNEUMAT NEBULIZR DISPBL ALBUTEROL J7620 YOUR YOUR TO 2.5 2 PHARMACY PHARMACY [employer] [facility] IPRATROPI [place] 0[place]5 [place] [address] SH[facility] LUCAS INFUSION 2 [facility] THERAPY/P INC INC ROPHYLAXI S /DX 1ST TO 1 HR THERAPEUT 53383 [facility] LUCAS IC 2 [facility] INJECTION [place] [address] [facility] LUCAS INFUSION 2 [facility] THERAPY INC INC PROPHYLAX IS/DX EA HOUR CIRCUMCIS 14952 [facility] LUCAS ION AGE 2 [facility] >28 DAYS INC INC ECG 39835 DONAHUE LEONCIO DONAHUE LEONCIO ROUTINE 2 ECG W/LEAST 12 LDS I&R ONLY OBSERVATI 50560 LAUREN AGUILAR ON CARE 2 Apr DISCHARGE MANAGEMEN T RADEX ABD 13744 [facility] COMPL 2 EIDER KATHLEEN AQT ABD RADIOLOGY W/S/E/D ASSOCIAT V[place] [address] [place] [address] [facility] ABDOMEN & 2 MAGALYS PELVIS RADIOLOGY W/O ASSOCIAT CONTRST 1/> BODY [facility] 01992 LAUREN AGUILAR DISCHARGE 2 Apr DAY MANAGEMEN T 30 MIN/< RADIOLOGI 48890 [facility] C 2 KLEVER EXAMINATI RADIOLOGY ON CHEST ASSOCIAT SINGLE VIEW FRONTAL RADEX 53694 [facility] RIBS UNI 2 EIDER KATHLEEN W/POSTERO RADIOLOGY ANT CH ASSOCIAT MINIMUM 3 VIEWS RADIOLOGI 34522 [facility] C EXAM 2 EIDER KATHLEEN CHEST 2 RADIOLOGY VIEWS ASSOCIAT FRONTAL&L ATERAL ALBUTEROL J7620 YOUR YOUR TO 2.5 2 PHARMACY PHARMACY [employer] [facility] IPRATROPI UM BROM TO 0.5 MG ADMN SET A7003 YOUR YOUR SM VOL 2 PHARMACY PHARMACY [employer] [facility] PNEUMAT NEBULIZR DISPBL INJECTION J0696 BELINDA TREVINO 2 [facility] CEFTRIAXO NE SODIUM PER 250 MG INJECTION J1030 BELINDA TREVINO 2 [facility] METHYLPRE DNISOLONE ACETATE 40 MG ALBUTEROL J7620 YOUR YOUR TO 2.5 2 PHARMACY PHARMACY [employer] [facility] IPRATROPI UM BROM TO 0.5 MG ADMN SET A7003 YOUR YOUR SM VOL 2 PHARMACY PHARMACY [facility] PNEUMAT NEBULIZR DISPBL ADMN SET A7003 YOUR YOUR SM VOL 1 PHARMACY PHARMACY [facility] PNEUMAT NEBULIZR DISPBL ALBUTEROL J7620 YOUR YOUR TO 2.5 1 PHARMACY PHARMACY [facility] IPRATROPI UM BROM TO 0.5 MG INJECTION J1100 EBLINDA TREVINO 1 [facility] DEXAMETHO SONE SODIUM PHOSPHATE 1 MG INJECTION J1030 BELINDA TREVINO 1 [facility] METHYLPRE DNISOLONE ACETATE 40 MG INJECTION J0696 BELINDA TREVINO 1 [facility] CEFTRIAXO NE SODIUM PER 250 MG INJECTION J1100 BELINDA TREVINO 1 [facility] DEXAMETHO SONE SODIUM PHOSPHATE 1 MG ALBUTEROL J7620 YOUR YOUR TO 2.5 1 PHARMACY PHARMACY [employer] [facility] IPRATROPI UM BROM TO 0.5 MG ADMN SET [id number] YOUR YOUR SM VOL 1 PHARMACY PHARMACY [facility] PNEUMAT NEBULIZR DISPBL ADMN SET A7003 YOUR YOUR SM VOL 1 PHARMACY PHARMACY [facility] PNEUMAT NEBULIZR DISPBL ALBUTEROL J7620 YOUR YOUR TO 2.5 1 PHARMACY PHARMACY [employer] [facility] IPRATROPI UM BROM TO 0.5 MG PHRM Q0513 YOUR YOUR DISPENSIN 1 PHARMACY PHARMACY [facility] INHALATIO N RX; PER 30 DAYS INJECTION J1100 MIN TREVINO 1 [facility] DEXAMETHO PSC SONE SODIUM PHOSPHATE 1 MG RADIOLOGI [id number] PEREZ Stahl EXAM 1 [place] [facility] VIE[facility] FRONTAL&L ATERAL INJECTION J1100 MIN TREVINO 1 [facility] DEXAMETHO PSC SONE SODIUM PHOSPHATE 1 MG ALBUTEROL J7620 YOUR YOUR TO 2.5 1 PHARMACY PHARMACY [employer] [facility] IPRATROPI UM BROM TO 0.5 MG ADMN SET [id number] YOUR YOUR SM VOL 1 [facility]UL[facility] DISPBL PHRM Q0513 YOUR YOUR DISPENSIN 1 PHARMACY PHARMACY [employer] [facility] INHALATIO N RX; PER 30 DAYS PHRM Q0513 YOUR YOUR DISPENSIN 1 PHARMACY PHARMACY [employer] [facility] INHALATIO N RX; PER 30 DAYS ALBUTEROL J7620 YOUR YOUR TO 2.5 1 PHARMACY PHARMACY [employer] [facility] IPRATROPI UM BROM TO 0.5 MG ADMN SET [id number] YOUR YOUR SM VOL 1 [facility] PNEUMAT NEBULIZR DISPBL ADMN SET A7003 YOUR YOUR SM VOL 0 PHARMACY PHARMACY [facility] PNEUMAT NEBULIZR DISPBL ALBUTEROL J7620 YOUR YOUR TO 2.5 0 PHARMACY PHARMACY [employer] [facility] IPRATROPI UM BROM TO 0.5 MG PHRM Q0513 YOUR YOUR DISPENSIN 0 PHARMACY PHARMACY [employer] [facility] INHALATIO N RX; PER 30 DAYS INJECTION J1030 MIN TAMAREN 0 CLINIC [facility] METHYLPRE PSC DNISOLONE ACETATE 40 MG INJECTION J1100 MIN TAMAREN 0 CLINIC [facility] DEXAMETHO PSC SONE SODIUM PHOSPHATE 1 MG ADMN SET [id number] YOUR YOUR SM VOL 0 PHARMACY PHARMACY [employer] [facility] PNEUMAT NEBULIZR DISPBL PHRM Q0513 YOUR YOUR DISPENSIN 0 PHARMACY PHARMACY [employer] [facility] INHALATIO N RX; PER 30 DAYS ALBUTEROL J7620 YOUR YOUR TO 2.5 0 PHARMACY PHARMACY [employer] [facility] IPRATROPI UM BROM TO 0.5 MG PHRM Q0513 YOUR YOUR DISPENSIN 0 PHARMACY PHARMACY [employer] [facility] INHALATIO N RX; PER 30 DAYS ALBUTEROL [id number] YOUR YOUR TO 2.5 0 PHARMACY PHARMACY MG & LLC LLC IPRATROPI UM BROM TO 0.5 MG ADMN SET A7003 YOUR YOUR SM VOL 0 PHARMACY PHARMACY NONFILTR LLC LLC PNEUMAT NEBULIZR DISPBL CREATINE 37984 PEREZ TODD KINASE 0 [facility] MYOGLOBIN 38268 [facility] BASIC 92778 PEREZ TODD METABOLIC 0 CO [facility] CALCIUM TOTAL CREATINE 64807 PEREZ TODD KINASE MB 0 [facility] ONLY COLLECTIO 46500 PEREZ TODD N VENOUS 0 CO CO BLOOD [facility] VENIPUNCT URE BLOOD 94207 PEREZ TODD COUNT 0 CO CO SMEAR [facility] MCRSCP W/MNL DIFRNTL WBC COUNT LIPID 55815 PEREZ TODD PANEL 0 CO CO [facility] [place] [address] PEREZ TODD TROPONIN 0 CO CO QUANTITAT [facility] NIC BLOOD 47729 PEREZ TODD COUNT 0 CO CO COMPLETE [facility] AUTO&AUTO DIFRNTL WBC PHRM Q0513 YOUR YOUR DISPENSIN 0 PHARMACY PHARMACY G FEE INHALATIO N RX; PER 30 DAYS ADMN SET A7003 YOUR YOUR SM VOL 0 PHARMACY PHARMACY NONFILTR PNEUMAT NEBULIZR DISPBL ALBUTEROL J7620 YOUR YOUR TO 2.5 0 PHARMACY PHARMACY MG & IPRATROPI UM BROM TO 0.5 MG COLLECTIO 25168 PEREZ TODD N VENOUS 0 CO CO BLOOD [facility] VENIPUNCT URE CT THORAX 02059 PEREZ TODD 0 CO CO W/[facility] MATERIAL 3D 69056 PEREZ TODD RENDERING 0 CO CO W/[facility] & POSTPROCE SS SUPERVISI ON ALBUTEROL [...] HOME MED COMPRESSO EQUIP. EQUIP. R LLC [facility] ADMN SET A7003 AXEL REYNA VOL 9 HOME MED HOME MED NONFILTR EQUIP. EQUIP. PNEUMAT [facility] NEBULIZR DISPBL ALBUTEROL J7620 YOUR YOUR TO 2.5 9 PHARMACY PHARMACY & Mems-ID [facility] IPRATROPI UM BROM TO 0.5 MG PHRM Q0513 YOUR YOUR DISPENSIN 9 PHARMACY PHARMACY [facility] Mems-ID [facility] INHALATIO N RX; PER 30 DAYS NEBULIZER E0570 AXEL REYNA WITH 9 HOME MED HOME MED COMPRESSO EQUIP. EQUIP. R Mems-ID [facility] ALBUTEROL [id number] YOUR YOUR TO 2.5 9 PHARMACY PHARMACY [employer] [facility] IPRATROPI UM BROM TO 0.5 MG PHRM Q0513 YOUR YOUR DISPENSIN 9 PHARMACY PHARMACY [facility] [employer] [facility] INHALATIO N RX; PER 30 DAYS NEBULIZER E0570 AXEL REYNA WITH 9 HOME MED HOME MED COMPRESSO EQUIP. EQUIP. R [employer] [facility] ALBUTEROL [id number] YOUR YOUR TO 2.5 9 PHARMACY PHARMACY MG & IPRATROPI UM BROM TO 0.5 MG PHRM Q0513 YOUR YOUR DISPENSIN 9 PHARMACY PHARMACY [facility] INHALATIO N RX; PER 30 DAYS NEBULIZER E0570 AXEL ERYNA WITH 9 HOME MED HOME MED COMPRESSO EQUIP. EQUIP. R [employer] [facility] ALBUTEROL [id number] YOUR YOUR TO 2.5 9 PHARMACY PHARMACY & [employer]ems[employer] [facility] IPRATROPI UM BROM TO 0.5 MG CREATININ 37845 PEREZ TODD E BLOOD 9 [facility] ADMN SET A7005 YOUR YOUR W/SM VOL 9 PHARMACY [facility] [place] [address] PEREZ TODD UREA 9 [facility] QUANTITAT NIC COLLECTIO 41917 PEREZ TODD N VENOUS 9 [place] BLOOD [facility] VENIPUNCT URE PHRM Q0513 YOUR YOUR DISPENSIN 9 PHARMACY PHARMACY [facility] INHALATIO N RX; PER [address] THORAX 60168 PEREZ TODD 9 CO CO W/[facility] T MATERIAL 3D 87962 PEREZ TODD RENDERING 9 CO [place] W/[facility] & POSTPROCE SS SUPERVISI ON RADIOLOGI 01386 Favio ALVES EXAM 9 WILLIAN S CHEST 2 RADIOLOGY VIEWS FRONTAL&L ASSOCIATE ALEXI Freeman PSC NEBULIZER E0570 AXEL AXEL WITH 9 HOME MED HOME MED COMPRESSO EQUIP. EQUIP. R [employer] LLC ALBUTEROL [id number] YOUR YOUR TO 2.5 9 PHARMACY PHARMACY [employer] [facility] IPRATROPI UM BROM TO 0.5 MG ADMN SET A7003 YOUR YOUR SM VOL 9 PHARMACY PHARMACY [facility] [employer]ems[facility]ID [facility] PNEUMAT NEBULIZR DISPBL PHRM Q0513 YOUR YOUR DISPENSIN 9 PHARMACY PHARMACY [employer] [facility] INHALATIO N RX; PER 30 DAYS NEBULIZER E0570 AXEL BANGRELL WITH 9 HOME MED HOME MED COMPRESSO EQUIP. EQUIP. R [employer] LLC ALBUTEROL [id number] YOUR YOUR TO 2.5 9 PHARMACY PHARMACY [employer] [facility] IPRATROPI UM BROM TO 0.5 MG ADMN SET A7003 YOUR YOUR SM VOL 9 PHARMACY PHARMACY [facility] PNEUMAT NEBULIZR DISPBL PHRM Q0513 YOUR YOUR DISPENSIN 9 PHARMACY PHARMACY [employer] [facility] INHALATIO N RX; PER 30 DAYS NEBULIZER E0570 AXEL REYNA WITH 9 HOME MED HOME MED COMPRESSO EQUIP. EQUIP. R LLC LLC NEBULIZER E0570 AXEL AXEL WITH 9 HOME MED HOME MED COMPRESSO EQUIP. EQUIP. R [employer] LLC ALBUTEROL [id number] YOUR YOUR TO 2.5 9 PHARMACY PHARMACY MG [employer] LLC IPRATROPI UM BROM TO 0.5 MG ADMN SET A7003 YOUR YOUR SM VOL 9 PHARMACY PHARMACY [employer] LLC PNEUMAT NEBULIZR DISPBL PHRM Q0513 YOUR YOUR DISPENSIN 9 PHARMACY PHARMACY [employer] LLC INHALATIO N RX; PER 30 DAYS NEBULIZER E0570 AXEL REYNA WITH 9 HOME MED HOME MED COMPRESSO EQUIP. EQUIP. R LLC LLC ADMN SET A7003 YOUR YOUR SM VOL 9 PHARMACY PHARMACY [employer] LLC PNEUMAT NEBULIZR DISPBL ALBUTEROL J7620 YOUR YOUR TO 2.5 9 PHARMACY PHARMACY [employer] LLC IPRATROPI UM BROM TO 0.5 MG PHRM Q0513 YOUR YOUR DISPENSIN 9 PHARMACY PHARMACY [employer] LLC INHALATIO N RX; PER 30 DAYS NEBULIZER E0570 AXEL REYNA WITH 9 HOME MED HOME MED COMPRESSO EQUIP. EQUIP. R LLC LLC ADMN SET A7003 YOUR YOUR SM VOL 9 PHARMACY PHARMACY [employer] LLC PNEUMAT NEBULIZR DISPBL ALBUTEROL J7620 YOUR YOUR TO 2.5 9 PHARMACY PHARMACY [employer] LLC IPRATROPI UM BROM TO 0.5 MG PHRM Q0513 YOUR YOUR DISPENSIN 9 PHARMACY PHARMACY [employer] LLC INHALATIO N RX; PER 30 DAYS NEBULIZER E0570 AXEL REYNA WITH 9 HOME MED HOME MED COMPRESSO EQUIP. EQUIP. R LLC LLC NEBULIZER E0570 AXEL REYNA WITH 9 HOME MED HOME MED COMPRESSO EQUIP. EQUIP. R LLC LLC ADMN SET A7003 AXEL REYNA SM VOL 9 HOME MED HOME MED NONFILTR EQUIP. EQUIP. PNEUMAT [employer] LLC NEBULIZR DISPBL ALBUTEROL J7620 YOUR YOUR TO 2.5 9 PHARMACY PHARMACY MG [employer] LLC IPRATROPI UM BROM TO 0.5 MG PHARM [id number] YOUR YOUR DISPEN 9 PHARMACY PHARMACY FEE [employer] LLC LLC RX; [place] [address] PEREZ TODD LIPASE 8 CO CO [facility] BASIC 52501 PEREZ TODD METABOLIC 8 CO CO CR[facility]ICAL [facility]ESS [place] [address] PEREZ TODD AMYLASE 8 CO CO [facility] ANTIBODY 51960 PEREZ TODD HELICOBAC [address] [facility] [place] COLLECTIO 04908 PEREZ TODD N VENOUS 8 [place] BLOOD [facility] VENIPUNCT URE BLOOD 20984 PEREZ TODD COUNT 8 CO CO COMPLETE [facility] AUTO&AUTO DIFRNTL WBC HEPATIC 02914 PEREZ TODD FUNCTION 8 CO CO PANEL [facility] RADEX 08407 PEREZ TODD ABDOMEN 8 CO CO [facility] W/DCBTS&/ ERC VIEWS Encounters Encounter Start End Date Code Location Performer Type Date [facility] - 7 7 [facility] 7 7 [facility] 7 7 [facility] 7 [facility] - 6 6 [facility] 6 6 [facility] 6 6 [facility] 11866 [facility] 6 6 MEDICAL T VISIT SERV 25 FOUNDATIO MINUTES N EMERGENCY 23653 [facility] DEPT 6 6 PREMA VISIT EMERGENCY HIGH PHYS SEVERITY& THREAT [facility] [place] - 6 6 [facility] - 5 5 [facility] OUTPATIEN [facility] 4 4 CLINIC HEALTH OFFICE 71551 [facility] 4 4 CLINIC T VISIT 15 MINUTES [facility]ICAL [facility] ACCESS 3 3 [facility] ACCESS 3 3 [facility] ACCESS 3 3 [facility] - 3 3 [facility] - 3 3 [facility] T [facility] ACCESS 3 3 [facility], ACCESS 2 2 [facility] SH[facility] - 2 2 [facility] T OFFICE 04467 VANESSA MENDEZ JR OUTPATIEN 2 2 MATIAS MATIAS T NEW 30 MINUTES [facility] ACCESS 2 2 [facility] CLINIC, MIN RURAL 1 1 [facility] CLIN[facility], [facility] 1 1 [facility] CL[facility]IC, [facility]URAL 1 1 [facility] CRITICAL PEREZ ACCESS 1 1 [facility], [facility] 1 1 [facility] CL[facility], MIN RURAL 1 1 [facility] CLINIC, MIN RURAL 1 1 [facility] OFFICE 27062 MIN OUTPATIEN 1 1 CLINIC T VISIT PSC 15 MINUTES CLINIC, MIN RURAL 1 1 [facility] CLINIC, MIN RURAL 0 0 [facility] OFFICE 26035 MIN OUTPATIEN 0 0 CLINIC T VISIT PSC 15 MINUTES OFFICE 81684 MIN OUTPATIEN 0 0 CLINIC T VISIT PSC 15 MINUT[facility] CLINIC, MIN RURAL 0 0 [facility] CLINIC, MIN RURAL 0 0 [facility] OFFICE 73734 MIN OUTPATIEN 0 0 CLINIC T VISIT PSC 25 MINUTES CRITICAL PEREZ ACCESS 0 0 [facility] OFFICE 67250 MIN OUTPATIEN 0 0 CLINIC T VISIT PSC 25 MINUTES CLINIC, MIN RURAL 0 0 [facility] OFFICE 14090 MIN OUTPATIEN 0 0 CLINIC T VISIT PSC 25 MINUTES OFFICE 92818 MIN OUTPATIEN 0 0 CLINIC T VISIT PSC 15 MINUTES CLINIC, MIN RURAL 0 0 [facility] CRITICAL PEREZ ACCESS 0 0 [facility] OFFICE 73317 MIN OUTPATIEN 0 0 CLINIC T VISIT PSC 15 MINUTES CLINIC, MIN RURAL 0 0 [facility] OFFICE 61324 MIN OUTPATIEN 0 0 CLINIC T VISIT PSC 15 MINUTES CLINIC, MIN RURAL 0 0 [facility] CRITICAL PEREZ ACCESS 9 9 [facility] CLINIC, MIN RURAL 9 9 [facility] OFFICE 02625 MIN TAMAREN, OUTPATIEN 9 9 CLINIC KIMBERLY T VISIT PSC 25 MINUTES CLINIC, MIN RURAL 9 9 [facility] OFFICE 86036 MIN OUTPATIEN 9 9 CLINIC T VISIT PSC 15 MINUTES OFFICE 27010 MIN TAMAREN, OUTPATIEN 9 9 CLINIC KIMBERLY T VISIT PSC 15 MINUTES OFFICE 44028 MIN TAMAREN, OUTPATIEN 9 9 CLINIC KIMBERLY T VISIT PSC 15 MINUTES OFFICE 31066 MOIRA MOFFETT 9 9 CLINIC KIM[facility] T VISIT PSC 15 MINUTES OFFICE 81973 MOIRA MOFFETT 8 8 CLINIC KIMBERLY T VISIT PSC 25 MINUTES [facility] 8 8 [facility] OFFICE 57271 MOIRA MOFFETT 8 8 CLINIC KIMBERLY T VISIT PSC 25 MINUTES OFFICE 62088 MOIRA MOFFETT 8 8 CLINIC KIMBERLY T VISIT PSC 15 MINUTES
--- OUTSIDE RECORDS SUMMARY | 2016-11-23 12:29 | External Medical Summary Rpt ---
Author Author , NATHANIEL ARMSTRONG Address Unknown Phone [email or web address] Care Team Providers Care Regional Airline Pilot Name Role Phone AHMED ADN, AHMED ADN Unavailable Unavailable ALI AMJ, ALI AMJ Unavailable Unavailable RAHMAN, RAHMAN Unavailable Unavailable [facility] Unavailable Unavailable [facility], [facility], [facility] Unavailable Unavailable [facility]AN [facility], Unavailable Unavailable [facility] Unavailable Unavailable [facility], Unavailable Unavailable [facility] LAITH GIRARD Unavailable Unavailable [facility], Unavailable [...] TREVINO EDWARD, Unavailable Unavailable TREVINO EDWARD ERUM KATHLEEN, Unavailable Unavailable [facility] KATHLEEN WANG, Unavailable Unavailable [facility] KATHLEEN DANIELSON, Unavailable Unavailable JOSE K, ERUM, JOSE K [facility] Unavailable Unavailable INC, [facility] ALAINA ERNST, FOLEY Unavailable Unavailable KLEVER WILLIAN FOLEY S, Unavailable Unavailable WILLIAN FOLEY [facility], Unavailable Unavailable [facility], Unavailable Unavailable [facility] Unavailable Unavailable INC, [facility] OCHOA AUD, OCHOA AUD Unavailable Unavailable [facility] Unavailable Unavailable [facility], [facility] Unavailable [facility], [facility] Unavailable Unavailable HOLDINGS, [facility] ZULETA, ZULETA Unavailable Unavailable [facility] Unavailable Unavailable ASSOCIAT, [facility] TOBIN, TOBIN Unavailable Unavailable [facility] Unavailable Unavailable [facility], [facility], Unavailable Unavailable [facility] LEONCIO DONAHUE MD Unavailable Unavailable CONSULTING SRV, LEONCIO DONAHUE MD CONSULTING SRV SCALF, SCALF Unavailable Unavailable SCALF KLEVER, SCALF KLEVER Unavailable Unavailable [facility], Unavailable Unavailable [facility] Unavailable Unavailable [facility], [facility] Unavailable Unavailable [facility], [facility] Unavailable Unavailable PHYSICIAN SERVI, [facility] SPEACH ALB, SPEACH Unavailable Unavailable ALB SPEACH ALB, SPEACH Unavailable Unavailable ALB TAMAREN VIKRAM, TAMAREN Unavailable Unavailable VIKRAM TAMAREN VIKRAM, TAMAREN Unavailable Unavailable VIKRAM JJCHRISTO KIMBERLY, Unavailable Unavailable JOCELYNEMaryjane KIMBERLY [facility] Unavailable Unavailable [facility], Unavailable [facility], Unavailable [facility]available [facility] Purpose Continuity of Care Document - 08-11-2007 through 2016 Problems Code Diagnosis DOS Provider Status J449 CHRONIC 10-01-2016 [facility] P[facility] DISEASE UNS 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 I509 HEART 05-14-2016 [facility] FAILURE [facility] UNSPECIFIED INC I272 OTHER 04-30-2016 [facility] PH[facility] PULMONARY GROUP HYPERTENSIO N 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 INC R0600 DYSPNEA 04-30-2016 [facility] UNSPECIFIED [facility] INC R0602 SHORTNESS 04-30-2016 [facility] OF BREATH PHYSICIANS GROUP R9439 ABNORMAL 04-30-2016 [facility] RESULT OT PHYSICIANS CARDIOVASCU GROUP LR FUNCTION STUDY I10 ESSENTIAL 04-24-2016 [facility] N I209 ANGINA 04-24-2016 [facility]ECT[facility]IS [facility] UNSPECIFIED INC I739 PERIPHERAL 04-24-2016 [facility] UNSPECIFIED R0989 OTH SPEC SX 04-24-2016 [facility] & [facility]NS [facility]ICAL INVLV THE IMAGING ASS CIRC & RESP SYS Z720 TOBACCO USE 04-24-2016 [facility] I208 OTHER FORMS 04-15-2016 [facility] OF ANGINA PHYSICIANS PECTORIS GROUP I340 NONRHEUMATI 04-15-2016 [facility] INSUFFICIEN CY I517 CARDIOMEGAL 04-15-2016 [facility] J440 COPD WITH 04-08-2016 [facility] RESPIRATORY INFECTION R079 CHEST PAIN 04-08-2016 [place] [facility] U[facility]PECIFIED [facility] R4182 ALTERED 02-09-2016 [facility] STATUS UNSPECIFIED B67614 OTHER LONG 01-14-2016 [facility] TERM MIGUEL[facility]EL CURRENT HOLDINGS DRUG THERAPY I5043 ACUTE ON 06-11-2015 LEONCIO DONAHUE CHRONIC COMB CONSULTING SYSTOLIC & SRV DIASTOLIC CHF D696 THROMBOCYTO 06-10-2015 [facility]NSPEC[facility] SERV[facility] J111 FLU D/T 06-10-2015 [facility] UNIDENTIFIE N PHYSICIAN D FLU VIRUS SERVI W/OTH RESP MANIF J441 CHRONIC 06-10-2015 [facility] OBSTRUCTIVE N PHYSICIAN PULMONARY SERVI DZ W/EXACERBAT ION N179 ACUTE 06-10-2015 [facility] KIDNEY N PHYSICIAN FAILURE SERVI UNSPECIFIED [id number] DECREASED 06-09-2015 [facility] BLOOD [facility] CELL COUNT [facility] UNSPECIFIED E785 HYPERLIPIDE 06-09-2015 [facility] UNSPECIFIED HOSPITAL 496 CHRONIC 12-24-2014 [facility] NEC 2720 PURE 11-09-2014 LEONCIO DONAHUE HYPERCHOLES TEROLEMIA CONSULTING SRV 4019 UNSPECIFIED 11-09-2014 ELONCIO DONAHUE ESSENTIAL HYP[place]SIO CONS[place]ING N SRV 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 44657 OTHER 09-18-2014 [facility] NONSPECIFIC MEDICAL ABNORMAL IMAGING ASS FINDING OF LUNG FIELD 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 UNSPECIFIED 3899 UNSPECIFIED 04-30-2014 [facility] LOSS 5589 OTH&UNSPEC 05-03-2013 [facility] NONINFECTIO CLINIC US GASTROENTER ITIS&COLITI S 5781 BLOOD IN 05-03-2013 [facility] STOOL [facility]INIC 48596 ABDOMINAL 05-03-2013 [facility] PAIN, CLINIC UNSPECIFIED SITE 7823 EDEMA 10-11-2012 DONAHUE LEONCIO 7851 PALPITATION 09-01-2012 [facility] LEONCIO S 4280 CONGESTIVE 08-31-2012 [facility] HEART [facility] FAILURE [facility] UNSPECIFIED HOS 4293 CARDIOMEGAL 08-31-2012 [facility] Y [facility] 4299 UNSPECIFIED 08-31-2012 [facility] HE[facility] DISEASE [facility] 34791 OTHER 08-02-2012 [facility] DISEASES OF CAMRON KATHLEEN LUNG NOT ELSEWHERE CLASSIFIED 4928 OTHER 06-09-2012 [facility] EMPHYSEMA [facility] 70908 SHORTNESS 05-05-2012 [facility] INC, OF BREATH [facility] [place] [facility] 7862 COUGH 02-22-2012 [facility] INC, PUMP RUNNER [facility] HOS 60709 OBSTRUCTIVE 02-08-2012 BELINDA CHRONIC EDWARD BRONCHITIS WITH EXACERBATIO N 605 REDUNDANT 08-27-2011 [facility] PREPUCE AND MEM [facility]P PHIMOSIS INC V5866 LONG-TERM 08-27-2011 [facility] USE OF MEM HOS[facility] ASPIRIN INC 49179 UNSPECIFIED 08-20-2011 VANESSA JR URINARY MATIAS INCONTINENC E 54887 ESOPHAGEAL 08-18-2011 [facility] LEONCIO REFLUX 63339 ABDOMINAL 08-18-2011 [facility]UE LEONCIO PAIN, EPIGASTRIC 5780 HEMATEMESIS 08-14-2011 TAMCHRISTO SUE 70001 OTHER 08-13-[facility] DISEAS[facility]OLOGY SPLEEN ASSOCIAT 02431 DIVERTICULO 08-13-2011[facility] SIS OF RADIOLOGY COLON ASSOCIAT 5738 OTHER 08-13-2011[facility] SPECIFIED RADIOLOGY DISORDERS ASSOCIAT OF LIVER 70008 OTHER 08-13-2011[facility] SPECIFIED RADIOLOGY DISORDERS ASSOCIAT OF BLADDER 7245 UNSPECIFIED 08-13-2011 AHMED ADN BACKACHE 22449 CHEST PAIN 08-13-2011 AHMED ADN UNSPECIFIED 486 PNEUMONIA, 07-25-2011 LAUREN SUE ORGANISM UNSPECIFIED 50623 OTHER 07-23-2011 [facility] PAIN 20400 CHILLS 07-23-2011 [facility] WITHOUT HOSPITAL FEVER 82918 CLOSED 06-25-2011 [facility] INC, FRACTURE OF [facility] RIB, [facility] UNSPECIFIED HOS 62799 CLOSED 06-25-2011 [facility] FRACTURE OF RADIOLOGY ONE RIB ASSOCIAT E8889 UNSPECIFIED 06-25-2011 [facility]ALL [facility] ASSOCIAT 13371 GEN 04-22-2011 BELINDA OSTEOARTHRO EDWARD SIS INVOLVING MULTIPLE SITES 4619 ACUTE 02-23-2011 [facility] SINUSITIS, CLINIC PSC UNSPECIFIED 7080 ALLERGIC 01-30-2011 [facility] URTICARIA CLINIC PSC 9951 ANGIONEUROT 04-16-2010 MIN IC EDEMA CLINIC PSC NOT ELSEWHERE CLASSIFIED 4139 OTHER AND 01-13-2010 [facility] UNSPECIFIED CLINIC PSC ANGINA PECTORIS 96278 OSTEOARTHRO 10-24-2009 MIN S UNSPEC CLINIC PSC WHETHER GEN/LOC UNSPEC SITE 02339 COR 05-29-2009[place] UNSPEC ASSOCIATES TYPE VESSEL PSC SILETZ TRIBE/JESSICA T 7931 NONSPEC 05-29-2009 [facility] OTH EXAM BODY STRUCT LUNG FIELD V1582 PERS HX 05-29-2009 [facility] TOBACCO USE HOSPITAL PRESENTING [facility] 7863 HEMOPTYSIS 12-05-2008 [facility] HOSPITAL 65177 OSTEOARTHRO 07-26-2008 MIN SIS UNSPEC CLINIC PSC WHETHER GEN/LOC LOWER LEG 490 BRONCHITIS 04-27-2008 MIN NOT CLINIC PSC SPECIFIED ACUTE OR CHRONIC 16986 OTHER 04-27-2008 [facility] DYSPNEA [facility] [place] [address] ABDOMINAL 01-17-2008 [facility] PAIN RIGHT HOSPITAL UPPER QUADRANT V4589 OTHER 01-17-2008 [facility] L STATUS OTHER V5869 LONG-TERM 01-17-2008 [facility] (CURRENT) HOSPITAL USE OF OTHER MEDICATIONS 6918 OTHER 08-11-2007 [facility] ATOPIC [facility]IN[facility] DERMATITIS AND RELATED CONDITIONS Medications Na ND Rx Da Fi Fi [...] 80 11 11 FA JA E 1 WV NE 20 LY T [address] UG CA PS UL E AL 24 10 10 0 24 24 SO 38 TA Ac LE 38 -0 -0 .0 PE 62 MA ti RG 50 7 7- RS 80 RE ve Y 46 20 20 N 25 26 11 11 FA JA 2 WV NE MG LY T CA DR PS UG UL E 00 10 10 0 30 30 SO 38 TA Ac 90 -0 -0 .0 PE 62 MA ti 45 7- 7- 00 RS 81 RE ve 82 20 20 N 94 11 11 FA JA 6 WV NE LY T DR UG CL 00 09 09 2 60 30 SO 38 TA Ac ON 22 -2 -2 .0 PE 50 MA ti AZ 83 3- 3- 00 RS 53 RE ve EP 00 20 20 N AM 35 11 11 FA JA 0 WV NE 0. LY T [address] UG TA BL ET AK 50 08 08 0 12 3 SO 38 TA Ac OM 38 -0 -0 0. PE 03 MA ti ET 30 4- 4- 00 RS 83 RE ve HAMPT[place] 80 20 20 0 N ZI 41 11 11 FA JA NE 6 WV NE -C LY T OD EI DR NE UG SY RU P CL 00 07 07 2 30 30 SO 37 TA Ac ON 22 -0 -0 .0 PE 77 MA ti AZ 83 5- 5- 00 RS 43 RE ve EP 00 20 20 N AM 35 11 11 FA JA 0 WV NE 0. LY T [address] UG TA BL ET 00 07 07 0 24 4 SO 37 TA Ac 12 -0 -0 0. PE 77 MA ti 10 5- 5- 00 RS 60 RE ve 63 20 20 0 N 81 11 11 FA JA 6 WV NE LY T DR UG AK 50 06 06 0 24 6 SO 37 TA Ac OM 38 -0 -0 0. PE 51 MA ti ET 30 2- 2- 00 RS 85 RE ve HAMPT[place] 80 20 20 0 N ZI 41 11 11 FA JA NE 6 WV NE -C LY T OD EI DR [...] AN TA Y BL IN ET C AK 00 09 09 24 6 HO 10 [...] 0 DI IN [address] XI 7 UG E 1% D CO LO [...] 0 N AM [address] JA [...] 8 N AM [address] CHRIS 0 UG NE 0. T 5 CO MG IN TA C BL ET CL 00 04 08 02 30 30 HO 99 TA Ac ON 18 -0 -1 .0 PK 43 MA ti AZ 50 2- 3- 00 IN 73 RE ve EP 06 20 20 S N AM [address] CHRIS 5 UG NE 0. T 5 CO [...] -2 .0 PK 34 t ti ON IN 26 Av ve AT 24 20 20 S ai AT [address] León 1 UG bl 20 e 0 CO MG IN CA C PS UL E Procedures Procedure DOS Code Location Performer Comment ADMN SET A7003 YOUR YOUR SM VOL 7 PHARMACY PHARMACY NONFILTR LLC LLC PNEUMAT NEBULIZR DISPBL ADMN SET A7003 YOUR YOUR SM VOL 7 PHARMACY PHARMACY NONFILTR [employer] PNEUMAT NEBULIZR DISPBL IPRATROPI J7644 YOUR YOUR UM 7 PHARMACY PHARMACY [facility] [employer] [facility] INHAL NON-CP U DOSE PER MG PRESSURIZ 83433 [facility] ED/NONPRE 7 [facility] SSURIZED INC INC INHALATIO N TREATMENT GAS 43284 [facility] DILUT/WAS 7 [facility] HOUT LUNG INC INC VOL W/WO DISTRIB VENT&[place] [address] [facility] DIFFUSING 7 [facility] CAPACITY INC INC NONINVASI 39478 [facility] VE 7 [facility] EAR/PULSE INC INC OXIMETRY MULTIPLE DETER BRNCDILAT 70795 [facility] RSPSE 7 [facility] SPMTRY INC INC PRE&POST- BRNCDILAT ADMN ADMN SET A7003 YOUR YOUR SM VOL 7 PHARMACY PHARMACY NONFILTR [employer] PNEUMAT NEBULIZR DISPBL IPRATROPI J7644 YOUR YOUR UM 7 PHARMACY PHARMACY [facility] [employer] INHAL NON-CP U DOSE PER MG NEBULIZER E0570 AXEL REYNA WITH 7 HOME HOME [facility] R EQUIPME EQUIPME PHRM Q0513 YOUR YOUR DISPENSIN 7 PHARMACY PHARMACY G FEE [employer] INHALATIO N RX; PER 30 DAYS IPRATROPI J7644 YOUR YOUR UM 7 PHARMACY PHARMACY [facility] [employer] INHAL NON-CP U DOSE PER MG ADMN SET A7003 YOUR YOUR SM VOL 7 [facility]ARM[facility]Y [facility] PNE[facility] NEBULIZR DISPBL ECG 15437 [facility] ROUTINE 7 [facility] ECG INC INC W/LEAST 12 LDS TRCG ONLY W/O I&R NEBULIZER E0570 AXEL REYNA WITH 7 HOME HOME [facility] MEDICAL R EQUIPME EQUIPME INJECTION J1644 [facility] HEPARIN 7 [facility] SODIUM INC INC PER 1000 UNITS CATHETER C1725 [facility] TRANSLUMI 7 [facility] NAL INC INC ANGIOPLAS TY NON-LASER R & L HRT 00739 [facility] CATH 7 [facility] WINJX HRT INC INC ART& L VENTR IMG GUIDE C1769 [facility]UCAS WIRE 7 [facility] INC INC BASIC 12433 [facility] METABOLIC 7 [facility] PANEL INC INC CALCIUM TOTAL GASES 74560 [facility] BLOOD O2 7 [facility] SATURATIO INC INC N ONLY DIRECT JOSÉ LOCM Q9967 [facility] L[facility] 300-399 7 [facility] MG/ML INC INC IODINE CONCENTRA TION PER ML INTRDUCR/ C1894 [facility] SHEATH 7 [facility] NOT GUID INC INC INTRACARD EP NON-LASR BLOOD 38954 [facility] LUC[facility] COUNT 7 [facility] COMPLETE INC INC AUTO&AUTO DIFRNTL WBC ECG 07636 [facility]UCAS ROUTINE 7 [facility] ECG INC INC W/LEAST 12 LDS TRCG ONLY W/O I&R DUPLEX 84330 [facility] RAHMNA SCAN 6 MEDICAL EXTRACRAN IMAGING IAL ART ASS COMPL BI STUDY NON-INVAS 21363 [place] RAHMAN NIC 6 MEDICAL PHYSIOLOG IMAGING IC STUDY ASS EXTREMITY 3 LEVLS INJECTION J2785 [facility] LUCAS 6 [facility] REGADENOS INC INC ON 0.1 MG CV STRS 96716 [facility] TST 6 [facility] XERS&/OR INC INC RX CONT ECG TRCG ONLY MYOCARDIA 46358 [facility] Martin SPECT 6 [facility] MULTIPLE INC INC STUDIES TECHNETIU A9500 [facility] Duffy TC-99M 6 [facility] SESTAMIBI INC INC DX PER STUDY DOSE ECHO 24334 [facility] TTHRC R-T 6 [facility] 2D INC INC W/WOM-MOD E COMPL SPEC&COLR D ECHO 28755 [place] [facility] TRANSTHOR 6 MEDICAL C R-T 2D SERV W/WO FOUNDATIO M-MODE N REC F-UP/LMTD NEBULIZER E0570 AXEL REYNA WITH 6 HOME HOME [facility] MEDICAL R EQUIPME EQUIPME ECG 92518 [facility] ROUTINE 6 [facility] ECG INC INC W/LEAST 12 LDS TRCG ONLY W/O I&R ADMN SET A7003 YOUR YOUR SM VOL 6 PHARMACY PHARMACY [employer] PNEUMAT NEBULIZR DISPBL IPRATROPI J7644 YOUR YOUR UM 6 PHARMACY PHARMACY [facility] [employer] [facility] INHAL NON-CP U DOSE PER MG PHRM Q0513 YOUR YOUR DISPENSIN 6 PHARMACY PHARMACY G FEE [employer] INHALATIO N RX; PER 30 DAYS RADIOLOGI 68391 [facility] [place] SCALF C EXAM 6 RADIOLOGY CHEST 2 VIEWS FRONTAL&[place] [address] [facility] [place] SEBASTIAN HEAD/BRAI 6 RADIOLOGY N W/O CONTRAST MATERIAL ADMN SET A7003 YOUR YOUR SM VOL 6 PHARMACY PHARMACY [employer] PNEUMAT NEBULIZR DISPBL IPRATROPI J7644 YOUR YOUR UM 6 PHARMACY PHARMACY [facility] [employer] [facility] INHAL NON-CP U DOSE PER MG PHRM Q0513 YOUR YOUR DISPENSIN 6 PHARMACY PHARMACY G FEE [employer] INHALATIO N RX; PER 30 DAYS DRUG TST G0483 [facility] DEFINITV [address] [facility] HOLDINGS METH P DAY 22/MORE DR TAYLOR ADMN SET A7003 AXEL REYNA SM VOL 6 HOME HOME NONFILTR MEDICAL MEDICAL PNEUMAT EQUIPME EQUIPME NEBULIZR DISPBL NEBULIZER E0570 AXEL REYNA WITH 6 HOME HOME [facility] MEDICAL R EQUIPME EQUIPME IPRATROPI J7644 YOUR OCHOA AUD UM 6 PHARMACY [facility] LLC INHAL NON-CP U DOSE PER MG PHRM Q0513 YOUR [facility] AUD DISPENSIN 6 PHARMACY G FEE LLC INHALATIO N RX; PER 30 DAYS ADMN SET A7003 YOUR [facility]CHO[facility] AUD SM VOL 6 PHARMACY NONFILTR LLC PNEUMAT NEBULIZR DISPBL ADMN SET A7003 YOUR YOUR SM VOL 6 PHARMACY PHARMACY NONFILTR LLC LLC PNEUMAT NEBULIZR DISPBL PHRM Q0513 YOUR YOUR DISPENSIN 6 PHARMACY PHARMACY G FEE LLC LLC INHALATIO N RX; PER 30 DAYS IPRATROPI J7644 YOUR YOUR UM 6 PHARMACY PHARMACY [facility] LLC INHAL NON-CP U DOSE PER [facility] 79695 [facility] 6 PREMA DAY PHYSICIAN MANAGEMEN SERVI T > 30 MIN SBSQ 56830 [facility] 6 PREMA CARE/DAY PHYSICIAN 25 SERVI MINUTES SBSQ 99215 [facility] 6 [facility] CARE/DAY PHYSICIAN 25 SERVI MINUTES ECHO 06798 LEONCIO DONAHUE DONAHUE LEONCIO TTHRC R-T 6 2D CONSULTIN W/WOM-MOD G SRV E COMPL SPEC&COLR D SBSQ 59687 [facility] 6 PREMA CARE/DAY PHYSICIAN 35 SERVI MINUTES INITIAL 02135 [facility] 6 [facility] CARE/DAY PHYSICIAN 70 SERVI MINUTES RADIOLOGI 38173 [facility] [place] SCALF KLEVER C EXAM 6 [...] PER 30 DAYS IPRATROPI J7644 YOUR YOUR UM 5 PHARMACY PHARMACY [facility] LLC INHAL NON-CP U DOSE PER MG ECG 80339 LEONCIO DONAHUE DONAHUE LEONCIO ROUTINE 5 MD [...] NON-CP U DOSE PER MG CT THORAX 33194 [place] CANDELARIA W/O 5 MEDICAL ASHWINI CONTRAST IMAGING MATERIAL ASS IPRATROPI J7644 YOUR YOUR 5 PHARMACY PHARMACY [facility] LLC INHAL NON-CP U DOSE PER MG PHRM Q0513 YOUR YOUR DISPENSIN 5 PHARMACY PHARMACY G FEE LLC LLC INHALATIO N RX; PER 30 DAYS COMPRE 90048 SPEACH SPEACH AUDIOMETR 5 ALB ALB Y THRESHOLD EVAL SP RECOGNIJ COLLECTIO 83142 MIN COPELAND N VENOUS 5 CLINIC CLINIC BLOOD VENIPUNCT URE PHRM Q0513 YOUR YOUR DISPENSIN 4 PHARMACY [...] DAYS ADMN SET A7003 YOUR YOUR VOL 4 PHARMACY PHARMACY NONFILTR LLC LLC PNEUMAT NEBULIZR DISPBL PHRM Q0513 YOUR YOUR DISPENSIN 3 PHARMACY PHARMACY G [facility] LLC LLC INHALATIO N RX; PER 30 DAYS IPRATROPI J7644 YOUR YOUR 3 PHARMACY PHARMACY [facility] LLC INHAL NON-CP U DOSE PER MG IPRATROPI J7644 YOUR YOUR UM 3 PHARMACY PHARMACY [facility] LLC INHAL NON-CP U DOSE PER MG PHRM Q0513 YOUR YOUR DISPENSIN 3 PHARMACY PHARMACY G [facility] LLC LLC INHALATIO N RX; PER 30 DAYS DUP-SCAN 66385 DONAHUE LEONCIO DONAHUE LEONCIO XTR VEINS 3 COMPLETE BILATERAL STUDY PHRM Q0513 YOUR YOUR DISPENSIN 3 PHARMACY PHARMACY G [facility] LLC LLC INHALATIO N RX; PER 30 DAYS IPRATROPI J7644 YOUR YOUR 3 PHARMACY PHARMACY [facility] LLC INHAL NON-CP U DOSE PER MG IPRATROPI J7644 YOUR YOUR UM 3 PHARMACY PHARMACY [facility] INHAL NON-CP U DOSE PER MG PHRM Q0513 YOUR YOUR DISPENSIN 3 PHARMACY PHARMACY G [facility] LLC INHALATIO N RX; PER 30 DAYS ECHO 49294 DONAHUE LEONCIO DONAHUE LEONCIO TTHRC R-T 3 2D W/WOM-MOD E COMPL SPEC&COLR D ECHO 99144 [facility], [facility], TTHRC R-T 3 PUMP RUNNER PUMP RUNNER 2D [facility] W/WOM-MOD CO HOS CO HOS E COMPL SPEC&COLR D ECG 81979 DONAHUE LEONCIO DONAHUE LEONCIO ROUTINE 3 ECG W/LEAST 12 LDS I&R ONLY ECG 33356 [facility] [employer] [facility], [facility], ROUTINE 3 PUMP RUNNER PUMP RUNNER ECG [facility] W/LEAST CO HOS CO HOS 12 LDS TRCG ONLY W/O I&R PHRM Q0513 YOUR YOUR DISPENSIN 3 PHARMACY PHARMACY G [facility] LLC LLC INHALATIO N RX; PER 30 DAYS IPRATROPI J7644 YOUR YOUR UM 3 PHARMACY PHARMACY [facility] LLC INHAL NON-CP U DOSE PER MG RADIOLOGI 71933 [facility] [employer] [facility], [facility] [employer], C EXAM 3 PUMP RUNNER PUMP RUNNER CHEST 2 [facility] TODD VIEWS CO HOS CO HOS FRONTAL&L ATERAL COMPREHEN 40860 [facility] [employer], [facility] INC, SIVE 3 PUMP RUNNER PUMP RUNNER METABOLIC [facility] TODD PANEL CO HOS CO HOS BLOOD 49123 [facility] [employer] [facility], [facility] INC, COUNT 3 PUMP RUNNER PUMP RUNNER COMPLETE [facility] TODD AUTO&AUTO CO HOS CO HOS DIFRNTL WBC IPRATROPI J7644 YOUR YOUR UM 3 PHARMACY PHARMACY [facility] LLC INHAL NON-CP U DOSE PER MG PHRM Q0513 YOUR YOUR DISPENSIN 3 PHARMACY PHARMACY G FEE LLC LLC INHALATIO N RX; PER [address] THORAX 40979 [facility] W/O 3 [facility] CONTRAST INC INC MATERIAL 3D 64711 [facility] RENDERING 3 [facility] INC INC W/INTERP& POSTPROC DIFF WORK STATION SPMTRY 06621 [facility] W/VC 3 [facility] EXPIRATOR INC INC Y SHAWNA W/WO MXML VOL VNTJ NONINVASI 55718 [facility]UC[facility] VE 3 [facility] EAR/PULSE INC INC OXIMETRY SINGLE DETER RADIOLOGI 13192 [facility], [facility] INC, C EXAM 3 PUMP RUNNER PUMP RUNNER CHEST 2 [facility] VIEWS CO HOS CO HOS FRONTAL&L ATERAL ADMN SET A7003 YOUR YOUR SM VOL 2 PHARMACY PHARMACY NONFILTR PNEUMAT NEBULIZR DISPBL ALBUTEROL J7620 YOUR YOUR TO 2.5 2 PHARMACY PHARMACY MG & IPRATROPI UM BROM TO 0.5 MG RADIOLOGI 73729 [facility], [facility] INC, C EXAM 2 PUMP RUNNER PUMP RUNNER CHEST 2 PEREZ PEREZ VIEWS CO HOS CO HOS FRONTAL&L ATERAL INJECTION J0696 BELINDA TREVINO 2 [facility] CEFTRIAXO NE SODIUM PER 250 MG INJECTION J1030 BELINDA TREVINO 2 [facility] METHYLPRE DNISOLONE ACETATE 40 MG ALBUTEROL J7620 YOUR YOUR TO 2.5 2 PHARMACY PHARMACY [employer] [facility] IPRATROPI UM BROM TO 0.5 MG ADMN SET A7003 YOUR YOUR SM VOL 2 PHARMACY PHARMACY [facility] PNEUMAT NEBULIZR DISPBL ADMN SET A7003 YOUR YOUR SM VOL 2 PHARMACY PHARMACY [facility] PNEUMAT NEBULIZR DISPBL ALBUTEROL J7620 YOUR YOUR TO 2.5 2 PHARMACY PHARMACY MG [employer] [facility] IPRATROPI UM BROM TO 0.5 MG ALBUTEROL J7620 YOUR YOUR TO 2.5 2 PHARMACY PHARMACY [employer] [facility] IPRATROPI UM BROM TO 0.5 MG ADMN SET A7003 YOUR YOUR SM VOL 2 PHARMACY PHARMACY [facility] [employer] [facility] PNEUMAT NEBULIZR DISPBL ADMN SET A7003 YOUR YOUR SM VOL 2 PHARMACY PHARMACY [facility] PNEUMAT NEBULIZR DISPBL ALBUTEROL J7620 YOUR YOUR TO 2.5 2 PHARMACY PHARMACY [employer] [facility] IPRATROPI UM BROM TO 0.5 MG ALBUTEROL J7620 YOUR YOUR TO 2.5 2 PHARMACY PHARMACY [employer] IPRATROPI UM BROM TO 0.5 MG ADMN SET A7003 YOUR YOUR SM VOL 2 PHARMACY PHARMACY [employer] [facility] [place] [address] SHAYY LUCAS INFUSION 2 [facility] THERAPY INC INC PROPHYLAX IS/DX EA HOUR CIRCUMCIS 17071 SHAYY LUCAS ION AGE 2 [facility] >28 [place] [address] SHAYY LUCAS INFUSION 2 [facility] THERAPY/P INC INC ROPHYLAXI S /DX 1ST TO 1 HR THERAPEUT 90654 SHAYY LUCAS IC 2 [facility] INJECTION INC INC IV PUSH EACH NEW DRUG ECG 33448 DONAHUE LEONCIO DONAHUE LEONCIO ROUTINE 2 ECG W/LEAST 12 LDS I&R ONLY OBSERVATI 71677 LAUREN AGUILAR ON CARE 2 Apr DISCHARGE MANAGEMEN T RADEX ABD [address] [facility] COMPL 2 EIDER KATHLEEN AQT ABD RADIOLOGY W/S/E/D ASSOCIAT VIE[address] [place] [address] [facility] ABDOMEN & 2 MAGALYS PELVIS RADIOLOGY W/O ASSOCIAT CONTRST 1/> BODY [facility] 12801 LAUREN AGUILAR DISCHARGE 2 Apr DAY MANAGEMEN T 30 MIN/< RADIOLOGI 64674 [facility] C 2 KLEVER EXAMINATI RADIOLOGY ON CHEST ASSOCIAT SINGLE VIEW FRONTAL RADEX 91236 [employer], RIBS UNI 2 PUMP RUNNER PUMP RUNNER W/POSTERO PEREZ TODD ANT CH CO HOS CO HOS MINIMUM 3 VIEWS RADIOLOGI 41357 [employer], C EXAM 2 PUMP RUNNER PUMP RUNNER CHEST 2 PEREZ PEREZ VIEWS CO HOS CO HOS FRONTAL&L ATERAL ALBUTEROL J7620 YOUR YOUR TO 2.5 2 PHARMACY PHARMACY [employer] IPRATROPI UM BROM TO 0.5 MG ADMN SET A7003 YOUR YOUR SM VOL 2 PHARMACY PHARMACY [employer] [facility] PNEUMAT NEBULIZR DISPBL INJECTION J0696 BELINDA TREVINO 2 [facility] CEFTRIAXO NE SODIUM PER 250 MG INJECTION J1030 BELINDA TREVINO 2 [facility] METHYLPRE DNISOLONE ACETATE 40 MG ALBUTEROL J7620 YOUR YOUR TO 2.5 2 PHARMACY PHARMACY [employer] [facility] IPRATROPI UM BROM TO 0.5 MG ADMN SET A7003 YOUR YOUR SM VOL 2 PHARMACY PHARMACY [facility] PNEUMAT NEBULIZR DISPBL ADMN SET A7003 YOUR YOUR SM VOL 1 PHARMACY PHARMACY [facility] PNEUMAT NEBULIZR DISPBL ALBUTEROL J7620 YOUR YOUR TO 2.5 1 PHARMACY PHARMACY [employer] [facility] IPRATROPI UM BROM TO 0.5 MG INJECTION [...] YOUR YOUR TO 2.5 1 PHARMACY PHARMACY [employer] [facility] IPRATROPI UM BROM TO 0.5 MG ADMN SET A7003 YOUR YOUR SM VOL 1 PHARMACY PHARMACY [facility] PNEUMAT NEBULIZR DISPBL ADMN SET A7003 YOUR YOUR SM VOL 1 PHARMACY PHARMACY [facility] PNEUMAT NEBULIZR DISPBL ALBUTEROL J7620 YOUR YOUR TO 2.5 1 PHARMACY PHARMACY [employer] [facility] IPRATROPI UM BROM TO 0.5 MG PHRM Q0513 YOUR YOUR DISPENSIN 1 PHARMACY PHARMACY [facility] INHALATIO N RX; PER 30 DAYS INJECTION J1100 MIN TREVINO 1 [facility] DEXAMETHO PSC SONE SODIUM PHOSPHATE [address] [facility] EXAM 1 KLEVER CHEST 2 RADIOLOGY VIEWS ASSOCIAT FRONTAL&L ATERAL INJECTION J1100 MIN TREVINO 1 [facility] DEXAMETHO PSC SONE SODIUM PHOSPHATE 1 MG ALBUTEROL J7620 YOUR YOUR TO 2.5 1 PHARMACY PHARMACY MG [employer] [facility] IPRATROPI UM BROM TO 0.5 MG ADMN SET A7003 YOUR YOUR SM VOL 1 PHARMACY PHARMACY [facility] PNEUMAT NEBULIZR DISPBL PHRM Q0513 YOUR YOUR DISPENSIN 1 PHARMACY PHARMACY [facility] INHALATIO N RX; PER 30 DAYS PHRM Q0513 YOUR YOUR DISPENSIN 1 PHARMACY PHARMACY [employer] [facility] INHALATIO N RX; PER 30 DAYS ADMN SET A7003 YOUR YOUR SM VOL 1 PHARMACY [facility] PNEUMAT NEBULIZR DISPBL ALBUTEROL J7620 YOUR YOUR TO 2.5 1 PHARMACY PHARMACY [employer] [facility] IPRATROPI UM BROM TO 0.5 MG ALBUTEROL J7620 YOUR YOUR TO 2.5 0 PHARMACY PHARMACY [employer] [facility] IPRATROPI UM BROM TO 0.5 MG ADMN SET A7003 YOUR YOUR SM VOL 0 PHARMACY PHARMACY [employer] [facility] PNEUMAT NEBULIZR DISPBL PHRM Q0513 YOUR YOUR DISPENSIN 0 PHARMACY PHARMACY [employer] [facility] INHALATIO N RX; PER 30 DAYS INJECTION J1030 MIN TAMAREN 0 CLINIC VIKRAM METHYLPRE PSC DNISOLONE ACETATE 40 MG INJECTION J1100 MIN TAMAREN 0 CLINIC VIKRAM DEXAMETHO PSC SONE SODIUM PHOSPHATE 1 MG ALBUTEROL J7620 YOUR YOUR TO 2.5 0 PHARMACY PHARMACY [employer] [facility] IPRATROPI UM BROM TO 0.5 MG ADMN SET A7003 YOUR YOUR SM VOL 0 PHARMACY PHARMACY [employer] [facility] PNEUMAT NEBULIZR DISPBL PHRM Q0513 YOUR YOUR DISPENSIN 0 PHARMACY PHARMACY [employer] [facility] INHALATIO N RX; PER 30 DAYS PHRM Q0513 YOUR YOUR DISPENSIN 0 PHARMACY PHARMACY [employer] [facility] INHALATIO N RX; PER 30 DAYS ADMN SET A7003 YOUR YOUR SM VOL 0 PHARMACY PHARMACY [employer] [facility] PNEUMAT NEBULIZR DISPBL ALBUTEROL J7620 YOUR YOUR TO 2.5 0 PHARMACY PHARMACY [employer] LLC IPRATROPI UM BROM TO 0.5 MG BLOOD 48868 PEREZ TODD COUNT 0 CO [facility] MCRSCP W/MNL DIFRNTL WBC COUNT BASIC 37407 PEREZ TODD METABOLIC 0 CO CO PANEL [facility] CALCIUM TOTAL CREATINE 60916 PEREZ TODD KINASE MB 0 CO [facility] ONLY BLOOD 65643 PEREZ TODD COUNT 0 CO CO COMPLETE [facility] AUTO&[place] [address] PEREZ TODD TROPONIN 0 CO [facility] NIC COLLECTIO 90653 PEREZ TODD N VENOUS 0 CO [place] BLOOD [facility] VENIPUNCT URE CREATINE 65793 PEREZ TODD KINASE 0 CO CO TOTAL [facility] MYOGLOBIN 69751 PEREZ TODD 0 CO [facility] LIPID 83743 PEREZ TODD PANEL 0 CO [facility] PHRM Q0513 YOUR YOUR DISPENSIN 0 PHARMACY PHARMACY G FEE INHALATIO N RX; PER 30 DAYS ALBUTEROL J7620 YOUR YOUR TO 2.5 0 PHARMACY PHARMACY MG & IPRATROPI UM BROM TO 0.5 MG ADMN SET A7003 YOUR YOUR SM VOL 0 PHARMACY PHARMACY NONFILTR PNEUMAT NEBULIZR DISPBL CT THORAX 58256 PEREZ TODD 0 CO CO W/[facility] T MATERIAL COLLECTIO 88650 PEREZ TODD N VENOUS 0 CO [facility] VENIPUNCT URE 3D 33825 PEREZ TODD RENDERING [address] [facility] & POSTPROCE SS SUPERVISI ON ALBUTEROL [...] HOME MED COMPRESSO EQUIP. EQUIP. R LLC [facility] PHRM Q0513 YOUR YOUR DISPENSIN 9 PHARMACY PHARMACY [employer] [facility] INHALATIO N RX; PER 30 DAYS ADMN SET A7003 AXEL REYNA SM VOL 9 HOME MED HOME MED NONFILTR EQUIP. EQUIP. PNEUMAT [employer] [facility] NEBULIZR DISPBL ALBUTEROL J7620 YOUR YOUR TO 2.5 9 PHARMACY PHARMACY [employer] [facility] IPRATROPI UM BROM TO 0.5 MG NEBULIZER E0570 AXEL REYNA WITH 9 HOME MED HOME MED COMPRESSO EQUIP. EQU[employer]. R LLC [facility] PHRM Q0513 YOUR YOUR DISPENSIN 9 PHARMACY PHARMACY [employer] [facility] INHALATIO N RX; PER 30 DAYS ALBUTEROL J7620 YOUR YOUR TO 2.5 9 PHARMACY PHARMACY [employer] [facility] IPRATROPI UM BROM TO 0.5 MG NEBULIZER E0570 AXEL REYNA WITH 9 HOME MED HOME MED COMPRESSO EQUIP. EQUIP. R [employer] [facility] PHRM Q0513 YOUR YOUR DISPENSIN 9 PHARMACY PHARMACY [facility] INHALATIO N RX; PER 30 DAYS ALBUTEROL J7620 YOUR YOUR TO 2.5 9 PHARMACY PHARMACY MG & IPRATROPI UM BROM TO 0.5 MG NEBULIZER E0570 AXEL REYNA WITH 9 HOME MED HOME MED COMPRESSO EQUIP. EQUIP. R [employer] [facility] PHRM Q0513 YOUR YOUR DISPENSIN 9 PHARMACY PHARMACY [employer] [facility] INHALATIO N RX; PER 30 DAYS ALBUTEROL J7620 YOUR YOUR TO 2.5 9 PHARMACY PHARMACY [employer] [facility] IPRATROPI UM BROM TO 0.5 MG CREATININ 45486 PEREZ TODD E BLOOD 9 [facility] 3D 18367 PEREZ TODD RENDERING 9 [facility] & POSTPROCE SS SUPERVISI ON ADMN SET A7005 YOUR YOUR W/SM VOL 9 PHARMACY PHARMACY [employer] [facility] NEBULIZR NON-DISPB L COLLECTIO 41052 PEREZ TODD N VENOUS 9 CO CO BLOOD [facility] VENIPUNCT URE CT THORAX 38965 PEREZ TODD 9 CO CO W/CONTRAS [facility] [place] [address] PEREZ TODD UREA 9 CO CO NITROGEN [facility] QUANTITAT NIC RADIOLOGI 67703 Favio ALVES EXAM 9 WILLIAN S CHEST 2 RADIOLOGY VIEWS FRONTAL&L ASSOCIATE ALEXI Freeman PSC NEBULIZER E0570 AXEL REYNA WITH 9 HOME MED HOME MED COMPRESSO EQUIP. EQUIP. R LLC LLC PHRM Q0513 YOUR YOUR DISPENSIN 9 PHARMACY PHARMACY [employer] [facility] INHALATIO N RX; PER 30 DAYS ALBUTEROL J7620 YOUR YOUR TO 2.5 9 PHARMACY PHARMACY [employer] [facility] IPRATROPI UM BROM TO 0.5 MG ADMN SET A7003 YOUR YOUR SM VOL 9 PHARMACY PHARMACY [employer] [facility] PNEUMAT NEBULIZR DISPBL NEBULIZER E0570 AXEL REYNA WITH 9 HOME MED HOME MED COMPRESSO EQUIP. EQUIP. R LLC LLC PHRM Q0513 YOUR YOUR DISPENSIN 9 PHARMACY PHARMACY [employer] [facility] INHALATIO N RX; PER 30 DAYS ADMN SET A7003 YOUR YOUR SM VOL 9 PHARMACY PHARMACY [employer] [facility] PNEUMAT NEBULIZR DISPBL ALBUTEROL J7620 YOUR YOUR TO 2.5 9 PHARMACY PHARMACY [employer] [facility] IPRATROPI UM BROM TO 0.5 MG NEBULIZER E0570 AXEL REYNA WITH 9 HOME MED HOME MED COMPRESSO EQUIP. EQUIP. R LLC LLC NEBULIZER E0570 AXEL AXEL WITH 9 HOME MED HOME MED COMPRESSO EQUIP. EQUIP. R [employer] LLC PHRM Q0513 YOUR YOUR DISPENSIN 9 PHARMACY PHARMACY [employer] [facility] INHALATIO N RX; PER 30 DAYS ADMN SET A7003 YOUR YOUR SM VOL 9 PHARMACY PHARMACY [employer] [facility] PNEUMAT NEBULIZR DISPBL ALBUTEROL J7620 YOUR YOUR TO 2.5 9 PHARMACY PHARMACY [employer] [facility] IPRATROPI UM BROM TO 0.5 MG NEBULIZER E0570 AXEL REYNA WITH 9 HOME MED HOME MED COMPRESSO EQUIP. EQUIP. R LLC LLC PHRM Q0513 YOUR YOUR DISPENSIN 9 PHARMACY PHARMACY [employer] [facility] INHALATIO N RX; PER 30 DAYS ADMN SET A7003 YOUR YOUR SM VOL 9 PHARMACY PHARMACY [employer] [facility] PNEUMAT NEBULIZR DISPBL ALBUTEROL J7620 YOUR YOUR TO 2.5 9 PHARMACY PHARMACY [employer] [facility] IPRATROPI UM BROM TO 0.5 MG NEBULIZER E0570 AXEL REYNA WITH 9 HOME MED HOME MED COMPRESSO EQUIP. EQUIP. R LLC LLC PHRM Q0513 YOUR YOUR DISPENSIN 9 PHARMACY PHARMACY [employer] INHALATIO N RX; PER 30 DAYS ALBUTEROL J7620 YOUR YOUR TO 2.5 9 PHARMACY PHARMACY [employer] LLC IPRATROPI UM BROM TO 0.5 MG ADMN SET A7003 YOUR YOUR SM VOL 9 PHARMACY PHARMACY [employer] [facility] PNEUMAT NEBULIZR DISPBL NEBULIZER E0570 AXEL REYNA WITH 9 HOME MED HOME MED COMPRESSO EQUIP. EQUIP. R LLC LLC NEBULIZER E0570 AXEL REYNA WITH 9 HOME MED HOME MED COMPRESSO EQUIP. EQU[employer]. R [employer] LLC ADMN SET A7003 AXEL REYNA SM VOL 9 HOME MED HOME MED NONFILTR EQUIP. EQUIP. PNEUMAT [employer] NEBULIZR DISPBL ALBUTEROL J7620 YOUR YOUR TO 2.5 9 PHARMACY PHARMACY [employer] [facility] IPRATROPI UM BROM TO 0.5 MG PHARM [id number] YOUR YOUR DISPEN 9 PHARMACY PHARMACY FEE INHAL [employer] RX; INITIAL 30-DAY SUPPLY RADEX 68585 PEREZ TODD ABDOMEN 8 CO CO [facility] W/DCBTS&/ ERC VIEWS ANTIBODY 34899 PEREZ TODD HELICOBAC 8 CO CO [facility] PYLORI COLLECTIO 34943 PEREZ PEREZ Wesley VENOUS 8 CO CO BLOOD [facility] [place] [address] PEREZ PEREZ AMYLASE 8 CO [facility] BASIC 29899 PEREZ TODD METABOLIC 8 CO CO PANEL [facility] [place] [address] PEREZ PEREZ LIPASE 8 CO [facility] BLOOD 84706 PEREZ TODD COUNT 8 CO [facility] AUTO&AUTO DIFRNTL WBC HEPATIC 27651 PEREZ PEREZ FUNCTION 8 CO [facility] Encounters Encounter Start End Date Code Location Performer Type Date [facility] - 7 7 [facility] 7 [facility] - 7 7 [facility] - 7 7 [facility] 6 6 [facility] 6 6 [facility] 6 6 [facility] [address] [place] [facility] OUTPATIEN 6 6 MEDICAL T VISIT SERV 25 FOUNDATIO MINUTES [facility] [address]32 [facility] 6 [facility] VISIT EMERGENCY HIGH PHYS SEVERITY& THREAT [facility] SH[facility] - 5 5 [facility] 79755 MIN [facility] 4 4 CLINIC T [facility]ISIT 15 MINUTES CLINIC, MIN [facility] 4 4 CLINIC HEALTH CRITICAL [facility], ACCESS 3 3 [facility], ACCESS 3 3 [facility], ACCESS 3 3 [facility] SHAY[facility] - 3 3 [facility] - 3 3 [facility] T [facility] ACCESS 3 3 [facility] CR[facility], ACCESS 2 2 [facility] SHAYY - 2 2 [facility] T OFFICE 87386 VANESSA MENDEZ JR OUTPATIEN 2 2 MATIAS MATIAS T NEW 30 MINUTES CR[facility]ICAL [facility], ACCESS 2 2 [facility] CLINIC, MIN RURAL 1 1 [facility] CL[facility], MIN RURAL 1 1 [facility], MIN RURAL 1 1 [facility] CRITICAL PEREZ ACCESS 1 1 [facility] CLINIC, MIN RURAL 1 1 [facility], MIN RURAL 1 1 [facility], MIN RURAL 1 1 [facility] OFFICE 44104 MIN OUTPATIEN 1 1 CLINIC T VISIT PSC 15 MINUTES CLINIC, MIN RURAL 1 1 [facility] CLINIC, MIN RURAL 0 0 [facility] 25684 MIN OUTPATIEN 0 0 CLINIC T VISIT PSC 15 MINUTES OFFICE 73477 MIN OUTPATIEN 0 0 CLINIC T VISIT PSC 15 MINUTES CLINIC, MIN RURAL 0 0 [facility] OFFICE 51867 MIN OUTPATIEN 0 0 CLINIC T VISIT PSC 25 MINUTES CLINIC, MIN RURAL 0 0 [facility]INIC HEALTH PSC CRITICAL PEREZ ACCESS 0 0 [facility] OFFICE 59898 MIN OUTPATIEN 0 0 CLINIC T VISIT PSC 25 MINUTES OFFICE 49244 MIN OUTPATIEN 0 0 CLINIC T VISIT PSC 25 MINUTES CLINIC, MIN RURAL 0 0 [facility] OFFICE 84492 MIN OUTPATIEN 0 0 CLINIC T VISIT PSC 15 MINUTES CLINIC, MIN RURAL 0 0 [facility] CRITICAL PEREZ ACCESS 0 0 [facility] OFFICE 73979 MIN OUTPATIEN 0 0 CLINIC T VISIT PSC 15 MINUTES CLINIC[facility] MIN RURAL 0 0 [facility] CLINIC, MIN RURAL 0 0 [facility] OFFICE 25395 MIN OUTPATIEN 0 0 CLINIC T VISIT PSC 15 MINUTES CRITICAL PEREZ ACCESS 9 9 [facility] OFFICE 76457 MIN OUTPATIEN 9 9 CLINIC T VISIT PSC 25 MINUTES CLINIC, MIN RURAL 9 9 [facility] HEALTH PSC CLINIC, MIN RURAL 9 9 [facility] OFFICE 65883 MIN OUTPATIEN 9 9 CLINIC T VISIT PSC 15 MINUTES OFFICE 01561 MIN TAMAREN, OUTPATIEN 9 9 CLINIC KIMBERLY T VISIT PSC 15 MINUTES OFFICE 80917 MIN TAMAREN, OUTPATIEN 9 9 CLINIC [facility] T VISIT PSC 15 MINUTES OFFICE 81061 MOIRA MOFFETT 9 9 CLINIC [facility] T VISIT PSC 15 MINUTES OFFICE 59387 MOIRA MOFFETT 8 8 CLINIC [facility]IM[facility] T VISIT PSC 25 MINUTES [facility] 8 8 [facility] OFFICE 17678 MOIRA MOFFETT 8 8 CLINIC KIMBERLY T VISIT PSC 25 MINUTES OFFICE 20536 MOIRA MOFFETT 8 8 CLINIC KIMBERLY T VISIT PSC 15 MINUTES
--- OUTSIDE RECORDS SUMMARY | 2016-11-23 12:29 | External Medical Summary Rpt ---
Author Author , NATHANIEL ARMSTRONG Address Unknown Phone [email or web address] Mobile Care Team Providers Care Lock Technician Name Role Phone AHMED ADN, AHMED ADN Unavailable Unavailable ALI AMJ, ALI AMJ Unavailable Unavailable RAHMAN, RAHMAN Unavailable Unavailable [facility] Unavailable Unavailable [facility], [facility], [facility] Unavailable Unavailable [facility], Unavailable Unavailable [facility] Unavailable Unavailable [facility], Unavailable Unavailable [facility] LAITH GIRARD Unavailable Unavailable [facility], Unavailable Unavailable [facility] [place] [...] WILLIAN FOLEY S, Unavailable Unavailable WILLIAN FOLEY [facility], Unavailable Unavailable [facility], Unavailable Unavailable [facility] Unavailable Unavailable INC, [facility] OCHOA AUD, OCHOA AUD Unavailable Unavailable [facility] Unavailable Unavailable [facility], [facility] Un[facility], [facility] Unavailable Unavailable HOLDINGS, [facility] ZULETA, ZULETA Unavailable Unavailable [facility] Unavailable Unavailable ASSOCIAT, [facility] TOBIN, TOBIN Unavailable Unavailable [facility], AIR CONDITIONING MANAGER [facility] Unavailable Unavailable CO [facility], [facility] AIR CONDITIONING MANAGER [facility], Unavailable Unavailable [facility] LEONCIO DONAHUE MD Unavailable Unavailable CONSULTING SRV, LEONCIO DONAHUE MD CONSULTING SRV SCALF, SCALF Unavailable Unavailable SCALF KLEVER, SCALF KLEVER Unavailable Unavailable [facility], Unavailable Unavailable [facility] Unavailable Unavailable [facility], 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 INC R0600 DYSPNEA 04-30-2016 [facility] UNSPECIFIED [facility] INC R0602 SHORTNESS 04-30-2016 [facility] GROUP R9439 ABNORMAL 04-30-2016 [facility] RESULT OT PHYSICIANS CARDIOVASCU GROUP LR FUNCTION STUDY I10 ESSENTIAL 04-24-2016 [facility] N I209 ANGINA 04-24-2016 [facility] PECTORIS [facility] UNSPECIFIED INC I739 PERIPHERAL 04-24-2016 [facility] UNSPECIFIED R0989 OTH SPEC SX 04-24-2016 [facility] THE [facility]ING ASS CIRC & RESP SYS Z720 TOBACCO USE 04-24-2016 [facility] I208 OTHER FORMS 04-15-2016 [facility] PHYSICIANS PECTORIS GROUP 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 [facility] INSUFFICIEN CY I517 CARDIOMEGAL 04-15-2016 [facility] J440 COPD WITH 04-08-2016 [facility] RESPIRATORY INFECTION R079 CHEST PAIN 04-08-2016 [facility]PEC[facility] R4182 ALTERED 02-09-2016 [facility] STATUS UNSPECIFIED U99113 OTHER LONG 01-14-2016 [facility] CURRENT [facility]INGS DR[facility] THERAPY I5043 ACUTE ON 06-11-2015 LEONCIO DONAHUE CHRONIC COMB CONSULTING SYSTOLIC & SRV DIASTOLIC CHF D696 THROMBOCYTO 06-10-2015 [facility] UNSPECIFIED SERVI J111 FLU D/T 06-10-2015 [facility] UNIDENTIFIE N PHYSICIAN D FLU VIRUS SERVI W/OTH RESP MANIF J441 CHRONIC 06-10-2015 [facility] OBSTRUCTIVE N PHYSICIAN PULMONARY SERVI DZ W/EXACERBAT ION N179 ACUTE 06-10-2015 [facility] KIDNEY N PHYSICIAN FAILURE SERVI UNSPECIFIED G88026 DECREASED 06-09-2015 [facility] BLOOD [facility] CELL COUNT [facility] UNSPECIFIED E785 HYPERLIPIDE 06-09-2015 [facility] UNSPECIFIED HOSPITAL 496 CHRONIC 12-24-2014 [facility] NEC 2720 PURE 11-09-2014 LEONCIO DONAHUE HYPERCHOLES TEROLEMIA CONSULTING SRV 4019 UNSPECIFIED 11-09-2014 LEONCIO DONAHUE ESSENTIAL HYPERTENSIO CONSULTING N SRV 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 ATHEROSCLER OSIS SQUAXIN CONSULTING CORONARY SRV ARTERY 42515 OTHER 09-18-2014 [facility] NONSPECIFIC MEDICAL ABNORMAL [facility]AGING ASS FINDING OF LUNG FIELD 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 UNSPECIFIED 3899 UNSPECIFIED 04-30-2014 [facility] LOSS 5589 OTH&UNSPEC 05-03-2013 [facility] NONINFECTIO CLINIC US GASTROENTER ITIS&COLITI S 5781 BLOOD IN 05-03-2013 [facility] STOOL CLINIC 26238 ABDOMINAL 05-03-2013 [facility] PAIN, CLINIC UNSPECIFIED SITE 7823 EDEMA 10-11-2012 [facility] LEONCIO 7851 PALPITATION 09-01-2012 [facility] LEONCIO S 4280 CONGESTIVE 08-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 [facility], HEART AIR CONDITIONING MANAGER FAILURE [facility] UNSPECIFIED HOS 4293 CARDIOMEGAL 08-31-2012 [facility], Y AIR CONDITIONING MANAGER [facility] 4299 UNSPECIFIED 08-31-2012 [facility], HEART AIR CONDITIONING MANAGER [place] [facility] 92130 OTHER 08-02-2012 [facility] DISEASES OF [place] KATHLEEN LUNG NOT ELSEWHERE CLASSIFIED 4928 OTHER 06-09-2012 [facility] EMPHYSEMA [facility] INC 33580 SHORTNESS 05-05-2012 [facility], OF BREATH AIR CONDITIONING MANAGER [facility] 7862 COUGH 02-22-2012 [facility], AIR CONDITIONING MANAGER [facility] HOS 91443 OBSTRUCTIVE 02-08-2012 BELINDA CHRONIC EDWARD BRONCHITIS WITH EXACERBATIO N 605 REDUNDANT 08-27-2011 [facility] PREPUCE AND MEM [facility]P PHIMOSIS INC V5866 LONG-TERM 08-27-2011 [facility] USE OF MEM [facility] ASPIRIN INC 40995 UNSPECIFIED 08-20-2011 VANESSA JR URINARY MATIAS INCONTINENC E 63205 ESOPHAGEAL 08-18-2011 DON[facility] LEONCIO REFLUX 38613 ABDOMINAL 08-18-2011 [facility] LEONCIO PAIN, EPIGASTRIC 5780 HEMATEMESIS 08-14-2011 TAMCHRISTO SUE 99683 OTHER 08-13-[facility] SPLEEN ASSOCIAT 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 ASSOCIAT 5738 OTHER 08-13-2011[facility] SPECIFIED RADIOLOGY DISORDERS ASSOCIAT OF LIVER 16118 OTHER 08-13-2011[facility] SPECIFIED RADIOLOGY DISORDERS ASSOCIAT OF BLADDER 7245 UNSPECIFIED 08-13-2011 AHMED ADN BACKACHE 27220 CHEST PAIN 08-13-2011 AHMED ADN UNSPECIFIED 486 PNEUMONIA, 07-25-2011 LAUREN SUE ORGANISM UNSPECIFIED 21717 OTHER 07-23-2011 [facility] PAIN 14498 CHILLS 07-23-2011 [facility] WITHOUT HOSPITAL FEVER 75360 CLOSED 06-25-2011 [facility], FRACTURE OF [facility] RIB, [facility] UNSPECIFIED HOS 66135 CLOSED 06-25-2011 [facility] FRACTURE OF RADIOLOGY ONE RIB ASSOCIAT E8889 UNSPECIFIED 06-25-2011 [facility] ASS[facility]IAT 12962 GEN 04-22-2011 BELINDA OSTEOARTHRO EDWARD SIS INVOLVING MULTIPLE SITES 4619 ACUTE 02-23-2011 [facility] SINUSITIS, CLINIC [facility] UNSPECIFIED 7080 ALLERGIC 01-30-2011 [facility] URTICARIA CLINIC [facility] 9951 ANGIONEUROT 04-16-2010 MIN IC EDEMA CLINIC [facility] NOT ELSEWHERE CLASSIFIED 4139 OTHER AND 01-13-2010 [facility] UNSPECIFIED CLINIC PSC ANGINA PECTORIS 28286 OSTEOARTHRO 10-24-2009 MIN S UNSPEC CLINIC P[facility] WHETHER GEN/LOC UNSPEC SITE 28712 COR 05-29-2009[facility] UNSPEC ASSOCIATES TYPE VESSEL P[facility] SQUAXIN/JESSICA T 7931 NONSPEC 05-29-2009 [facility] O[facility] EXAM BODY STRUCT LUNG FIELD V1582 PERS HX 05-29-2009 [facility] TOBACCO USE HOSPITAL PRESENTING [facility] 7863 HEMOPTYSIS 12-05-2008 [facility] 89082 OSTEOARTHRO 07-26-2008 MIN SIS UNSPEC CLINIC PSC WHETHER GEN/LOC LOWER LEG 490 BRONCHITIS 04-27-2008 MIN NOT CLINIC PSC SPECIFIED ACUTE OR CHRONIC 73868 OTHER 04-27-2008 [facility] [place] [address] ABDOMINAL 01-17-2008 [facility] PAIN RIGHT HOSPITAL UPPER QUADRANT V4589 OTHER 01-17-2008 [facility] L STATUS OTHER V5869 LONG-TERM 01-17-2008 [facility] (CURRENT) HOSPITAL USE OF OTHER MEDICATIONS 6918 OTHER 08-11-2007 [facility] DERMATITIS AND RELATED CONDITIONS [...] 80 11 11 FA JA E 1 CA NE 20 LY T [address] UG CA PS UL E AL 24 10 10 0 24 24 SO 38 TA Ac LE 38 -0 -0 .0 PE 62 MA ti RG 50 7 7- RS 80 RE ve Y 46 20 20 N 25 26 11 11 FA JA 2 CA NE MG LY T CA DR PS UG UL E 00 10 10 0 30 30 SO 38 TA Ac 90 -0 -0 .0 PE 62 MA ti 45 7- 7- 00 RS 81 RE ve 82 20 20 N 94 11 11 FA JA 6 CA NE LY T DR UG CL 00 09 09 2 60 30 SO 38 TA Ac ON 22 -2 -2 .0 PE 50 MA ti AZ 83 3- 3- 00 RS 53 RE ve EP 00 20 20 N AM 35 11 11 FA JA 0 CA NE 0. LY T [address] UG TA BL ET TN 50 08 08 0 12 3 SO 38 TA Ac OM 38 -0 -0 0. PE 03 MA ti ET 30 4- 4- 00 RS 83 RE ve [place] 80 20 20 0 N ZI 41 11 11 FA JA NE 6 CA NE -C LY T OD EI DR NE UG SY RU P CL 00 07 07 2 30 30 SO 37 TA Ac ON 22 -0 -0 .0 PE 77 MA ti AZ 83 5- 5- 00 RS 43 RE ve EP 00 20 20 N AM 35 11 11 FA JA 0 CA NE 0. LY T [address] UG TA BL ET 00 07 07 0 24 4 SO 37 TA Ac 12 -0 -0 0. PE 77 MA ti 10 5- 5- 00 RS 60 RE ve 63 20 20 0 N 81 11 11 FA JA 6 CA NE LY T DR UG TN 50 06 06 0 24 6 SO 37 TA Ac OM 38 -0 -0 0. PE 51 MA ti ET 30 2- 2- 00 RS 85 RE ve [place] 80 20 20 0 N ZI 41 11 11 FA JA NE 6 CA NE -C LY T OD EI DR [...] AN TA Y BL IN ET C TN 00 09 09 24 6 HO 10 [...] YOUR SM VOL 7 PHARMACY PHARMACY NONFILTR [facility] PNEUMAT NEBULIZR DISPBL IPRATROPI J7644 YOUR YOUR UM 7 PHARMACY PHARMACY [facility] INHAL NON-CP U DOSE PER MG PRESSURIZ 57936 [facility] ED/NONPRE 7 [facility] SSURIZED INC INC INHALATIO N TREATMENT GAS 78711 [facility] LUC[facility] DILUT/WAS 7 [facility] HOUT LUNG INC INC VOL W/[place] DISTRIB VENT&[place] [address] [facility] LUCAS DIFFUSING 7 [facility] CAPACITY INC INC NONINVASI 16374 [facility] LUC[facility] VE 7 [facility] EAR/PULSE INC INC OXIMETRY MULTIPLE DETER BRNCDILAT 16386 [facility] RSPSE 7 [facility] SPMTRY INC INC PRE&POST- BRNCDILAT ADMN ADMN SET A7003 YOUR YOUR SM VOL 7 PHARMACY PHARMACY NONFILTR ASSURED PHARMACY LLC PNEUMAT NEBULIZR DISPBL IPRATROPI J7644 YOUR YOUR UM 7 PHARMACY PHARMACY [facility] INHAL NON-CP U DOSE PER MG NEBULIZER E0570 AX[facility] REYNA WITH 7 [facility] R EQUIPME EQUIPME PHRM Q0513 YOUR YOUR DISPENSIN 7 PHARMACY PHARMACY [facility] INHALATIO N RX; PER 30 DAYS IPRATROPI J7644 YOUR YOUR UM 7 PHARMACY PHARMACY [facility] INHAL NON-CP U DOSE PER MG ADMN SET A7003 YOUR YOUR SM VOL 7 PHARMACY [facility] PNEUMAT NEBULIZR DISPBL ECG 91472 [facility] ROUTINE 7 [facility] ECG INC INC W/LEAST 12 LDS TRCG ONLY W/O I&R NEBULIZER E0570 AXEL REYNA WITH 7 [facility] R EQUIPME EQUIPME INJECTION J1644 [facility] HEPARIN 7 [facility] SODIUM INC INC PER 1000 UNITS CATHETER C1725 [facility] TRANSLUMI 7 [facility] NAL INC INC ANGIOPLAS TY NON-LASER R & L HRT 89078 [facility] LUCAS CATH 7 [facility] WINJX HRT INC INC ART& L VENTR IMG GUIDE C1769 [facility] LUCAS WIRE 7 [facility] INC INC BASIC 35196 [facility] METABOLIC 7 [facility] PANEL INC INC CALCIUM TOTAL GASES 18981 [facility] BLOOD O2 7 [facility] SATURATIO INC INC N ONLY DIRECT JOSÉ LOCM Q9967 [facility] LUCAS 300-399 7 [facility] MG/ML INC INC IODINE CONCENTRA TION PER ML INTRDUCR/ C1894 [facility] LUC[facility] SHEATH 7 [facility] NOT GUID INC INC INTRACARD EP NON-LASR BLOOD 28812 [facility] LUCAS COUNT 7 [facility] COMPLETE INC INC AUTO&AUTO DIFRNTL WBC ECG 10554 [facility] LUCAS ROUTINE 7 [facility] ECG INC INC W/LEAST 12 LDS TRCG ONLY W/O I&R DUPLEX 87967 [facility] SCAN 6 MEDICAL EXTRACRAN IMAGING IAL ART ASS COMPL BI STUDY NON-INVAS 04853 [place] [facility] NIC 6 MEDICAL PHYSIOLOG IMAGING IC STUDY ASS EXTREMITY 3 LEVLS INJECTION J2785 [facility] LUCAS 6 [facility] REGADENOS INC INC ON 0.1 MG CV STRS 62358 [facility] TST 6 [facility] XERS&/OR INC INC RX CONT ECG TRCG ONLY MYOCARDIA 45596 [facility] Martin SPECT 6 [facility] MULTIPLE INC INC STUDIES TECHNETIU A9500 [facility] Duffy TC-99M 6 [facility] SESTAMIBI INC INC DX PER STUDY DOSE ECHO 87699 [facility] LUCAS TTHRC R-T 6 [facility] 2D INC INC W/WOM-MOD E COMPL SPEC&COLR D ECHO 47458 [place] [facility] TRANSTHOR 6 MEDICAL C R-T 2D SERV W/WO FOUNDATIO M-MODE N REC F-UP/LMTD NEBULIZER E0570 AXEL REYNA WITH 6 [facility] R EQUIPME EQUIPME ECG 92848 [facility] LUCAS ROUTINE 6 [facility] ECG INC INC W/LEAST 12 LDS TRCG ONLY W/O I&R ADMN SET A7003 YOUR YOUR SM VOL 6 PHARMACY PHARMACY [facility] PNEUMAT NEBULIZR DISPBL IPRATROPI J7644 YOUR YOUR UM 6 PHARMACY PHARMACY [facility] INHAL NON-CP U DOSE PER MG PHRM Q0513 YOUR YOUR DISPENSIN 6 PHARMACY PHARMACY [facility] INHALATIO N RX; PER 30 DAYS RADIOLOGI 98313 [facility] [place] SCALF C EXAM 6 RADIOLOGY CHEST 2 VIEWS FRONTAL&[place] [address] [facility] [place] SEBASTIAN HEAD/BRAI 6 RADIOLOGY N W/O CONTRAST MATERIAL ADMN SET A7003 YOUR YOUR SM VOL 6 PHARMACY PHARMACY [facility] PNEUMAT NEBULIZR DISPBL IPRATROPI J7644 YOUR YOUR UM 6 PHARMACY PHARMACY [facility] INHAL NON-CP U DOSE PER MG PHRM Q0513 YOUR YOUR DISPENSIN 6 PHARMACY PHARMACY [facility] INHALATIO N RX; PER 30 DAYS [...] INHAL NON-CP U DOSE PER MG [facility] [address] [facility] 6 PREMA DAY PHYSICIAN MANAGEMEN SERVI T > 30 MIN SBSQ 03931 [facility] CARE/DAY PHYSICIAN 25 SERVI MINUTES SBSQ 60937 [facility] 6 [facility] CARE/DAY PHYSICIAN 25 SERVI MINUTES ECHO 79825 LEONCIO DONAHUE DONAHUE LEONCIO TTHRC R-T 6 2D CONSULTIN W/WOM-MOD G SRV E COMPL SPEC&COLR D SBSQ 65134 [facility] 6 PREMA CARE/DAY PHYSICIAN 35 SERVI MINUTES INITIAL 11036 [facility] 6 [facility] CARE/DAY PHYSICIAN 70 SERVI MINUTES RADIOLOGI 06931 [facility] [place] SCALF KLEVER C EXAM 6 [...] INHAL NON-CP U DOSE PER MG ECG 36276 LEONCIO DONAHUE DONAHUE LEONCIO ROUTINE 5 MD [...] NON-CP U DOSE PER MG CT THORAX 15936 [place] [facility] W/O 5 MEDICAL ASHWINI CONTRAST IMAGING MATERIAL ASS IPRATROPI J7644 YOUR YOUR 5 PHARMACY PHARMACY [facility] LLC INHAL NON-CP U DOSE PER MG PHRM Q0513 YOUR YOUR DISPENSIN 5 PHARMACY PHARMACY [facility] LLC INHALATIO N RX; PER 30 DAYS COMPRE 41695 SPE[facility] SPEACH AUDIOMETR 5 ALB ALB Y THRESHOLD EVAL SP RECOGNIJ COLLECTIO 01929 MIN [place] N VENOUS 5 CLINIC CLINIC [...] INHALATIO N RX; PER 30 DAYS DUP-SCAN 25128 DONAHUE LEONCIO DONAHUE LEONCIO XTR VEINS 3 [...] INHALATIO N RX; PER 30 DAYS ECHO 17126 DONAHUE LEONCIO DONAHUE LEONCIO TTHRC R-T 3 2D W/WOM-MOD E COMPL SPEC&COLR D ECHO 06583 [facility] [employer], [facility], TTHRC R-T 3 AIR CONDITIONING MANAGER AIR CONDITIONING MANAGER 2D [facility] W/WOM-MOD CO HOS CO HOS E COMPL SPEC&COLR D ECG 26249 DONAHUE LEONCIO DONAHUE LEONCIO ROUTINE 3 ECG W/LEAST 12 LDS I&R ONLY ECG 10916 [facility] [employer], [facility], ROUTINE 3 AIR CONDITIONING MANAGER AIR CONDITIONING MANAGER ECG PEREZ [facility]Z W/LEAST CO HOS CO HOS 12 LDS TRCG ONLY W/O I&R PHRM Q0513 YOUR YOUR DISPENSIN 3 PHARMACY PHARMACY [facility] LLC INHALATIO N RX; PER 30 DAYS IPRATROPI J7644 YOUR YOUR UM 3 PHARMACY PHARMACY [facility] LLC INHAL NON-CP U DOSE PER MG RADIOLOGI 90727 [facility] [employer], [facility] [employer], C EXAM 3 AIR CONDITIONING MANAGER AIR CONDITIONING MANAGER CHEST 2 [facility] TODD VIEWS CO HOS CO HOS FRONTAL&L ATERAL COMPREHEN 93786 [facility] [employer], [facility], SIVE 3 AIR CONDITIONING MANAGER AIR CONDITIONING MANAGER METABOLIC [facility] TODD PANEL CO HOS CO HOS BLOOD 31498 [facility] [employer], [facility], COUNT 3 AIR CONDITIONING MANAGER AIR CONDITIONING MANAGER COMPLETE [facility] TODD AUTO&AUTO CO HOS CO HOS DIFRNTL WBC IPRATROPI J7644 YOUR YOUR UM 3 PHARMACY PHARMACY [facility] LLC INHAL NON-CP U DOSE PER MG PHRM Q0513 YOUR YOUR DISPENSIN 3 PHARMACY PHARMACY [facility] LLC INHALATIO N RX; PER [address] THORAX 44640 [facility] LUCAS W/O 3 [facility] CONTRAST INC INC MATERIAL 3D 67434 [facility] LUCAS RENDERING 3 [facility] INC INC W/INTERP& POSTPROC DIFF WORK STATION SPMTRY 50138 [facility] LUC[facility] W/VC 3 [facility] EXPIRATOR INC INC Y SHAWNA W/WO MXML VOL VNTJ NONINVASI 88223 [facility] LUCAS VE 3 [facility] EAR/PULSE INC INC OXIMETRY SINGLE DETER RADIOLOGI 13102 [facility], [facility], C EXAM 3 AIR CONDITIONING MANAGER AIR CONDITIONING MANAGER CHEST 2 [facility] VIEWS CO HOS CO HOS FRONTAL&L ATERAL ADMN SET A7003 YOUR YOUR SM VOL 2 PHARMACY PHARMACY NONFILTR PNEUMAT NEBULIZR DISPBL ALBUTEROL J7620 YOUR YOUR TO 2.5 2 PHARMACY PHARMACY MG & IPRATROPI UM BROM TO 0.5 MG RADIOLOGI 87703 [facility], [facility], C EXAM 2 AIR CONDITIONING MANAGER AIR CONDITIONING MANAGER CHEST 2 [facility] VIEWS CO HOS CO HOS FRONTAL&L ATERAL INJECTION J0696 BELINDA TREVINO 2 [facility] CEFTRIAXO NE SODIUM PER 250 MG INJECTION J1030 BELINDA TREVINO 2 [facility] METHYLPRE DNISOLONE ACETATE 40 MG ALBUTEROL J7620 YOUR YOUR TO 2.5 2 PHARMACY PHARMACY [employer] [facility] IPRATROPI UM BROM TO 0.5 MG ADMN SET A7003 YOUR YOUR SM VOL 2 PHARMACY PHARMACY [facility] PNEUMAT NEBULIZR DISPBL ADMN SET A7003 YOUR YOUR SM VOL 2 PHARMACY PHARMACY [facility] PNEUMAT NEBULIZR DISPBL ALBUTEROL J7620 YOUR YOUR TO 2.5 2 PHARMACY PHARMACY MG [facility] [facility] IPRATROPI UM BROM TO 0.5 MG ALBUTEROL J7620 YOUR YOUR TO 2.5 2 PHARMACY PHARMACY [employer] [facility] IPRATROPI UM BROM TO 0.5 MG ADMN SET A7003 YOUR YOUR SM VOL 2 PHARMACY PHARMACY [facility] ASSURED PHARMACY [facility] PNEUMAT NEBULIZR DISPBL ADMN SET A7003 YOUR YOUR SM VOL 2 PHARMACY PHARMACY [facility] PNEUMAT NEBULIZR DISPBL ALBUTEROL J7620 YOUR YOUR TO 2.5 2 PHARMACY PHARMACY [employer] [facility] IPRATROPI UM BROM TO 0.5 MG ALBUTEROL J7620 YOUR YOUR TO 2.5 2 PHARMACY PHARMACY [employer] IPRATROPI UM BROM TO 0.5 MG ADMN SET A7003 YOUR YOUR SM VOL 2 PHARMACY PHARMACY [facility] [place] [address] SHAYY LUCAS INFUSION 2 [facility] THERAPY INC INC PROPHYLAX IS/DX EA HOUR CIRCUMCIS 39594 SH[facility] LUCAS ION AGE 2 [facility] >28 [place] [address] SHAYY LUCAS INFUSION 2 [facility] THERAPY/P INC INC ROPHYLAXI S /DX 1ST TO 1 HR THERAPEUT 36547 [facility] LUCAS IC 2 [facility] INJECTION INC INC IV PUSH EACH NEW DRUG ECG 77162 DONAHUE LEONCIO DONAHUE LEONCIO ROUTINE 2 ECG W/LEAST 12 LDS I&R ONLY OBSERVATI 40450 LAUREN AGUILAR ON CARE 2 Apr DISCHARGE MANAGEMEN T RADEX ABD 22853 [facility] COMPL 2 EIDER KATHLEEN AQT ABD RADIOLOGY W/S/E/D ASSOCIAT V[place] [place] [address] [facility] ABDOMEN & 2 MAGALYS PELVIS RADIOLOGY W/O ASSOCIAT CONTRST 1/> BODY [facility] 60240 LAUREN AGUILAR DISCHARGE 2 Apr DAY MANAGEMEN T 30 MIN/< RADIOLOGI 24616 [facility] C 2 KLEVER EXAMINATI RADIOLOGY ON CHEST ASSOCIAT SINGLE VIEW FRONTAL RADEX 77404 [employer], [employer], RIBS UNI 2 AIR CONDITIONING MANAGER AIR CONDITIONING MANAGER W/POSTERO PEREZ TODD ANT CH CO HOS CO HOS MINIMUM 3 VIEWS RADIOLOGI 44290 [employer], [employer], C EXAM 2 AIR CONDITIONING MANAGER AIR CONDITIONING MANAGER CHEST 2 PEREZ PEREZ VIEWS CO HOS CO HOS FRONTAL&L ATERAL ALBUTEROL J7620 YOUR YOUR TO 2.5 2 PHARMACY PHARMACY [employer] IPRATROPI UM BROM TO 0.5 MG ADMN SET A7003 YOUR YOUR SM VOL 2 PHARMACY PHARMACY [facility] PNEUMAT NEBULIZR DISPBL INJECTION J0696 BELINDA TREVINO 2 [facility] CEFTRIAXO NE SODIUM PER 250 MG INJECTION J1030 BELINDA TREVINO 2 [facility] METHYLPRE DNISOLONE ACETATE 40 MG ALBUTEROL J7620 YOUR YOUR TO 2.5 2 PHARMACY PHARMACY [facility] IPRATROPI UM BROM TO 0.5 MG ADMN SET A7003 YOUR YOUR SM VOL 2 PHARMACY PHARMACY [facility] PNEUMAT NEBULIZR DISPBL ADMN SET A7003 YOUR YOUR SM VOL 1 PHARMACY PHARMACY [facility] PNEUMAT NEBULIZR DISPBL ALBUTEROL J7620 YOUR YOUR TO 2.5 1 PHARMACY PHARMACY [facility] IPRATROPI UM BROM TO 0.5 MG INJECTION [...] YOUR YOUR TO 2.5 1 PHARMACY PHARMACY [facility] IPRATROPI UM BROM TO 0.5 MG ADMN SET A7003 YOUR YOUR SM VOL 1 PHARMACY PHARMACY [facility] PNEUMAT NEBULIZR DISPBL ADMN SET A7003 YOUR YOUR SM VOL 1 PHARMACY PHARMACY [facility] PNEUMAT NEBULIZR DISPBL ALBUTEROL J7620 YOUR YOUR TO 2.5 1 PHARMACY PHARMACY [facility] IPRATROPI UM BROM TO 0.5 MG PHRM Q0513 YOUR YOUR DISPENSIN 1 PHARMACY PHARMACY [facility] INHALATIO N RX; PER 30 DAYS INJECTION J1100 MIN TREVINO 1 [facility] DEXAMETHO PSC SONE SODIUM PHOSPHATE 1 MG RADIOLOGI 82058 [facility] EXAM 1 KLEVER CHEST 2 RADIOLOGY VIEWS ASSOCIAT FRONTAL&L ATERAL INJECTION J1100 MIN TREVINO 1 [facility] DEXAMETHO PSC SONE SODIUM PHOSPHATE 1 MG ALBUTEROL J7620 YOUR YOUR TO 2.5 1 PHARMACY PHARMACY MG [facility] [facility] IPRATROPI UM BROM TO 0.5 MG ADMN SET A7003 YOUR YOUR SM VOL 1 PHARMACY PHARMACY [facility] PNEUMAT NEBULIZR DISPBL PHRM Q0513 YOUR YOUR DISPENSIN 1 PHARMACY PHARMACY [facility] INHALATIO N RX; PER 30 DAYS PHRM Q0513 YOUR YOUR DISPENSIN 1 PHARMACY PHARMACY [employer] [facility] INHALATIO N RX; PER 30 DAYS ADMN SET A7003 YOUR YOUR SM VOL 1 PHARMACY PHARMACY [facility] PNEUMAT NEBULIZR DISPBL ALBUTEROL J7620 YOUR YOUR TO 2.5 1 PHARMACY PHARMACY [employer] [facility] IPRATROPI UM BROM TO 0.5 MG ALBUTEROL J7620 YOUR YOUR TO 2.5 0 PHARMACY PHARMACY [employer] [facility] IPRATROPI UM BROM TO 0.5 MG ADMN SET A7003 YOUR YOUR SM VOL 0 PHARMACY PHARMACY [facility] PNEUMAT NEBULIZR DISPBL PHRM Q0513 YOUR YOUR DISPENSIN 0 PHARMACY PHARMACY [employer] [facility] INHALATIO N RX; PER 30 DAYS INJECTION J1030 MIN TAMAREN 0 CLINIC VIKRAM METHYLPRE PSC DNISOLONE ACETATE 40 MG INJECTION J1100 MIN TAMAREN 0 CLINIC VIKRAM DEXAMETHO PSC SONE SODIUM PHOSPHATE 1 MG ALBUTEROL J7620 YOUR YOUR TO 2.5 0 PHARMACY PHARMACY [employer] [facility] IPRATROPI UM BROM TO 0.5 MG ADMN SET A7003 YOUR YOUR SM VOL 0 PHARMACY PHARMACY [employer] [facility] PNEUMAT NEBULIZR DISPBL PHRM Q0513 YOUR YOUR DISPENSIN 0 PHARMACY PHARMACY [employer] [facility] INHALATIO N RX; PER 30 DAYS PHRM Q0513 YOUR YOUR DISPENSIN 0 PHARMACY PHARMACY [employer] [facility] INHALATIO N RX; PER 30 DAYS ADMN SET A7003 YOUR YOUR SM VOL 0 PHARMACY PHARMACY NONFILTR LLC LLC PNEUMAT NEBULIZR DISPBL ALBUTEROL J7620 YOUR YOUR TO 2.5 0 PHARMACY PHARMACY MG & LLC LLC IPRATROPI UM BROM TO 0.5 MG BLOOD 68884 PEREZ TODD COUNT 0 CO [facility] MCRSCP W/MNL DIFRNTL WBC COUNT BASIC 01824 PEREZ TODD METABOLIC 0 CO CO PANEL [facility] CALCIUM TOTAL CREATINE 36387 PEREZ TODD KINASE MB 0 CO [facility] ONLY BLOOD 65390 PEREZ TODD COUNT 0 CO CO COMPLETE [facility] AUTO&[place] [address] PEREZ TODD TROPONIN 0 [facility] COL[facility] 35483 PEREZ TODD N VENOUS 0 CO LA BLOOD [facility] VENIPUNCT URE CREATINE 46256 PEREZ TODD KINASE 0 CO CO TOTAL [facility] MYOGLOBIN 21794 PEREZ TODD 0 CO [facility] LIPID 47085 PEREZ TODD PANEL [address] [facility] PHRM Q0513 YOUR YOUR DISPENSIN 0 PHARMACY PHARMACY G FEE INHALATIO N RX; PER 30 DAYS ALBUTEROL J7620 YOUR YOUR TO 2.5 0 PHARMACY PHARMACY MG & IPRATROPI UM BROM TO 0.5 MG ADMN SET A7003 YOUR YOUR SM VOL 0 PHARMACY PHARMACY NONFILTR PNEUMAT NEBULIZR DISPBL CT THORAX 90967 PEREZ TODD 0 CO CO W/PSYCHIATRIC T MATERIAL COLLECTIO 51792 PEREZ TODD N VENOUS 0 CO [facility] VENIPUNCT URE 3D 36546 PEREZ TODD RENDERING 0 CO [facility] & POSTPROCE SS SUPERVISI ON ALBUTEROL [...] HOME MED COMPRESSO EQUIP. EQUIP. R LLC [facility] PHRM Q0513 YOUR YOUR DISPENSIN 9 PHARMACY PHARMACY [employer] [facility] INHALATIO N RX; PER 30 DAYS ADMN SET A7003 AXEL REYNA SM VOL 9 HOME MED HOME MED NONFILTR EQUIP. EQUIP. PNEUMAT ASSURED PHARMACY [facility] NEBULIZR DISPBL ALBUTEROL J7620 YOUR YOUR TO 2.5 9 PHARMACY PHARMACY [employer] [facility] IPRATROPI UM BROM TO 0.5 MG NEBULIZER E0570 AXEL REYNA WITH 9 HOME MED HOME MED COMPRESSO EQUIP. EQUIP. R LLC [facility] PHRM Q0513 YOUR YOUR DISPENSIN 9 PHARMACY PHARMACY [employer] [facility] INHALATIO N RX; PER 30 DAYS ALBUTEROL J7620 YOUR YOUR TO 2.5 9 PHARMACY PHARMACY [employer] [facility] IPRATROPI UM BROM TO 0.5 MG NEBULIZER E0570 AXEL REYNA WITH 9 HOME MED HOME MED COMPRESSO EQUIP. EQUIP. R ASSURED PHARMACY [facility] PHRM Q0513 YOUR YOUR DISPENSIN 9 PHARMACY PHARMACY [facility] INHALATIO N RX; PER 30 DAYS ALBUTEROL J7620 YOUR YOUR TO 2.5 9 PHARMACY PHARMACY MG & IPRATROPI UM BROM TO 0.5 MG NEBULIZER E0570 AXEL REYNA WITH 9 HOME MED HOME MED COMPRESSO EQUIP. EQUIP. R ASSURED PHARMACY [facility] PHRM Q0513 YOUR YOUR DISPENSIN 9 PHARMACY PHARMACY [employer] [facility] INHALATIO N RX; PER 30 DAYS ALBUTEROL J7620 YOUR YOUR TO 2.5 9 PHARMACY PHARMACY [employer] [facility] IPRATROPI UM BROM TO 0.5 MG CREATININ 41339 PEREZ TODD E BLOOD 9 [facility] 3D 69623 PEREZ TODD RENDERING 9 [facility] & POSTPROCE SS SUPERVISI ON ADMN SET A7005 YOUR YOUR W/SM VOL 9 PHARMACY PHARMACY [facility] NEBULIZR NON-DISPB L COLLECTIO 88668 PEREZ TODD N VENOUS 9 CO CO BLOOD [facility] VENIPUNCT URE CT THORAX 05086 PEREZ TODD 9 CO CO W/CONTRAS [facility] [place] [address] PEREZ TODD UREA 9 CO CO NITROGEN [facility] QUANTITAT INC RADIOLOGI 92545 Favio ALVES EXAM 9 WILLIAN S CHEST 2 RADIOLOGY VIEWS FRONTAL&L ASSOCIATE ALEXI Freeman PSC NEBULIZER E0570 AXEL REYNA WITH 9 HOME MED HOME MED COMPRESSO EQUIP. EQUIP. R LLC LLC PHRM Q0513 YOUR YOUR DISPENSIN 9 PHARMACY PHARMACY [employer] [facility] INHALATIO N RX; PER 30 DAYS ALBUTEROL J7620 YOUR YOUR TO 2.5 9 PHARMACY PHARMACY [employer] [facility] IPRATROPI UM BROM TO 0.5 MG ADMN SET A7003 YOUR YOUR SM VOL 9 PHARMACY PHARMACY [facility] PNEUMAT NEBULIZR DISPBL NEBULIZER E0570 AXEL REYNA WITH 9 HOME MED HOME MED COMPRESSO EQUIP. EQUIP. R LLC LLC PHRM Q0513 YOUR YOUR DISPENSIN 9 PHARMACY PHARMACY [employer] [facility] INHALATIO N RX; PER 30 DAYS ADMN SET A7003 YOUR YOUR SM VOL 9 PHARMACY PHARMACY [facility] PNEUMAT NEBULIZR DISPBL ALBUTEROL J7620 YOUR YOUR TO 2.5 9 PHARMACY PHARMACY [employer] [facility] IPRATROPI UM BROM TO 0.5 MG NEBULIZER E0570 AXEL REYNA WITH 9 HOME MED HOME MED COMPRESSO EQUIP. EQUIP. R LLC LLC NEBULIZER E0570 AXEL AXEL WITH 9 HOME MED HOME MED COMPRESSO EQUIP. EQUIP. R LLC LLC PHRM Q0513 YOUR YOUR DISPENSIN 9 PHARMACY PHARMACY [employer] [facility] INHALATIO N RX; PER 30 DAYS ADMN SET A7003 YOUR YOUR SM VOL 9 PHARMACY PHARMACY [facility] PNEUMAT NEBULIZR DISPBL ALBUTEROL J7620 YOUR YOUR TO 2.5 9 PHARMACY PHARMACY [employer] [facility] IPRATROPI UM BROM TO 0.5 MG NEBULIZER E0570 AXEL REYNA WITH 9 HOME MED HOME MED COMPRESSO EQUIP. EQUIP. R LLC LLC PHRM Q0513 YOUR YOUR DISPENSIN 9 PHARMACY PHARMACY [employer] [facility] INHALATIO N RX; PER 30 DAYS ADMN SET A7003 YOUR YOUR SM VOL 9 PHARMACY PHARMACY [facility] PNEUMAT NEBULIZR DISPBL ALBUTEROL J7620 YOUR YOUR TO 2.5 9 PHARMACY PHARMACY [employer] [facility] IPRATROPI UM BROM TO 0.5 MG NEBULIZER E0570 AXEL REYNA WITH 9 HOME MED HOME MED COMPRESSO EQUIP. EQUIP. R LLC LLC PHRM Q0513 YOUR YOUR DISPENSIN 9 PHARMACY PHARMACY [employer] LLC INHALATIO N RX; PER 30 DAYS ALBUTEROL J7620 YOUR YOUR TO 2.5 9 PHARMACY PHARMACY [employer] LLC IPRATROPI UM BROM TO 0.5 MG ADMN SET A7003 YOUR YOUR SM VOL 9 PHARMACY PHARMACY [facility] PNEUMAT NEBULIZR DISPBL NEBULIZER E0570 AXEL REYNA WITH 9 HOME MED HOME MED COMPRESSO EQUIP. EQUIP. R LLC LLC NEBULIZER E0570 AXEL REYNA WITH 9 HOME MED HOME MED COMPRESSO EQUIP. EQUIP. R LLC LLC ADMN SET A7003 AXEL REYNA SM VOL 9 HOME MED HOME MED NONFILTR EQUIP. EQUIP. PNEUMAT ASSURED PHARMACY LLC NEBULIZR DISPBL ALBUTEROL J7620 YOUR YOUR TO 2.5 9 PHARMACY PHARMACY [employer] [facility] IPRATROPI UM BROM TO 0.5 MG PHARM G0333 YOUR YOUR DISPEN 9 PHARMACY PHARMACY FEE INHAL ASSURED PHARMACY LLC RX; INITIAL 30-DAY SUPPLY RADEX 24935 PEREZ TODD ABDOMEN 8 CO CO [facility] W/DCBTS&/ ERC VIEWS ANTIBODY 57742 PEREZ TODD HELICOBAC 8 CO [facility] COLLECTIO 38381 PEREZ PEREZ Wesley VENOUS 8 CO CO BLOOD [facility] [place] [address] PEREZ PEREZ AMYLASE [address] [facility] BASIC 70996 PEREZ TODD METABOLIC 8 CO CO PANEL [facility] [place] [address] PEREZ PEREZ LIPASE [address] [facility] BLOOD 14921 PEREZ TODD COUNT 8 CO [facility] AUTO&AUTO DIFRNTL WBC HEPATIC 89829 PEREZ PEREZ FUNCTION 8 CO [facility] Encounters Encounter Start End Date Code Location Performer Type Date [facility] - 7 7 [facility] 7 7 [facility] - 7 7 [facility] - 7 7 [facility] - 6 6 [facility] - 6 6 [facility] 6 6 [facility] 99169 PA MA[facility] OUTPATIEN 6 6 MEDICAL T VISIT SERV 25 FOUNDATIO MINUTES [facility] EMERGENCY 36444 [facility] DEPT 6 6 [facility] VISIT EMERGENCY HIGH PHYS SEVERITY& THREAT [facility] SHAYY - 5 5 [facility] OFF[facility] 89699 MIN [facility] 4 4 CLINIC T [facility]ISIT 15 MINUT[facility] CLINIC, MIN [facility] 4 4 [facility]IN[facility] HEALTH CR[facility]ICAL [facility] ACC[facility] 3 3 [facility] ACCESS 3 3 [facility] CR[facility], ACCESS 3 3 [facility] - 3 3 [facility] - 3 3 [facility] T [facility] ACCESS 3 3 [facility] ACCESS 2 2 [facility] SHAYY - 2 2 [facility] T OFFICE 70933 VANESSA MENDEZ JR OUTPATIEN 2 2 MATIAS MATIAS T NEW 30 MINUTES CR[facility]ICAL [facility] ACCESS 2 2 [facility] CLINIC, MIN RURAL 1 1 [facility] CLINIC, [facility] 1 1 [facility] CLIN[facility], [facility]URAL 1 1 [facility] CRITICAL PEREZ ACCESS 1 1 [facility], [facility]URAL 1 1 [facility] CLINIC, MIN RURAL 1 1 [facility] CLINIC, MIN RURAL 1 1 [facility] OFFICE 52728 MIN OUTPATIEN 1 1 CLINIC T VISIT PSC 15 MINUTES CLINIC, MIN RURAL 1 1 [facility] CLINIC, MIN RURAL 0 0 [facility] OFFICE 70245 MIN OUTPATIEN 0 0 CLINIC T VISIT PSC 15 MINUTES OFFICE 76982 MIN OUTPATIEN 0 0 CLINIC T VISIT PSC 15 MINUTES CLINIC, MIN RURAL 0 0 [facility] OFFICE 78925 MIN OUTPATIEN 0 0 CLINIC T VISIT PSC 25 MINUTES CLINIC, MIN RURAL 0 0 CLINIC HEALTH PSC CRITICAL PEREZ ACCESS 0 0 [facility] OFFICE 17901 MIN OUTPATIEN 0 0 CLINIC T VISIT PSC 25 MINUTES OFFICE 96667 MIN OUTPATIEN 0 0 CLINIC T VISIT PSC 25 MINUTES CLINIC, MIN RURAL 0 0 [facility] OFFICE 19536 MIN OUTPATIEN 0 0 CLINIC T VISIT PSC 15 MINUTES CLINIC, MIN RURAL 0 0 [facility] CRITICAL PEREZ ACCESS 0 0 [facility] OFFICE 14430 MIN OUTPATIEN 0 0 CLINIC T VISIT PSC 15 MINUTES CLINIC, MIN RURAL 0 0 [facility] CLINIC, MIN RURAL 0 0 [facility] OFFICE 28047 MIN OUTPATIEN 0 0 CLINIC T VISIT PSC 15 MINUTES CRITICAL PEREZ ACCESS [address] [facility] OFFICE 99690 MIN OUTPATIEN 9 9 CLINIC T VISIT PSC 25 MINUTES CLINIC, MIN RURAL 9 9 [facility] CLINIC, MIN RURAL 9 9 [facility] OFFICE 09041 MIN OUTPATIEN 9 9 CLINIC T VISIT PSC 15 MINUTES OFFICE 78252 MIN TAMAREN, OUTPATIEN 9 9 CLINIC [facility] T VISIT PSC 15 MINUTES OFFICE 69841 MIN TAMAREN, OUTPATIEN 9 9 CLINIC K[facility] T VISIT PSC 15 MINUTES OFFICE 38824 MOIRA MOFFETT 9 9 CLINIC [facility] T VISIT PSC 15 MINUTES OFFICE 74886 MOIRA MOFFETT 8 8 CLINIC [facility] T VISIT PSC 25 MINUTES [facility] 8 [facility] OFF[facility] 33486 MOIRA MOFFETT 8 8 CLINIC KIMBER[facility] T VISIT PSC 25 MINUTES OFFICE 67000 MOIRA MOFFETT 8 8 CLINIC KIMBER[facility] T VISIT PSC 15 MINUTES
--- OUTSIDE RECORDS SUMMARY | 2016-11-23 12:30 | External Medical Summary Rpt ---
Demographics Preferred Language German Marital Status Unknown Caodaism Affiliation Unknown Race Unknown Ethnic Group Unknown Author Author , NATHANIEL ARMSTRONG Address Unknown Phone Immunization Unable to retrieve immunization data due to connection failure with Immunization Registry. Please try again later.
--- OUTSIDE RECORDS SUMMARY | 2016-11-23 12:30 | External Medical Summary Rpt ---
Author Author NATHANIEL Beckman, [employer] Address Unknown Phone Unavailable
--- OUTSIDE RECORDS SUMMARY | 2016-11-23 12:30 | External Medical Summary Rpt ---
Demographics Preferred Language Belarusian Marital Status Unknown Rastafarian Affiliation Unknown Race Unknown Ethnic Group Unknown Author Author , NATHANIEL ARMSTRONG Address Unknown Phone Immunization Unable to retrieve immunization data due to connection failure with Immunization Registry. Please try again later.
[2016-11-23] MEDS ORDERED: DOXYCYCLINE HY100 MG PO (14:27)
[2016-11-23 14:36] VITALS: BP 139/74
--- NOTE | 2016-11-23 14:46 | RADIOLOGY REPORT PS360 ---
US SCROTUM HISTORY: scrotal edema x two days; able to urinate; not diabetic Ordering Physician: Barbie Crespo MD Patient Age: 76 years: Male TECHNIQUE: Ultrasound both right and left hemiscrotum FINDINGS Generous bilateral hydroceles . Fluid seen throughout both testicles. RIGHT TESTICLE. Normal size measuring 3.7 cm length as 1.9 cm x 2.8 cm. Good color Doppler flow to the testicle. Generous head of right epididymis on vaguely measuring up to 2.2 x 1.4 cm and mildly hyperechoic. Conceivably could reflect recurrent epididymitis or old epididymitis Right hemiscrotum. Generous surrounds right testicle The patient was tender the right groin. Scanning was performed up to the right groin. The fluid at the right hemiscrotum did not seem to track proximally along along right inguinal canal. No obvious hernia could be identified LEFT TESTICLE: normal size. 3.25 cm length x 3.3 cm x 2.3 cm Modest but but adequate color Doppler flow to the left testicle. Slightly more optimal on right than left Epididymis and Head Left epididymis normal size. = head epididymis 8 mm x 13 mm Slight increased echogenicity at towards the tail of epididymis could reflect old epididymitis. Left hemiscrotum. Generous surrounds left testicle. However in addition there is a septated ovoid cystic-appearing area superior to the left testicle measures up to 4.7 cm in length. X 3 cm AP Moderate wall thickness. This could be a a very large spermatocele or could be a septation and wall area associated with a hydrocele septations can be associated with infected fluid. Correlation required . Urology follow-up recommended We also scanned the left groin and saw no obvious hernia. Also fluid from the left hemiscrotum did not track along the left inguinal canal towards the inguinal ring. . Limited scanning of the abdomen shows no obvious nor gross ascites. No fluid at Morison's Pouch fluid. Moderate size bladder IMPRESSION: 1. Generous bilateral hydroceles. 2. Additional cystic fluid collection measured 4.6 cm superior to the left testicle either reflecting a large spermatocele or separate walled off area of hydrocele. Septations from infection briefly considered. Requires correlation. 3. Right & left testicle themselves appear normal With Adequate flow to both testicles right more optimal than left 4. Possible epididymitis? ... Head of right epididymis is generous in size slightly echogenic could reflect recent or prior epididymitis but nonspecific .. Tail of left epididymis is slightly hyperechoic in generous in could conceivably reflect prior or recent epididymitis 5. No hernia identified either right or left groin on on today's study.. Addendum.: Additional cine loop image sequences performed at the end of the study and available in PACS
== END 2016-11-23 14:36 | disposition home or self-care (01) ==
LOC: ER 11:50
PROVIDERS: Emergency Medicine
DX: N43.3 Hydrocele, unspecified (principal); J44.9 Chronic obstructive pulmonary disease, unspecified; Z72.0 Tobacco use